=== PATIENT | female | born 1990 | race Caucasian/White ===

== ENCOUNTER → 2021-02-15 14:19 | Outpatient (BNVA) | payer MEDICAID, SELFPAY | PROVIDERS: Family Provider Family Medicine; Visit Provider Nurse Practitioner Women's Health | DX: Z32.01 Encounter for pregnancy test, result positive (principal); N92.6 Irregular menstruation, unspecified; Z87.59 Personal history of other complications of pregnancy, childbirth and the puerperium | CPT/HCPCS: 81025; 84702 ==

== ENCOUNTER → 2021-02-19 15:23 | Outpatient (BNVA) | payer MEDICAID, SELFPAY | PROVIDERS: Family Provider Family Medicine; Visit Provider Nurse Practitioner Women's Health | DX: Z34.90 Encounter for supervision of normal pregnancy, unspecified, unspecified trimester (principal) | CPT/HCPCS: 84702 ==

== ENCOUNTER 2021-03-03 22:56 | Emergency (ER) | payer MEDICAID, SELFPAY ==
[2021-03-03 23:13] VITALS: BP 123/65; PULSE 90; RESP 15; TEMP 36.9; O2SAT 100; BMI 31.1
--- NOTE | 2021-03-04 01:37 | W.ED.PREGNAN ---
HPI - General: Chief complaint: OB/Uterine Contractions Stated complaint: Possible Miscarriage Time Seen by Provider: 03/04/21 01:09 Source: patient Mode of arrival: ambulatory Limitations: no limitations History of Present Illness: HPI Narrative: Patient is a 30-year-old female here at approximately 6 weeks for concerns of a probable miscarriage. She states has been confirmed and [facility] She reportedly had an ultrasound a week ago that she was told was ordered by mistake stating that she was told they normally do not order ultrasounds that early. She reports the US read her as a little over 5 weeks and they did not visualize HR but was told this was normal given her dates. She states today she began having a small amount of vaginal bleeding and cramping. She states bleeding is not enough to soak a pad. Patient is very tearful as she has had several miscarriages previously. MD Complaint: vaginal bleeding and other (probable miscarriage) Onset (ago): hour(s) Location: pelvis Severity: mild Quality: Cramping Relieving factors: none Exacerbating factors: none Vaginal discharge: none Vaginal bleeding: light Date of Last Menstrual Period: 01/16/21 Patient : Yes OB History - Previous Pregnancies: miscarriage care: followed by OB Associated symptoms: Deny abdominal pain, dyspareunia, dysuria, headache(s), malaise, nausea, vaginal discharge or vomiting Review of Systems Const: Denies: fever(s), chills, body aches, fatigue or malaise Card: Denies: chest pain Resp: Denies: dyspnea GI: Denies: abdominal pain, nausea, vomiting or diarrhea : Reports: vaginal bleeding and pelvic pain (mild cramping); Denies: flank pain, difficulty voiding, dysuria, urinary frequency, urinary urgency, urinary hesitancy, hematuria, genital lesions, genital pruritis, vaginal odor, vaginal discharge or dyspareunia Musc: Denies: neck pain or back pain Skin/Breast: Denies: rash Neuro: Denies: headache(s), numbness in extremities, weakness in extremities or sensory changes PFSH ED PFSH: Medical History (Updated 03/04/21 @ 02:35 by JORDIN Marion) No pertinent past medical history neg hx: hypertension, diabetes, thyroid, DVT/PE PCP: none Surgical History (Updated 02/15/21 @ 15:22 by Macey Ramirez APN, HUSSEIN) H/O dilation and curettage x1-- SAB H/O wisdom tooth extraction 2014 S/P cholecystectomy 2017 Family History Mother Diabetes Grandmother Breast cancer paternal, age onset 40's Father Diabetes Hypertension Hyperlipidemia Thyroid condition Grandfather Heart disease paternal Family/Other Uterine cancer maternal aunt, age onset 30's Ovarian cancer maternal aunt, age onset 30's Denies family history of Colon cancer Clotting disorder Anesthesia complication Bleeding disorder Stroke Female Reproductive History: Date of last menstrual period: 01/16/21 Physical Exam Const: COMMON NORMALS: no acute distress, patient oriented x3, no limitations and alert GENERAL APPEARANCE: cooperative, anxious and other (tearful) ORIENTATION/CONSCIOUSNESS: Yes awake, Yes oriented to person, Yes oriented to place and Yes oriented to time Resp: COMMON NORMALS: normal respiratory effort and clear to auscultation bilaterally AUSCULTATION: clear to auscultation bilaterally Cardio: COMMON NORMALS: regular rate and regular rhythm RATE: regular rate RHYTHM: regular rhythm GI: COMMON NORMALS: Normal to inspection, nondistended, normoactive bowel sounds present, Soft to palpation, non-tender, No hepatosplenomegaly present and no masses PALPATION: Yes Soft to palpation and Yes No hepatosplenomegaly present : COMMON NORMALS: Yes no CVA tenderness BLADDER/KIDNEY EXAM: Yes no CVA tenderness OB/EXTERNAL & SPECULUM: Deferred OB/external & speculum exam MANUAL OB EXAM: Deferred manual OB exam Back/Pelvis: COMMON NORMALS: no CVA tenderness Neuro: COMMON NORMALS: patient oriented x3 SENSORIUM/ORIENTATION: Yes alert, Yes oriented to person, Yes oriented to place and Yes oriented to time Skin: COMMON NORMALS: no rashes or lesions noted GENERAL SKIN EXAM: no rashes or lesions noted Course Vital Signs: Vital signs: Vital Signs Temperature 98.4 F 03/04/21 03:15 Pulse Rate 82 03/04/21 03:15 Respiratory Rate 16 03/04/21 03:15 Blood Pressure 118/78 03/04/21 03:15 Pulse Oximetry 99 03/04/21 03:15 MDM - OB/Uterine Contractions MDM Narrative: Medical decision making narrative: Patient had hcg performed almost 14 days ago at [facility] and it was 779. Today it is decreased to 613. I informed patient that most likely this will not be a viable given these results. I do not think US at this time would be overly beneficial as she is still incredibly early and she just had one less than a week ago. I expressed the importance of following up with [facility] so they can continue to monitor this-she states she probably won't follow up with them but said she will find another provider. Strict return to ED precautions given regarding worsening bleeding, cramping, fevers. She verbalized understanding. Lab Data: Labs: Lab Results 03/04/21 03/04/21 03/04/21 Range/Units 01:40 01:40 01:40 WBC 9.6 (4.0-10.0) 10^3/ uL RBC 4.33 (4.1-5.3) 10^6/u L Hgb 11.5 (11.5-15.3) g/dL Hct 37.1 (37.0-47.0) % MCV 85.7 (81-99) fL MCH 26.6 L (28.0-34.0) pg MCHC 31.0 (30.0-36.0) g/dL RDW 13.9 (12.1-15.1) % Plt Count 262 (130-400) 10^3/c mm MPV 10.3 (7.4-10.4) fL Neut % (Auto) 60.8 % Lymph % (Auto) 30.7 % Upton % (Auto) 6.7 % Eos % (Auto) 1.1 % Baso % (Auto) 0.4 % Neut # (Auto) 5.85 (1.8-7.7) 10^3/u L Lymph # (Auto) 3.0 (0.8-4.8) 10^3/u L Upton # (Auto) 0.7 (0.2-0.9) 10^3/u L Eos # (Auto) 0.1 (0.0-0.8) 10^3/u L Baso # (Auto) 0.0 (0.0-0.1) 10^3/u L Nucleated RBC % (a uto) 0 % Nucleated RBCs # 0.0 /100WBC Sodium 141 (136-145) mmol/L Potassium 3.6 (3.5-5.1) mmol/L Chloride 106 (98-107) mmol/L Carbon Dioxide 25 (22-29) mmol/L Anion Gap 13.6 (5-19) BUN 9 (6-20) mg/dL Creatinine 0.6 (0.5-0.9) mg/dL GFR Calculation 119.0 (90-130) mL/min Glucose 94 (65-115) mg/dL Calculated Osmolal ity 290 (285-295) mOsm/k g Calcium 8.9 (8.5-10.5) mg/dL Total Bilirubin 0.2 (0.15-1.2) mg/dL AST 13 (0-32) U/L ALT 10 (0-33) U/L Alkaline Phosphata se 85 (35-105) IU/L Total Protein 6.6 (6.6-8.7) g/dL Albumin 3.9 (3.5-5.2) g/dL Globulin 2.7 (1.3-4.6) g/dL Ser , Tyesha i-Qnt 613.10 mIU/mL Urine Color (Yellow) Urine Appearance (CLEAR) Urine pH (5-7) Ur Specific Gravit y (1.005-1.030) Urine Protein (Negative) Urine Glucose (UA) (Normal) Urine Ketones (Negative) Urine Blood (Negative) Urine Nitrate (Negative) Urine Bilirubin (Negative) Urine Urobilinogen (Negative) mg/dL Ur Leukocyte Lilia ase (Negative) Urine RBC (0-2) /hpf Urine WBC (0-5) /hpf Ur Squamous Epith Cells (0-5) /hpf Amorphous Sediment /hpf Urine Bacteria (NONE) /hpf Urine Mucus /hpf Blood Type A Positive Rho(D) Type Positive / 4+ 03/04/21 Range/Units 01:46 WBC (4.0-10.0) 10^3/ uL RBC (4.1-5.3) 10^6/u L Hgb (11.5-15.3) g/dL Hct (37.0-47.0) % MCV (81-99) fL MCH (28.0-34.0) pg MCHC (30.0-36.0) g/dL RDW (12.1-15.1) % Plt Count (130-400) 10^3/c mm MPV (7.4-10.4) fL Neut % (Auto) % Lymph % (Auto) % Upton % (Auto) % Eos % (Auto) % Baso % (Auto) % Neut # (Auto) (1.8-7.7) 10^3/u L Lymph # (Auto) (0.8-4.8) 10^3/u L Upton # (Auto) (0.2-0.9) 10^3/u L Eos # (Auto) (0.0-0.8) 10^3/u L Baso # (Auto) (0.0-0.1) 10^3/u L Nucleated RBC % (a uto) % Nucleated RBCs # /100WBC Sodium (136-145) mmol/L Potassium (3.5-5.1) mmol/L Chloride (98-107) mmol/L Carbon Dioxide (22-29) mmol/L Anion Gap (5-19) BUN (6-20) mg/dL Creatinine (0.5-0.9) mg/dL GFR Calculation (90-130) mL/min Glucose (65-115) mg/dL Calculated Osmolal ity (285-295) mOsm/k g Calcium (8.5-10.5) mg/dL Total Bilirubin (0.15-1.2) mg/dL AST (0-32) U/L ALT (0-33) U/L Alkaline Phosphata se (35-105) IU/L Total Protein (6.6-8.7) g/dL Albumin (3.5-5.2) g/dL Globulin (1.3-4.6) g/dL Ser , Tyesha i-Qnt mIU/mL Urine Color Yellow (Yellow) Urine Appearance Sl cloudy A (CLEAR) Urine pH 7 (5-7) Ur Specific Gravit y 1.010 (1.005-1.030) Urine Protein Neg (Negative) Urine Glucose (UA) Norm (Normal) Urine Ketones Negative (Negative) Urine Blood 3+ H (Negative) Urine Nitrate Negative (Negative) Urine Bilirubin Neg (Negative) Urine Urobilinogen 4 H (Negative) mg/dL Ur Leukocyte Lilia ase 1+ H (Negative) Urine RBC 40-50 H (0-2) /hpf Urine WBC 10-15 H (0-5) /hpf Ur Squamous Epith Cells 25-40 H (0-5) /hpf Amorphous Sediment 1+ /hpf Urine Bacteria 3+ H (NONE) /hpf Urine Mucus 1+ /hpf Blood Type Rho(D) Type Discharge Plan Discharge Patient Disposition: Home Clinical Impression: Non-viable Condition: Stable Prescriptions: No Action No Known Home Medications RF: 0 Discharge Orders: Discharge ED (Routine); Ordered 03/04/21 Ordered By: Marina Vallejo Patient Instructions: Spontaneous Miscarriage (ED) Coding Level of Care Code ED [employer] Supervisor for Filemon Negrete
[2021-03-04 01:52] LABS: Basophils % 0.4 %; Eosinophils # 0.1 10^3/uL (0.0-0.8); Eosinophils % 1.1 %; Hematocrit 37.1 % (37.0-47.0); Hemoglobin 11.5 g/dL (11.5-15.3); Lymphocytes % 30.7 %; Mean Corpuscular Hemoglobin 26.6 pg (28.0-34.0); Mean Corpuscular Volume 85.7 fL (81-99); Mean Platelet Volume 10.3 fL (7.4-10.4); Monocytes # 0.7 10^3/uL (0.2-0.9); Monocytes % 6.7 %; Neutrophils # 5.85 10^3/uL (1.8-7.7); Neutrophils % 60.8 %; Nucleated Red Blood Cells % 0 %; Platelet Count 262 10^3/cmm (130-400); Red Blood Count 4.33 10^6/uL (4.1-5.3); Red Cell Distribution Width 13.9 % (12.1-15.1); White Blood Count 9.6 10^3/uL (4.0-10.0)
[2021-03-04 02:02] LABS: Add Urine Microscopic? YES; Bilirubin Urine Neg (Negative); Blood Urine 3+ (Negative); Glucose Urine UA Norm (Normal); Ketones Urine Negative (Negative); Leukocyte Esterase Urine 1+ (Negative); Nitrate Urine Negative (Negative); Protein Urine Neg (Negative); Urine Color Yellow (Yellow); Urobilinogen Urine 4 mg/dL (Negative); pH Urine 7 (5-7)
[2021-03-04 02:03] LABS: RBC Urine 40-50 /hpf (0-2)
[2021-03-04 02:04] LABS: Add Urine Culture? No; Amorphous Sediment Urine 1+ /hpf; Bacteria Urine 3+ /hpf; Mucus Urine 1+ /hpf; Squamous Epithelial Cell Urine 25-40 /hpf (0-5)
[2021-03-04 02:20] LABS: Alanine Aminotransferase 10 U/L (0-33); Albumin Level 3.9 g/dL (3.5-5.2); Alkaline Phosphatase 85 IU/L (35-105); Anion Gap 13.6 (5-19); Aspartate Amino Transferase 13 U/L (0-32); Blood Urea Nitrogen 9 mg/dL (6-20); Calcium 8.9 mg/dL (8.5-10.5); Carbon Dioxide 25 mmol/L (22-29); Chloride 106 mmol/L (98-107); Globulin 2.7 g/dL (1.3-4.6); Glucose 94 mg/dL (65-115); Osmolality Calculated 290 mOsm/kg (285-295); Potassium 3.6 mmol/L (3.5-5.1); Sodium 141 mmol/L (136-145); Total Bilirubin 0.2 mg/dL (0.15-1.2); Total Protein 6.6 g/dL (6.6-8.7)
[2021-03-04 03:15] VITALS: BP 118/78; PULSE 82; RESP 16; TEMP 36.9; O2SAT 99
== END 2021-03-04 03:17 | disposition home or self-care (01) ==
PROVIDERS: Emergency Provider Physician Assistant
DX: O36.4XX0 Maternal care for intrauterine death, not applicable or unspecified (principal); Z3A.01 Less than 8 weeks gestation of pregnancy
CPT/HCPCS: 80053; 81001; 84702; 85025; 86900; 99282

== ENCOUNTER 2021-05-14 16:43 | Emergency (ER) | payer MEDICAID, SELFPAY ==
[2021-05-14 17:06] VITALS: BP 104/73; PULSE 90; RESP 17; TEMP 37; O2SAT 98; BMI 30.2
[2021-05-14 20:50] LABS: Basophils % 0.3 %; Eosinophils # 0.1 10^3/uL (0.0-0.8); Eosinophils % 0.6 %; Hematocrit 38.5 % (37.0-47.0); Hemoglobin 12.4 g/dL (11.5-15.3); Lymphocytes % 25.3 %; Mean Corpuscular HGB Conc 32.2 g/dL (30.0-36.0); Mean Corpuscular Hemoglobin 27.3 pg (28.0-34.0); Mean Corpuscular Volume 84.6 fl (81-99); Mean Platelet Volume 10.2 fL (7.4-10.4); Monocytes # 0.7 10^3/uL (0.2-0.9); Monocytes % 5.7 %; Neutrophils # 8.06 10^3/uL (1.8-7.7); Neutrophils % 67.8 %; Nucleated Red Blood Cells % 0 %; Platelet Count 313 10^3/cmm (130-400); Red Blood Count 4.55 10^6/uL (4.1-5.3); Red Cell Distribution Width 14.1 % (12.1-15.1); White Blood Count 11.9 10^3/uL (4.0-10.0)
--- NOTE | 2021-05-14 21:34 | W.ED.ABDPA2 ---
HPI - Abdominal Pain General: Chief Complaint: Abdominal Pain Stated Complaint: L ABD PAIN;(UNKNOWN HOW FAR ALONG) Time Seen by Provider: 05/14/21 21:25 History of Present Illness: HPI narrative: 31-year-old female reports that she is . She estimates about 8 weeks. She had her last menstrual cycle in January 2021 but then had a miscarriage at the end of February. She did not have a period again as she immediately got . She has not had a first trimester ultrasound at this point. She reports her Rh status is positive. Patient is here today with several days of left lower quadrant abdominal pain that is sharp and burning. Patient reports daily bowel movements without any change. She denies any back pain. She has been having vomiting in the mornings for the last 4 days. She does feel waves of nausea and fatigue come over her. She has a history of cholecystectomy. She denies any vaginal bleeding, hematuria, dysuria, urinary frequency or urgency. She has no known history of diverticulitis. She was sent over by her doctor to make sure that she does not have an ectopic . She is G9 Living 3, miscarriages x5 in first trimester. Associated Symptoms: Reports bloating, GI cramping, nausea and vomiting; Denies chills, constipation, diarrhea, dysuria, fever(s), hematochezia, hematuria, hematemesis and syncope Related Data: Date of Last Menstrual Period: 01/16/21 Review of Systems General: Reports: 10 or more systems reviewed and unremarkable except in HPI and below Const: Reports: body aches, change in appetite, fatigue and malaise; Denies: fever(s) or chills Eyes: Denies: change in vision ENMT: Denies: throat pain Card: Reports: lightheadedness; Denies: chest pain, palpitations, edema or syncope Resp: Denies: dyspnea or productive cough GI: Reports: abdominal pain, nausea, vomiting, bloating and GI cramping; Denies: hematemesis, diarrhea, constipation or hematochezia : Denies: flank pain, difficulty voiding, dysuria, urinary frequency, urinary urgency, urinary hesitancy, hematuria or vaginal discharge Musc: Denies: neck pain, back pain, extremity pain or extremity swelling Skin/Breast: Denies: rash or erythema Neuro: Denies: headache(s), numbness in extremities, weakness in extremities, lack of coordination or difficulty walking PFSH ED PFSH: Medical History (Updated 05/14/21 @ 22:23 by Luther Parmar MD) No pertinent past medical history neg hx: hypertension, diabetes, thyroid, DVT/PE PCP: none Surgical History (Updated 02/15/21 @ 15:22 by Macey Ramirez APN, HUSSEIN) H/O dilation and curettage x1-- SAB H/O wisdom tooth extraction 2014 S/P cholecystectomy 2017 Family History Mother Diabetes Grandmother Breast cancer paternal, age onset 40's Father Diabetes Hypertension Hyperlipidemia Thyroid condition Grandfather Heart disease paternal Family/Other Uterine cancer maternal aunt, age onset 30's Ovarian cancer maternal aunt, age onset 30's Denies family history of Colon cancer Clotting disorder Anesthesia complication Bleeding disorder Stroke Female Reproductive History: Date of last menstrual period: 01/16/21 Physical Exam Const: COMMON NORMALS: no limitations, healthy appearing, alert and well nourished EXAM LIMITATIONS: no altered mental status GENERAL APPEARANCE: cooperative, well kempt and well developed; not in distress and not ill appearing NUTRITIONAL APPEARANCE: overweight ORIENTATION/CONSCIOUSNESS: Yes awake; not confused HENMT: COMMON NORMALS: normocephalic, atraumatic, external ears normal and Normal external nose present HEAD & SCALP: normal to inspection, normocephalic and atraumatic FACE & SINUS: face symmetric NOSE: Normal external nose present EXTERNAL EAR: Yes external ears normal MOUTH: lip normal; no muffled voice Eye: COMMON NORMALS: EOMs intact bilaterally and conjunctivae normal GENERAL EYE: appearance normal, both eyes and all related structures CONJUNCTIVA: Yes conjunctivae normal Neck/C-Spine: COMMON NORMALS: no JVD GENERAL: Yes normal visual inspection and Yes trachea midline Resp: COMMON NORMALS: normal respiratory effort, No use of accessory muscles and clear to auscultation bilaterally EFFORT & INSPECTION: Yes able to speak in complete sentences and Yes symmetric chest movement AUSCULTATION: clear to auscultation bilaterally Cardio: COMMON NORMALS: no JVD, regular rate and regular rhythm RATE: regular rate RHYTHM: regular rhythm PERIPHERAL PULSES: radial pulses present GI: COMMON NORMALS: Soft to palpation and no masses INSPECTION: Yes normal to inspection, No abdominal wall ecchymosis, No abdominal distension, Yes central obesity and No Fluid wave present PALPATION: Yes Soft to palpation, Yes Tenderness to palpation present (GI) (minimal diffuse pelvic pain with deep palpation), No Guarding due to palpation present (GI), No Rigid due to palpation and No Rebound tenderness present PERCUSSION: no fluid wave : BLADDER/KIDNEY EXAM: No CVA tenderness Back/Pelvis: COMMON NORMALS: thoraco-lumbar ROM normal GENERAL BACK: No CVA tenderness LUMBAR SPINE/LOWER BACK: Yes paraspinal muscle tenderness Extremity: COMMON NORMALS: normal to inspection GENERAL: Yes normal exam except as noted Neuro: COMMON NORMALS: moves all extremities, no focal motor deficits and no sensory deficits noted SENSORIUM/ORIENTATION: Yes alert Psych: COMMON NORMALS: mental status grossly normal, Normal thought process present, cooperative, normal affect and speech normal APPEARANCE: Yes well kempt SPEECH: Yes normal speech THOUGHT PROCESS: Normal thought process present Skin: COMMON NORMALS: no rashes or lesions noted, turgor normal and no jaundice GENERAL SKIN EXAM: no rashes or lesions noted and turgor normal Course Vital Signs: Vital signs: Vital Signs Temperature 98.6 F 05/14/21 17:06 Pulse Rate 87 05/14/21 21:38 Respiratory Rate 18 05/14/21 21:38 Blood Pressure 114/72 05/14/21 21:38 Pulse Oximetry 98 05/14/21 21:38 MDM - Abdominal Pain MDM Narrative: Medical decision making narrative: 31 yo f with chief concern of left lower abdominal/pelvic pain. ddx includes pain, abdominal wall strain from vomiting, ectopic, diverticulitis, uti, cystitis, PID, ovarian cyst, neoplas, colitis, atypical appendicitis, constipation, fecal retention, etc. She does not appear toxic and has minimal abdominal tenderness with deep palpation. UPDATE: HCG 77k I have ordered pelvic US. 2233: Sign out to Dr Salgado pending UA and pelvic US. Lab Data: Labs: Lab Results 05/14/21 05/14/21 05/14/21 Range/Units 20:37 20:37 20:37 WBC 11.9 H (4.0-10.0) 10^3/ uL RBC 4.55 (4.1-5.3) 10^6/u L Hgb 12.4 (11.5-15.3) g/dL Hct 38.5 (37.0-47.0) % MCV 84.6 (81-99) fl MCH 27.3 L (28.0-34.0) pg MCHC 32.2 (30.0-36.0) g/dL RDW 14.1 (12.1-15.1) % Plt Count 313 (130-400) 10^3/c mm MPV 10.2 (7.4-10.4) fL Neut % (Auto) 67.8 % Lymph % (Auto) 25.3 % Childress % (Auto) 5.7 % Eos % (Auto) 0.6 % Baso % (Auto) 0.3 % Neut # (Auto) 8.06 H (1.8-7.7) 10^3/u L Lymph # (Auto) 3.0 (0.8-4.8) 10^3/u L Childress # (Auto) 0.7 (0.2-0.9) 10^3/u L Eos # (Auto) 0.1 (0.0-0.8) 10^3/u L Baso # (Auto) 0.0 (0.0-0.1) 10^3/u L Nucleated RBC % (a uto) 0 % Nucleated RBCs # 0.0 /100WBC Sodium 135 L (136-145) mmol/L Potassium 3.7 (3.5-5.1) mmol/L Chloride 101 (98-107) mmol/L Carbon Dioxide 23 (22-29) mmol/L Anion Gap 14.7 (5-19) BUN 6 (6-20) mg/dL Creatinine 0.5 (0.5-0.9) mg/dL GFR Calculation 145.9 H (90-130) mL/min Glucose 78 (65-115) mg/dL Calculated Osmolal ity 276 L (285-295) mOsm/k g Calcium 9.0 (8.5-10.5) mg/dL Lipase 35 (13-60) U/L Ser , Tyesha i-Qnt 71990.00 mIU/mL Blood Type A Positive Rho(D) Type Positive Discharge Plan Discharge Clinical Impression: Vomiting affecting , Intrauterine , Acute left lower quadrant pain, Rh(D) positive Condition: Stable Prescriptions: No Action No Known Home Medications RF: 0 Referrals: Damien Loo MD [Primary Care Provider] - 1-3 days (Follow-up for abdominal pain affecting and vomiting.) Discharge Diet: Advance as tolerated Discharge Activity: Resume usual activity Patient Instructions: Abdominal Pain (ED), Abdominal Pain in (ED) Coding Level of Care Code ED [employer] Dispatcher for Chg Fwd Exam Comprehensive
--- NOTE | 2021-05-14 21:37 | PC.NURSE ---
Assumed care at 2119
[2021-05-14 21:38] VITALS: BP 114/72; PULSE 87; RESP 18; O2SAT 98
[2021-05-14 21:47] LABS: Anion Gap 14.7 (5-19); Blood Urea Nitrogen 6 mg/dL (6-20); Carbon Dioxide 23 mmol/L (22-29); Chloride 101 mmol/L (98-107); Glomerular Filtration Rate 145.9 mL/min (90-130); Glucose 78 mg/dL (65-115); Lipase 35 U/L (13-60); Osmolality Calculated 276 mOsm/kg (285-295); Potassium 3.7 mmol/L (3.5-5.1); Sodium 135 mmol/L (136-145)
[2021-05-14] MEDS: ondansetron 2 mg/ML SDV 2 mL 4 MG IVP (22:01)
[2021-05-14] MEDS: sodium chloride 0.9% 1,000 ML 999 ML IV (22:02)
--- NOTE | 2021-05-14 22:10 | USR_ITS ---
PROCEDURE INFORMATION: Exam: US First Trimester, Transabdominal and US , Transvaginal Exam date and time: 05/14/2021 10:10 PM Age: 31 years old Clinical indication: complicated by abdominal or pelvic pain; Right lower quadrant; First trimester (<14 weeks 0 days); Gestational age or lmp: 9 w 5 d; ; Additional info: Llq pain, hcg 77k, eval for iup, R/O ectopic TECHNIQUE: Imaging protocol: Real-time transabdominal obstetrical ultrasound of the maternal pelvis and a first trimester , less than 14 weeks 0 days, with image documentation. Transvaginal imaging was used for better evaluation of the fetus, adnexa, and/or cervix. COMPARISON: US OB transvaginal [facility] 02/26/2021 3:19 PM FINDINGS: Gestation: Single intrauterine gestation. No yolk sac visualized. Embryonic/ heart rate: 164 bpm. Extra-embryonic membranes/Placenta: Unremarkable. No subchorionic bleed. Amniotic fluid: Amniotic fluid is normal for gestational age. BIOMETRY: Gestational age (AUA): 9 weeks 5 days Betances-Rump length: 2.89 cm. MATERNAL: Uterus: Unremarkable. Cervix: The cervix is suboptimally visualized due to position and shadowing. Right adnexa: The right ovary measures 3.4 x 3.0 x 3.1 cm with normal blood flow. Left adnexa: Left ovary measures 3.0 x 3.4 x 3.7 cm with normal blood flow. Intraperitoneal space: No intraperitoneal free fluid. US/US OB <= 14 weeks fetus [id number] IMPRESSION: 1. Single living intrauterine gestation estimated at 9 weeks 5 days. 2. Estimated due date 12/12/2021.
[2021-05-14 22:38] LABS: Add Urine Culture? No; Add Urine Microscopic? YES; Bacteria Urine 2+ /hpf; Bilirubin Urine 1+ (Negative); Blood Urine 2+ (Negative); Glucose Urine UA Norm (Normal); Ketones Urine Negative (Negative); Leukocyte Esterase Urine 2+ (Negative); Nitrate Urine Negative (Negative); Protein Urine Neg (Negative); RBC Urine 0-4 /hpf (0-2); Specific Gravity, Urine 1.015 (1.005-1.030); Squamous Epithelial Cell Urine >100 /hpf (0-5); Urine Appearance Cloudy (CLEAR); Urine Color Yellow (Yellow); Urobilinogen Urine 1 mg/dL (Negative); WBC Urine >100 /hpf (0-5); pH Urine 5 (5-7)
[2021-05-14 22:55] LABS: SARS Covid-2 Antigen Negative (Negative)
[2021-05-14 23:10] VITALS: BP 106/61; PULSE 79; RESP 18; O2SAT 99
[2021-05-14 23:12] VITALS: BP 106/61; PULSE 79; RESP 18; TEMP 37; O2SAT 99
== END 2021-05-14 23:16 | disposition home or self-care (01) ==
PROVIDERS: Emergency Medicine; Nurse Practitioner Family; Emergency Provider Emergency Medicine; PCP Family Medicine
DX: O26.891 Other specified pregnancy related conditions, first trimester (principal); R10.32 Left lower quadrant pain; O21.9 Vomiting of pregnancy, unspecified; Z3A.09 9 weeks gestation of pregnancy; Z20.822 Contact with and (suspected) exposure to COVID-19
CPT/HCPCS: 76801; 80048; 81001; 83690; 84702; 85025; 86900; 87426; 96361; 96374; 99283; J2405; J7030

== ENCOUNTER 2021-09-18 08:40 | Outpatient (CLI) | payer BC, MEDICAID, SELFPAY ==
[2021-09-18 09:07] VITALS: TEMP 36.3
[2021-09-18 09:08] VITALS: BP 99/55; PULSE 85
[2021-09-18 09:25] VITALS: BP 92/50; PULSE 80
--- NOTE | 2021-09-18 09:37 | US_ITS ---
WS: [id number] ULTRASOUND OB COMPLETE TECHNIQUE: Complete ultrasound. CLINICAL INFORMATION: 28 weeks gestation; bleeding and contractions COMPARISON: May 14, 2021 FINDINGS: Closed cervix measures 5.0 cm Single interuterine gestation is identified with vertex presentation. Placenta is posterior. Placenta grade 0. Normal amniotic fluid volume. CHIRAG 14.4 cm cardiac activity: 141 BPM. AGA: 27 weeks 6 days EMELI by ultrasound: December 12, 2021 US/US OB >= 14 weeks fetus [id number] IMPRESSION: 1. Single intrauterine with visualized cardiac activity. AGA 27 week s 6 days with EMELI December 12, 2021. 2. Placenta is posterior No evidence of abruption or previa. 3. Normal amniotic fluid volume. CHIRAG 14.4 cm just below the median 4. Cervix is long and closed.
[2021-09-18 10:35] LABS: Add Urine Microscopic? NO; Charge for UA Resulting for Rev
[2021-09-18 10:53] LABS: Bilirubin Urine Neg (Negative); Blood Urine Neg (Negative); Glucose Urine UA Norm (Normal); Ketones Urine Negative (Negative); Leukocyte Esterase Urine Negative (Negative); Nitrate Urine Negative (Negative); Protein Urine Neg (Negative); Urine Appearance Clear (CLEAR); Urine Color Yellow (Yellow); Urobilinogen Urine Norm (Negative); pH Urine 8 (5-7)
== END 2021-09-18 11:25 | disposition home or self-care (01) ==
LOC: OPOB 08:49 → OBGYN 08:51
PROVIDERS: PCP Family Medicine; Visit Provider Family Medicine
DX: O46.90 Antepartum hemorrhage, unspecified, unspecified trimester (principal); Z3A.00 Weeks of gestation of pregnancy not specified; R10.9 Unspecified abdominal pain
CPT/HCPCS: 59025; 76805; 81003; 99211

== ENCOUNTER 2021-10-23 13:15 | Outpatient (CLI) | payer BC, SELFPAY ==
[2021-10-23 13:35] VITALS: BP 107/66; PULSE 91
[2021-10-23 13:40] VITALS: TEMP 36
[2021-10-23 13:45] VITALS: RESP 15; BMI 33.8
[2021-10-23 13:50] VITALS: BP 98/56; PULSE 93
[2021-10-23 14:05] VITALS: BP 105/71; PULSE 87
== END 2021-10-23 14:18 | disposition home or self-care (01) ==
LOC: OPOB 13:19 → OBGYN 13:22
PROVIDERS: PCP Family Medicine; Visit Provider Obstetrics & Gynecology
DX: O26.899 Other specified pregnancy related conditions, unspecified trimester (principal); Z3A.00 Weeks of gestation of pregnancy not specified; N89.8 Other specified noninflammatory disorders of vagina
CPT/HCPCS: 99211

== ENCOUNTER 2021-11-25 06:53 | Outpatient (CLI) | payer BC, SELFPAY ==
[2021-11-25 07:05] VITALS: BP 110/68; PULSE 93
[2021-11-25 07:37] VITALS: BP 115/60; PULSE 91
[2021-11-25 08:08] VITALS: BP 111/66; PULSE 85
[2021-11-25 08:37] VITALS: BP 105/66; PULSE 93
== END 2021-11-25 08:45 | disposition home or self-care (01) ==
LOC: OPOB 06:53 → OBGYN 06:55
PROVIDERS: PCP Family Medicine; Visit Provider Family Medicine
DX: O26.899 Other specified pregnancy related conditions, unspecified trimester (principal); Z3A.00 Weeks of gestation of pregnancy not specified; R10.9 Unspecified abdominal pain
CPT/HCPCS: 59025; 99211

== ENCOUNTER 2021-12-01 07:36 | Inpatient (IN) | payer BC, MEDICAID, SELFPAY ==
[2021-12-01] VITALS (146 sets, daily range): BP systolic 70–127; BP diastolic 11–81; PULSE 44–153; RESP 16; TEMP 36.2–36.7; O2SAT 93–100; BMI 36.7
[2021-12-01 07:55] LABS: Basophils % 0.2 %; Eosinophils % 0.2 %; Hematocrit 28.4 % (37.0-47.0); Hemoglobin 8.8 g/dL (11.5-15.3); Lymphocytes # 1.4 10^3/uL (0.8-4.8); Lymphocytes % 17.1 %; Mean Corpuscular Hemoglobin 23.7 pg (28.0-34.0); Mean Corpuscular Volume 76.5 fl (81-99); Mean Platelet Volume 10.8 fL (7.4-10.4); Monocytes # 0.4 10^3/uL (0.2-0.9); Monocytes % 5.3 %; Neutrophils # 6.42 10^3/uL (1.8-7.7); Neutrophils % 76.6 %; Nucleated Red Blood Cells % 0 %; Platelet Count 190 10^3/cmm (130-400); Red Blood Count 3.71 10^6/uL (4.1-5.3); Red Cell Distribution Width 14.6 % (12.1-15.1); White Blood Count 8.4 10^3/uL (4.0-10.0)
[2021-12-01] MEDS: lactated ringers 1,000 ML 999 ML IV ×2 (08:10→10:03)
[2021-12-01] MEDS: dextrose 5%-lactated ringers 1,000 ML 125 ML IV ×2 (08:57→14:08)
[2021-12-01] MEDS: ePHEDrine 50 mg/mL Inj 10 MG IVP ×2 (09:20→09:21)
--- NOTE | 2021-12-01 10:37 | ANES.PREANE2 ---
Pre-Anesthetic Assessment Height/Weight: Height 1.57 m Weight 91.172 kg Temp Pulse BP Pulse Ox 97.2 F L 95 103/64 99 12/01/21 08:16 12/01/21 10:35 12/01/21 10:35 12/01/21 10:31 Familial anesthetic complications: None Was Beta Janessa taken within 24 hours: N/A Social No alcohol and No tobacco Exam alert, oriented x 3, clear to auscultation bilaterally and regular rate & rhythm Airway Submandibular: within normal limits Cervical ROM: within normal limits Mallampati: Class II Dentition: full History/ROS No significant history except as noted Anesthetic Plan ASA status: 2 Anesthesia: Regional (specify below) (Labor epidural) Medications/Allergies Home Medications Medication Instructions Recorded Confirmed Last Taken Type vit no.95-ferrous 1 tab PO DAILY 09/18/21 12/01/21 11/30/21 History fumarate 28 mg-folic acid 800 mcg tablet ( Multivitamins) Allergies Allergy/AdvReac Type Severity Reaction Status Date / Time Influenza Virus Vaccines Allergy Severe swelling, Verified 12/01/21 07:34 rash Latex, Natural Rubber Allergy Severe redness, Verified 12/01/21 07:34 swelling, itching Current Medications Generic Name Dose Route Start Last Admin Trade Name Freq PRN Reason Stop Dose Admin Ephedrine Sulfate 10 mg 12/01/21 07:36 12/01/21 09:21 Ephedrine 50 Mg/Ml Inj IVP 10 mg Q3M PRN Administration hypotension as directed by Dr. Scott Ringer's 1,000 mls @ 999 mls/hr 12/01/21 07:36 12/01/21 10:03 Lactated Ringers IV 999 mls/hr .Q1H1M PRN Administration Per L&D Rescitation Protocol Dextrose/Lactated Ringer's 1,000 mls @ 125 mls/hr 12/01/21 07:45 12/01/21 08:57 Dextrose 5%-Lactated Ringers IV 125 mls/hr .Q8H BARNEY Administration Ropivacaine 200 mg in 100 mls @ 13 mls/hr 12/01/21 07:45 12/01/21 09:20 Naropin Premix EPIDURAL 0 mls/hr .Q7H42M BARNEY Infusion Lactated Ringer's 1,000 mls @ 999 mls/hr 12/01/21 07:38 12/01/21 08:10 Lactated Ringers IV 999 mls/hr .Q1H1M PRN Administration See label comments PFSH Anesthesia Medical History (Updated 05/22/21 @ 00:01 by ) No pertinent past medical history neg hx: hypertension, diabetes, thyroid, DVT/PE PCP: none Surgical History (Updated 02/15/21 @ 15:22 by Macey Ramirez APN, HUSSEIN) H/O dilation and curettage x1-- SAB H/O wisdom tooth extraction 2015 S/P cholecystectomy 2017 Family History Mother Diabetes Grandmother Breast cancer paternal, age onset 40's Father Diabetes Hypertension Hyperlipidemia Thyroid condition Grandfather Heart disease paternal Family/Other Uterine cancer maternal aunt, age onset 30's Ovarian cancer maternal aunt, age onset 30's Denies family history of Colon cancer Clotting disorder Anesthesia complication Bleeding disorder Stroke Female Reproductive History Date of last menstrual period: 01/16/21 : 10 Data Anesthesia : 12/01/21 07:45 Short CBC 12/01/21 Range/Units 07:45 WBC 8.4 (4.0-10.0) 10^3/uL Hgb 8.8 L (11.5-15.3) g/dL Hct 28.4 L (37.0-47.0) % MCV 76.5 L (81-99) fl Plt Count 190 (130-400) 10^3/cmm Neut % (Auto) 76.6 % Neut # (Auto) 6.42 (1.8-7.7) 10^3/uL Cardiac Studies: No Data to Display Anesthesia Procedures Epidural Time Out Performed: Yes Consents Signed: Procedure Consent Consent: requested by attending/covering physician, from patient, risks and benefits reviewed and patient agrees to proceed Lumbar Level: L3-L4 Epidural position: sitting Epidural procedure: sterile prep of area, 1% lidocaine to numb the area, 18 g needle, neg for paresthesia, test dose given, 1.5% xylocaine 1:200k epi, placed PCEA, no systemic response, sterile dressing applied and 0.2% Ropiavacaine @ mls/hr (13) Additional Comments: SAVI at 5cm, cath at 10cm, 5mls of 2% lido PF bolused through needle
[2021-12-01] MEDS: oxytocin 30 UNIT/500 ML BAG IV (11:38)
--- NOTE | 2021-12-01 12:58 | PM.MISC ---
Miscellaneous Note Purpose of Documentation: Epidural Bolus Note: Bolused 5mls of 2% lido and 100mcg fent
--- NOTE | 2021-12-01 15:26 | ANES.PROC ---
Anesthesia Procedures Procedure/Date: 12/01/21 epidural bolus Procedure Narrative: gave pt 2% Lidocaine MPF with 100mcg Fentanyl via epidural
--- NOTE | 2021-12-01 15:58 | PM.OPHPUD ---
Labor & Delivery H&P Update Date of Procedure: December 01, 2021 Date H&P Performed: 11/27/21 Changes to previous documentation: Spontaneous rupture of membranes Admission Diagnosis: 31-year-old 10 para 3-0-6-3 with an estimated gestational age of 38 weeks and 3 days presenting with spontaneous rupture of membranes Planned procedure: Spontaneous vaginal delivery Other information: The patient presented to the hospital with grossly ruptured membranes. Nitrazine confirmed the rupture. An epidural was placed later. The patient initially had some mental status changes when she had a panic attack at the time she had her epidural placed. There were no focal neurologic signs. The symptoms resolved within 15 to 20 minutes. Pitocin was initiated due to the fact that her contractions were spacing out. She then progressed to complete without difficulty. Her was relatively unremarkable. Her labs were within normal limits. She was GBS negative. She passed her glucose screen. Her blood type is a positive The remainder of her labs were within normal limits. The patient did desire a tubal ligation after her delivery. We discussed the risks and alternatives and my office multiple times including the risks of bleeding, infection, and damage to intra-abdominal organs. We also discussed the 1 and 200 chance of becoming again despite a successful tubal ligation. We also discussed the possibility of a tubal after a tubal ligation. Related Problem List Diagnoses (1) 38 weeks gestation of : (2) Spontaneous rupture of membranes:
--- NOTE | 2021-12-01 16:10 | PM.DELIVERY ---
Delivery Note: Date of delivery: December 01, 2021 Pre-delivery diagnoses: 1. 22-year-old 10 para 3-0-6-3 at 38 weeks and 3 days estimated gestational age presenting with spontaneous rupture of membranes Post-delivery diagnoses: Spontaneous vaginal delivery Procedure: Spontaneous vaginal delivery Delivering Physician: Tomas Taylor Estimated blood loss (mL): 150 Pre-Delivery Course: The patient presented to the hospital with spontaneous rupture of membranes. An epidural was placed. Pitocin was added. She progressed to complete without difficulty. Delivery: DELIVERY: The patient progressed to complete without difficulty. She delivered a female with a weight of 7 pounds 10 ounces with Apgars of 8, 9 the baby was delivered from the JULISSA position and placed on the mother's abdomen. The cord was then clamped and cut. There was a nuchal cord x1 that was reduced at the perineum. There was no meconium. The placenta and 3 vessel cord were delivered intact shortly thereafter. The perineum and vaginal vault were carefully examined. No lacerations were noted. Both the mother and the baby were in stable condition. Post-Delivery Status: Good History History History 8 Term 3 Miscarriages/Ectopic 5 0 Living Children 3 A&P Assessment and plan (1) Spontaneous vaginal delivery: I anticipate routine care. The patient once again made it clear that she desires a tubal ligation. We are getting it scheduled at this time. 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
[2021-12-01] MEDS: HYDROcodone-acetaminophen 5-325 mg Tablet PO (17:11)
[2021-12-01] MEDS: docusate sodium 100 mg Capsule PO (17:11)
[2021-12-01] MEDS: benzocaine-menthol 78 gm Canister 1 SPRAY TOPICAL (18:22)
[2021-12-01] MEDS: lanolin oint 7 gm 1 APPLIC TOPICAL (18:23)
[2021-12-01] MEDS: ibuprofen 800 mg tablet PO (20:59)
[2021-12-02] VITALS (19 sets, daily range): BP systolic 88–120; BP diastolic 53–86; PULSE 58–82; RESP 15–17; TEMP 36.3–36.7; O2SAT 96–100
[2021-12-02] MEDS: HYDROcodone-acetaminophen 5-325 mg Tablet PO ×3 (02:17→22:44)
[2021-12-02 04:55] LABS: Hematocrit 26.7 % (37.0-47.0); Hemoglobin 7.9 g/dL (11.5-15.3); Mean Corpuscular HGB Conc 29.6 g/dL (30.0-36.0); Mean Corpuscular Hemoglobin 23.6 pg (28.0-34.0); Mean Corpuscular Volume 79.7 fl (81-99); Mean Platelet Volume 11.7 fL (7.4-10.4); Platelet Count 157 10^3/cmm (130-400); Red Blood Count 3.35 10^6/uL (4.1-5.3); Red Cell Distribution Width 14.6 % (12.1-15.1); White Blood Count 9.2 10^3/uL (4.0-10.0)
--- NOTE | 2021-12-02 05:54 | ANE.PACU2 ---
Inpatient post-anesthesia follow up: Airway intact: Yes Vital signs: Temperature 97.7 F Pulse Rate 63 Respiratory Rate 16 Blood Pressure 92/61 Pulse Oximetry 97 Oxygen Delivery Me thod Room Air Oxygen Flow Rate Fraction of Inspir ed Oxygen Hydration adequate: Yes Nausea and vomiting: No Pain level: 2 Mental status: Baseline
[2021-12-02] MEDS: ondansetron 4 MG Tablet PO (07:25)
[2021-12-02] MEDS: ibuprofen 800 mg tablet PO ×2 (10:13→21:01)
[2021-12-02] MEDS: docusate sodium 100 mg Capsule PO ×2 (10:14→21:01)
[2021-12-02] MEDS: prenatal vitamin Capsule 1 CAP PO (10:14)
--- NOTE | 2021-12-02 15:36 | ANES.PREANE2 ---
Pre-Anesthetic Assessment Height/Weight: Height 1.57 m Weight 91.172 kg Temp Pulse Resp BP Pulse Ox 98.1 F 58 L 16 95/61 96 12/02/21 10:15 12/02/21 10:15 12/02/21 10:15 12/02/21 10:15 12/02/21 10:15 Preop Diagnosis: female desiring sterilization Operation Date: 12/02/21 17:10 Proposed Procedures p Post Bilateral Tubal Ligation(Bilateral) - Tomas Taylor MD Familial anesthetic complications: Hypotension with epidural, epidural failure with 2 pregnancies Was Beta Janessa taken within 24 hours: N/A Was Clonidine taken within 24 hours: N/A Social No alcohol and No tobacco Exam alert, oriented x 3, clear to auscultation bilaterally and regular rate & rhythm Airway Submandibular: within normal limits Cervical ROM: within normal limits Mallampati: Class II Dentition: full History/ROS No significant complaints Pulmonary None reported CV/HEM Anemia None reported Hepatic None reported GI None reported Metabolic None reported Neuropsych None reported Anesthetic Plan ASA status: 2 Anesthesia: Anesthesia Evaluation and Regional (specify below) (spinal) Other: We discussed risk and benefits of spinal anesthesia including infection, paralysis/catastrophic nerve injury, back bruising/pain, PDPH, conversion to general in case of spinal failure, intraoperative and PONV, life threatening allergic reaction, post operative ICU admission requiring prolonged intubation, stroke, heart attack. Risk of > 500 ml blood loss (7ml/kg in children): No Medications/Allergies Home Medications Medication Instructions Recorded Confirmed Last Taken Type vit no.95-ferrous 1 tab PO DAILY 09/18/21 12/01/21 11/30/21 History fumarate 28 mg-folic acid 800 mcg tablet ( Multivitamins) Allergies Allergy/AdvReac Type Severity Reaction Status Date / Time Influenza Virus Vaccines Allergy Severe swelling, Verified 12/01/21 07:34 rash Latex, Natural Rubber Allergy Severe redness, Verified 12/01/21 07:34 swelling, itching Current Medications Generic Name Dose Route Start Last Admin Trade Name Freq PRN Reason Stop Dose Admin Hydrocodone Bitart/Acetaminophen 1 - 2 tab 12/01/21 17:05 12/02/21 02:17 Hydrocodone-Acetaminophen 5-325 Mg Tablet PO 2 tab Q6H PRN Administration MODERATE TO SEVERE PAIN Benzocaine 1 spray 12/01/21 17:05 12/01/21 18:22 Benzocaine-Menthol 78 Gm Canister TOPICAL 1 can PRN PRN Administration PAIN Docusate Sodium 100 mg 12/01/21 18:00 12/02/21 10:14 Docusate Sodium 100 Mg Capsule PO 100 mg BID BARNEY Administration Ibuprofen 800 mg 12/01/21 21:00 12/02/21 10:13 Ibuprofen 800 Mg Tablet PO 800 mg TID BARNEY Administration Lanolin 1 applic 12/01/21 17:05 12/01/21 18:23 Lanolin Oint 7 Gm TOPICAL 1 tube PRN PRN Administration DRYNESS Multivit/Folic Acid/Iron 1 cap 12/02/21 09:00 12/02/21 10:14 Vitamin Capsule PO 1 cap DAILY BARNEY Administration PFSH Anesthesia Medical History No pertinent past medical history neg hx: hypertension, diabetes, thyroid, DVT/PE PCP: none Surgical History H/O dilation and curettage x1-- SAB H/O wisdom tooth extraction 2014 S/P cholecystectomy 2017 Family History Mother Diabetes Grandmother Breast cancer paternal, age onset 40's Father Diabetes Hypertension Hyperlipidemia Thyroid condition Grandfather Heart disease paternal Family/Other Uterine cancer maternal aunt, age onset 30's Ovarian cancer maternal aunt, age onset 30's Denies family history of Colon cancer Clotting disorder Anesthesia complication Bleeding disorder Stroke Female Reproductive History Date of last menstrual period: 01/16/21 : 10 Data Anesthesia : 12/02/21 04:35 Short CBC 12/01/21 12/02/21 Range/Units 07:45 04:35 WBC 8.4 9.2 (4.0-10.0) 10^3/uL Hgb 8.8 L 7.9 L (11.5-15.3) g/dL Hct 28.4 L 26.7 L (37.0-47.0) % MCV 76.5 L 79.7 L (81-99) fl Plt Count 190 157 (130-400) 10^3/cmm Neut % (Auto) 76.6 % Neut # (Auto) 6.42 (1.8-7.7) 10^3/uL Cardiac Studies: No Data to Display
[2021-12-02] MEDS: lactated ringers 1,000 ML 999 ML ×2 (16:09→17:20)
[2021-12-02] MEDS: famotidine 20 mg/2 mL INJ IVP (18:00)
--- NOTE | 2021-12-02 19:15 | P.OP_ITS ---
Operative Report Date of procedure: December 02, 2021 Pre-op diagnosis: Preop Diagnosis female desiring sterilization Post-op diagnosis: Status post minilaparotomy tubal ligation Procedure done: Status post minilaparotomy bilateral tubal ligation using a modified [place] technique Specimens removed/disposition: Bilateral fallopian tube segments with the right segment being tagged Pathology: Bilateral fallopian tube segments with the right segment being tagged. Surgeon: Tomas Taylor Estimated blood loss (mL): 5 Complications: None Procedure: The patient was brought back to the operating room where anesthesia was found to be adequate. 10 mL of 0.5% bupivacaine was then used to pre-anesthetize the area just inferior to the umbilicus. A #15 blade was then used to make a 3 cm transverse incision just inferior to the umbilicus. I then dissected down to the underlying subcutaneous tissue until arriving at the fascia. The fascia was then nicked with the scalpel. The fascial incision was extended manually. I identified the fundus of the uterus and followed it to the left fallopian tube. The fallopian tube was then followed to the fimbria. The tube was then ligated, cut, and cauterized in a modified [place] fashion using 0 chromic. The right fallopian tube was then identified and followed through to the fimbria. It was ligated, cut, and cauterized in similar fashion. The right fallopian tube was tagged. Both fallopian tubes had excellent hemostasis. The fascia was reapproximated using 0 Vicryl in running stitch. The subcutaneous tissue was carefully examined and no further bleeding was noted. The skin was then reapproximated using 4-0 Vicryl in a running subcuticular stitch. A sterile dressing was placed. All counts were correct x2. The patient was moved to the recovery room in stable condition.
--- NOTE | 2021-12-02 19:18 | PM.OBGYDC ---
Discharge Providers HEAD OF MEASUREMENT & INSIGHTS Date of Admission: 12/01/21 07:36 Date of Discharge: 12/02/21 Attending Provider at Admission: Tomas Taylor MD Attending Provider at Discharge: Tomas Taylor MD Primary Care Provider: Damien Loo MD Diagnoses at Discharge Discharge Diagnosis (1) Spontaneous vaginal delivery: Status: Acute (2) Sterilization consult: Status: Acute Reason for Visit Reason for Visit: ROM Hospital Course Hospital Course The patient presented to the hospital with spontaneous rupture of membranes. An epidural was placed. She did have a panic attack at the time of the epidural placement. Her symptoms resolved shortly after the epidural was placed. She progressed to complete and had an unremarkable delivery of a healthy appearing . Her course was also unremarkable. A bilateral tubal ligation was performed prior to discharge. Her bleeding was within normal limits during her hospital stay. Her pain was well controlled. She breast-fed well. Information Peripartum Data: Infant Delivery Method: Vaginal Physical Exam Narrative: The patient is alert. She appears comfortable. Her heart has a regular rate and rhythm with no murmurs appreciated. Lungs are clear to auscultation bilaterally. Her fundus is firm and below the umbilicus. Urinary Catheter Management: Welch: Cath Placed During This Visit: yes Urinary Catheter Date of Insertion: 12/01/21 Urinary Catheter Time of Insertion: 09:45 History History History 8 Term 3 Miscarriages/Ectopic 5 0 Living Children 3 Discharge Data Studies Completed and Pending Laboratory Results WBC 9.2 10^3/uL (4.0-10.0) 12/02/21 04:35 RBC 3.35 10^6/uL (4.1-5.3) L 12/02/21 04:35 Hgb 7.9 g/dL (11.5-15.3) L 12/02/21 04:35 Hct 26.7 % (37.0-47.0) L 12/02/21 04:35 MCV 79.7 fl (81-99) L 12/02/21 04:35 MCH 23.6 pg (28.0-34.0) L 12/02/21 04:35 MCHC 29.6 g/dL (30.0-36.0) L 12/02/21 04:35 RDW 14.6 % (12.1-15.1) 12/02/21 04:35 Plt Count 157 10^3/cmm (130-400) 12/02/21 04:35 MPV 11.7 fL (7.4-10.4) H 12/02/21 04:35 Neut % (Auto) 76.6 % 12/01/21 07:45 Lymph % (Auto) 17.1 % 12/01/21 07:45 [place] % (Auto) 5.3 % 12/01/21 07:45 Eos % (Auto) 0.2 % 12/01/21 07:45 Baso % (Auto) 0.2 % 12/01/21 07:45 Neut # (Auto) 6.42 10^3/uL (1.8-7.7) 12/01/21 07:45 Lymph # (Auto) 1.4 10^3/uL (0.8-4.8) 12/01/21 07:45 [place] # (Auto) 0.4 10^3/uL (0.2-0.9) 12/01/21 07:45 Eos # (Auto) 0.0 10^3/uL (0.0-0.8) 12/01/21 07:45 Baso # (Auto) 0.0 10^3/uL (0.0-0.1) 12/01/21 07:45 Nucleated RBC % (auto) 0 % 12/01/21 07:45 Nucleated RBCs # 0.0 /100WBC 12/01/21 07:45 Vitals Last Vital Signs Temp 98.1 F 12/02/21 17:00 Pulse 66 12/02/21 17:00 Resp 16 12/02/21 17:00 BP 96/77 12/02/21 17:00 Pulse Ox 97 12/02/21 17:00 Discharge Plan Discharge Patient Disposition: Home Condition: Stable Prescriptions: New ibuprofen 800 mg Tablet 800 mg PO TID Qty: 45 0RF hydrocodone-acetaminophen 5-325 mg Tablet 1 tab PO Q6H PRN (Reason: Moderate To Severe Pain) Qty: 10 0RF Continued PNV cmb#95-ferrous fumarate-FA [ Multivitamins] 28 mg iron- 800 mcg tablet 1 tab PO DAILY 0RF Discharge Orders: Discharge Order (Routine); Ordered 12/02/21 Ordered By: Tomas Taylor Referrals: Tomas Taylor MD [Physician] - 4-7 days (Please set up 6-week follow-up as well) Discharge Diet: Usual diet Discharge Activity: Limit activity as instructed Patient Instructions: Opioid Safety Discharge Attestations HEAD OF MEASUREMENT & INSIGHTS Time Spent in Discharge Care*: less than 30 min Specific Discharge Activities: Specific discharge activities: educating patient and educating and/or supporting family/caregiver Coding Level of Care Code Acute 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
--- NOTE | 2021-12-02 19:30 | PC.NURSE ---
This nurse handed the patients her prescription for hydrocodone so that he could go get it filled for her.
--- NOTE | 2021-12-02 20:01 | XRR_ITS ---
PROCEDURE INFORMATION: Exam: XR Abdomen Exam date and time: 12/02/2021 7:42 PM Age: 31 years old Clinical indication: Screening exam; Post surgical status; No final count done after c section; Additional info: No final count completed after procedure TECHNIQUE: Imaging protocol: XR of the abdomen. Views: Frontal supine view of the abdomen. 1 View. COMPARISON: CR Chest 1 [place] [id number] 05/06/2019 2:18 AM FINDINGS: Gastrointestinal tract: Normal. No bowel dilation. Organs: Cholecystectomy clips noted. Bones/joints: Unremarkable. Soft tissues: No radiopaque foreign body. XR/XR KUB portable [id number] IMPRESSION: No radiopaque foreign body.
--- NOTE | 2021-12-02 21:12 | ANE.PACU2 ---
Inpatient post-anesthesia follow up: Airway intact: Yes Vital signs: Temperature 98.1 F Pulse Rate 63 Respiratory Rate 16 Blood Pressure 117/72 Pulse Oximetry 100 Oxygen Delivery Me thod Room Air Oxygen Flow Rate Fraction of Inspir ed Oxygen Hydration adequate: Yes Nausea and vomiting: No Pain level: 4 Mental status: Baseline
== END 2021-12-02 23:02 | disposition home or self-care (01) | DRG 798 ==
LOC: OPOB 10:28 → OBGYN 10:28
PROVIDERS: Admitting Provider Family Medicine; PCP Family Medicine; Visit Provider Family Medicine
PROC: 0U570ZZ Destruction of Bilateral Fallopian Tubes, Open Approach (ICD-10-PCS; CPT 58605; principal; 2021-12-02 17:00)
DX: O69.9XX0 Labor and delivery complicated by cord complication, unspecified, not applicable or unspecified (principal); Z37.0 Single live birth; Z3A.38 38 weeks gestation of pregnancy
CPT/HCPCS: 12345; 36415; 51702; 59409; 74018; 83986; 85025; 85027; 88302; 99211; J2250; J2405; J2795; J3010; J3490; Q0162

== ENCOUNTER 2022-02-01 20:55 | Emergency (ER) | payer BC, MEDICAID, SELFPAY ==
[2022-02-01 21:03] VITALS: BP 111/78; PULSE 89; RESP 16; TEMP 36.8; O2SAT 99; BMI 31.1
--- NOTE | 2022-02-01 21:14 | XRR_ITS ---
PROCEDURE INFORMATION: Exam: XR Left Wrist Exam date and time: 02/01/2022 9:23 PM Age: 31 years old Clinical indication: Injury or trauma; Fall; Blunt trauma (contusions or hematomas); Wrist; Left; Additional info: Fall L wrist pain TECHNIQUE: Imaging protocol: XR Left wrist. Views: 3 or more views. COMPARISON: No relevant prior studies available. FINDINGS: Bones/joints: Normal. Soft tissues: Normal. XR/XR wrist LT min 3V* [id number] IMPRESSION: No acute findings.
[2022-02-01 22:06] VITALS: BP 93/68; PULSE 84; RESP 16; O2SAT 99
[2022-02-01] MEDS: oxyCODONE-APAP 5-325 mg Tablet 2 TAB PO (22:06)
[2022-02-01 22:45] VITALS: BP 115/74; PULSE 71; RESP 16; O2SAT 98
--- NOTE | 2022-02-01 23:36 | ED_ITS ---
HPI - Fall General: Chief Complaint: Fall Stated Complaint: fell and injured L wrist Time Seen by Provider: 02/01/22 21:09 History of Present Illness: 31-year-old female who fell on an outstretched hand this evening while walking. She sustained an injury to her left wrist. She complains of left wrist pain with some swelling. No other injury. MD complaint: fall Onset (ago): hour(s) Fall from: standing Fall witnessed: yes, by family Place fall occurred: street Loss of consciousness: None Context: tripped/slipped Location of injury - extremities: Left: forearm Associated symptoms-after fall: Denies abdominal pain, chest pain, confusion, difficulty walking, neck pain, numbness or short of breath Review of Systems Card: Denies: chest pain GI: Denies: abdominal pain Musc: Denies: neck pain Neuro: Denies: difficulty walking or confusion PFS ED PFSH: Medical History No pertinent past medical history neg hx: hypertension, diabetes, thyroid, DVT/PE PCP: none Surgical History H/O dilation and curettage x1-- SAB H/O wisdom tooth extraction 2015 S/P cholecystectomy 2017 Family History Mother Diabetes Grandmother Breast cancer paternal, age onset 40's Father Diabetes Hypertension Hyperlipidemia Thyroid condition Grandfather Heart disease paternal Family/Other Uterine cancer maternal aunt, age onset 30's Ovarian cancer maternal aunt, age onset 30's Denies family history of Colon cancer Clotting disorder Anesthesia complication Bleeding disorder Stroke Female Reproductive History: Date of last menstrual period: 01/16/21 Physical Exam Const: GENERAL APPEARANCE: cooperative HENMT: COMMON NORMALS: normocephalic and atraumatic HEAD & SCALP: normocephalic and atraumatic Eye: COMMON NORMALS: Equal, round and reactive pupils present and EOMs intact bilaterally PUPIL: Yes Equal, round and reactive pupils present Neck/C-Spine: COMMON NORMALS: full ROM GENERAL: Yes trachea midline Chest: CHEST: Yes Symmetrical chest wall rise Resp: COMMON NORMALS: normal respiratory effort and No use of accessory muscles Cardio: COMMON NORMALS: regular rate and regular rhythm RATE: regular rate RHYTHM: regular rhythm Extremity: NARRATIVE EXTREMITY EXAM: Exam the right upper extremity reveals tenderness to the radial and ulnar right wrist. Less tenderness to the forearm more proximally. Minimal elbow tenderness. There is no deformity. Sensation is intact distally. Capillary refill is normal Neuro: RADHA COMA SCALE: document GCS findings [place] coma scale eye opening: Spontaneous [place] coma scale verbal response: Orientated [place] coma scale motor response: Obey commands [place] coma scale total score: 15 Course Vital Signs: Vital signs: Vital Signs Temperature 98.3 F 02/01/22 21:03 Pulse Rate 71 02/01/22 22:45 Respiratory Rate 16 02/01/22 22:45 Blood Pressure 115/74 02/01/22 22:45 Pulse Oximetry 98 02/01/22 22:45 MDM - Fall Medical Decision Making X-rays are negative for fracture. She will go into a wrist splint, Velcro, and follow-up within 1 week with her primary. Repeat x-rays at that point if needed. Lab Data Radiology Impressions Wrist X-Ray 02/01/22 21:14 IMPRESSION: No acute findings. Discharge Plan Discharge Patient Disposition: Home Clinical Impression: Sprain and strain of left wrist Condition: Stable Prescriptions: Continued hydrocodone-acetaminophen 5-325 mg Tablet 1 tab PO Q6H PRN (Reason: Moderate To Severe Pain) Qty: 10 0RF No Action PNV cmb#95-ferrous fumarate-FA [ Multivitamins] 28 mg iron- 800 mcg tablet 1 tab PO DAILY 0RF ibuprofen 800 mg Tablet 800 mg PO TID Qty: 45 0RF Discharge Orders: Discharge ED (Routine); Ordered 02/01/22 Ordered By: Ziyda Palacio Referrals: Damien Loo MD [Primary Care Provider] - 4-7 days Patient Instructions: Wrist Injury (ED), Opioid Safety Activity Restrictions/Additional Instructions: See your doctor next week. Wear the brace until you are seen. If yeast distiller, repeat x-rays may be needed. Return for worsening pain despite treatment. Ice may help Coding Level of Care Code ED Turnaround Engineer for Filemon Negrete
== END 2022-02-01 22:45 | disposition home or self-care (01) ==
PROVIDERS: Emergency Provider Emergency Medicine; PCP Family Medicine
DX: S63.502A Unspecified sprain of left wrist, initial encounter (principal); S66.912A Strain of unspecified muscle, fascia and tendon at wrist and hand level, left hand, initial encounter; W01.0XXA Fall on same level from slipping, tripping and stumbling without subsequent striking against object, initial encounter
CPT/HCPCS: 73110; 99283

== ENCOUNTER 2022-08-22 02:26 | Emergency (ER) | payer BC, MEDICAID, SELFPAY ==
--- NOTE | 2022-08-22 02:30 | ECG_ITS ---
[facility] Test Date: 2022-08-22 Pat Name: Esperanza Moon Department: Room: Gender: Female Manager Of Development: : 1990 Requested By: Eagle Salgado Order Number: [id number] Jeri MD: Rivas Pelletier M.D. Measurements Intervals [place] Rate: 92 P: 32 WV: 125 QRS: 56 QRSD: 81 T: 23 QT: 333 QTc: 412 Interpretive Statements SINUS RHYTHM NONSPECIFIC T-WAVE ABNORMALITY Compared to ECG 05/06/2019 02:23:38 Sinus tachycardia no longer present Short [place] interval no longer present T-wave abnormality still present Electronically Signed On 08-22-2022 13:51:45 MATTRESS MAKER by Rivas Pelletier M.D. [id number] f
--- NOTE | 2022-08-22 02:34 | CTR_ITS ---
PROCEDURE INFORMATION: Exam: CT Head Without Contrast Exam date and time: 08/22/2022 2:43 AM Age: 32 years old Clinical indication: Stroke-like symptoms; Headache; Julio upper extremity and julio lower extremity weakness; Additional info: Multiple syncopal episodes. C/O severe B[place]O with weakness to all four extremities. Patient appears very lethargic. TECHNIQUE: Imaging protocol: Computed tomography of the head without contrast. Radiation optimization: All CT scans at this facility use at least one of these dose optimization techniques: automated exposure control; mA and/or kV adjustment per patient size (includes targeted exams where dose is matched to clinical indication); or iterative reconstruction. Other technique: STROKE PROTOCOL was implemented. COMPARISON: No relevant prior studies available. RADIATION DOSE METRICS: Total DLP (mGy-cm): 1022.18 FINDINGS: Brain: No cerebral/cerebellar infarct. No brain parenchymal or extra-axial hemorrhage. Cerebral ventricles: No ventriculomegaly. Paranasal sinuses: Paranasal sinuses are clear. No air-fluid level. Mastoid air cells: Visualized mastoid air cells are clear. Bones/joints: There is congenital incomplete fusion of the posterior arch of C1. No calvarial or skull base fracture. Soft tissues: Unremarkable. CT/CT head wo con* [id number] IMPRESSION: No acute infarct or hemorrhage. ASSESSMENT: ASPECTS ([place] Stroke Program Early CT Score) is 10.
[2022-08-22 02:35] VITALS: BP 114/85; PULSE 86; RESP 16; O2SAT 100
--- NOTE | 2022-08-22 02:41 | ED_ITS ---
HPI - Altered Mental Status General: Chief Complaint: Altered Mental Status Stated Complaint: headache, n/s, fainting Time Seen by Provider: 08/22/22 02:34 Source: patient and family Mode of arrival: ambulatory Limitations: no limitations History of Present Illness: 32-year-old female states that tonight she has been having a headache that is severe in nature along with some neck pain has been states that she has been in and out of consciousness having difficulty staying awake. She states to me she just feels extremely tired she states she feels weak in her extremities and having a hard time lifting both her arms and both her legs denies any fever no vomiting no diarrhea. Associated symptoms: Deny depression Review of Systems Const: Reports: fatigue and malaise Eyes: Denies: blurry vision or eye discomfort ENMT: Denies: throat pain or dental pain Card: Denies: chest pain Resp: Denies: dyspnea GI: Denies: abdominal pain, nausea, vomiting or diarrhea : Denies: dysuria Musc: Denies: neck pain or back pain Skin/Breast: Denies: rash Neuro: Reports: headache(s) and weakness in extremities Psych: Denies: depression Matti/Lymph: Denies: easy bruising All/Imm: Denies: urticaria PFSH ED PFSH: Medical History No pertinent past medical history neg hx: hypertension, diabetes, thyroid, DVT/PE PCP: none Surgical History H/O dilation and curettage x1-- SAB H/O wisdom tooth extraction 2014 S/P cholecystectomy 2017 Family History Mother Diabetes Grandmother Breast cancer paternal, age onset 40's Father Diabetes Hypertension Hyperlipidemia Thyroid condition Grandfather Heart disease paternal Family/Other Uterine cancer maternal aunt, age onset 30's Ovarian cancer maternal aunt, age onset 30's Denies family history of Colon cancer Clotting disorder Anesthesia complication Bleeding disorder Stroke Female Reproductive History: Date of last menstrual period: 01/16/21 Physical Exam Const: COMMON NORMALS: average body habitus and patient oriented x3 GENERAL APPEARANCE: cooperative HENMT: COMMON NORMALS: normocephalic and atraumatic HEAD & SCALP: normo cephalic and atraumatic Eye: COMMON NORMALS: Equal, round and reactive pupils present and conjunctivae normal CONJUNCTIVA: Yes conjunctivae normal PUPIL: Yes Equal, round and reactive pupils present Neck/C-Spine: COMMON NORMALS: supple and no meningeal signs Chest: COMMONS NORMALS: normal inspection of the chest Resp: COMMON NORMALS: normal respiratory effort and clear to auscultation bilaterally EFFORT & INSPECTION: Yes able to speak in complete sentences AUSCULTATION: clear to auscultation bilaterally Cardio: COMMON NORMALS: regular rate and regular rhythm RATE: regular rate RHYTHM: regular rhythm GI: COMMON NORMALS: Normal to inspection, nondistended, normoactive bowel sounds present, Soft to palpation and non-tender PALPATION: Yes Soft to palpation Extremity: COMMON NORMALS: normal to inspection Neuro: COMMON NORMALS: patient oriented x3 MENINGEAL SIGNS: Yes no meningeal signs CRANIAL NERVES: Yes CN normal except as noted OTHER: weakness to all extremities Psych: COMMON NORMALS: mental status grossly normal Skin: COMMON NORMALS: no rashes or lesions noted GENERAL SKIN EXAM: no rashes or lesions noted Procedures Lumbar Puncture Time Out Performed: Yes Patient Position: left lateral decubitus Skin Prep: Povidone-Iodine 1% Local Anesthetic: lidocaine 1% Amount of anesthesia used (mL): 5 Spinal Needle Gauge: 22G Interspace Used: L3-L4 Fluid Initially Obtained: clear Complications: none Course Vital Signs: Vital signs: Vital Signs Pulse Rate 95 08/22/22 04:00 Respiratory Rate 19 H 08/22/22 04:00 Blood Pressure 94/57 08/22/22 04:00 Pulse Oximetry 99 08/22/22 04:00 Oxygen Delivery Me thod 08/22/22 02:35 MDM - Altered Mental Status Medical Decision Making Patient presents here with a headache first arrived she had weakness she could have had a migraine with aura she does have a history of migraines her headache was not made worse with bright lights. Patient's afebrile here her head CT is normal I did do a lumbar puncture that was normal she is now feeling much improved she is amatory her strength back she has no signs of myasthenia gravis or subarachnoid hemorrhage she is stable for discharge she is to follow-up with PCP and return if worsening. Lab Data 08/22/22 02:35 08/22/22 02:[address] 08/22/22 02:34 IMPRESSION: No acute infarct or hemorrhage. ASSESSMENT: ASPECTS ([place] Stroke Program Early CT Score) is 10. Head/Neck CTA 08/22/22 02:44 IMPRESSION: No large vessel occlusion or stenosis. IMPRESSION: No vascular stenosis, occlusion or dissection. REFERENCES: NASCET CRITERIA. The degree of stenosis in the cervical segment of the internal carotid artery is based on NASCET criteria. Normal is no stenosis. Mild is less than 50% stenosis. Moderate is 50-69% stenosis. Severe is 70% to 99% stenosis. Total occlusion is no detectable patent lumen. Laboratory Results WBC 13.8 10^3/uL (4.0-10.0) H 08/22/22 02:35 RBC 4.94 10^6/uL (4.1-5.3) 08/22/22 02:35 Hgb 12.9 g/dL (11.5-15.3) 08/22/22 02:35 Hct 41.0 % (37.0-47.0) 08/22/22 02:35 MCV 83.0 fl (81-99) 08/22/22 02:35 MCH 26.1 pg (28.0-34.0) L 08/22/22 02:35 MCHC 31.5 g/dL (30.0-36.0) 08/22/22 02:35 RDW 14.4 % (12.1-15.1) 08/22/22 02:35 Plt Count 310 10^3/cmm (130-400) 08/22/22 02:35 MPV 10.2 fL (7.4-10.4) 08/22/22 02:35 Neut % (Auto) 67.9 % 08/22/22 02:35 Lymph % (Auto) 22.2 % 08/22/22 02:35 [place] % (Auto) 7.8 % 08/22/22 02:35 Eos % (Auto) 1.4 % 08/22/22 02:35 Baso % (Auto) 0.4 % 08/22/22 02:35 Neut # (Auto) 9.36 10^3/uL (1.8-7.7) H 08/22/22 02:35 Lymph # (Auto) 3.1 10^3/uL (0.8-4.8) 08/22/22 02:35 [place] # (Auto) 1.1 10^3/uL (0.2-0.9) H 08/22/22 02:35 Eos # (Auto) 0.2 10^3/uL (0.0-0.8) 08/22/22 02:35 Baso # (Auto) 0.1 10^3/uL (0.0-0.1) 08/22/22 02:35 Nucleated RBC % (auto) 0 % 08/22/22 02:35 Nucleated RBCs # 0.0 /100WBC 08/22/22 02:35 PT 12.60 SECONDS (12.1-14.9) 08/22/22 02:35 INR 0.92 (0.8-1.2) 08/22/22 02:35 Sodium 142 mmol/L (136-145) 08/22/22 02:35 Potassium 3.8 mmol/L (3.5-5.1) 08/22/22 02:35 Chloride 106 mmol/L (98-107) 08/22/22 02:35 Carbon Dioxide 27 mmol/L (22-29) 08/22/22 02:35 Anion Gap 12.8 (5-19) 08/22/22 02:35 BUN 13 mg/dL (6-20) 08/22/22 02:35 Creatinine 0.7 mg/dL (0.5-0.9) 08/22/22 02:35 GFR Calculation 98.3 mL/min (90-130) 08/22/22 02:35 Glucose 104 mg/dL (65-115) 08/22/22 02:35 Calculated Osmolality 294 mOsm/kg (285-295) 08/22/22 02:35 Calcium 10.0 mg/dL (8.5-10.5) 08/22/22 02:35 Total Bilirubin 0.2 mg/dL (0.15-1.2) 08/22/22 02:35 AST 24 U/L (0-32) 08/22/22 02:35 ALT 49 U/L (0-33) H 08/22/22 02:35 Alkaline Phosphatase 130 U/L (35-105) H 08/22/22 02:35 Total Protein 7.3 g/dL (6.6-8.7) 08/22/22 02:35 Albumin 4.4 g/dL (3.5-5.2) 08/22/22 02:35 Globulin 2.9 g/dL (1.3-4.6) 08/22/22 02:35 TSH 6.06 uIU/mL (0.27-4.20) H 08/22/22 02:35 HCG, Qual Negative (Negative) 08/22/22 04:14 CSF Appearance Clear (CLEAR) 08/22/22 03:35 CSF Color Colorless (COLORLESS) 08/22/22 03:35 CSF WBC 1 /uL (0-5) 08/22/22 03:35 CSF RBC 0 10^3/uL (0-0) 08/22/22 03:35 CSF Mononuclear # Auto 0.001 10^3/uL (50-90) L 08/22/22 03:35 CSF Mononuclear WBCs % 100 % (50-90) H 08/22/22 03:35 CSF Polynuclear WBCs # 0.000 10^3/uL (0-10) 08/22/22 03:35 CSF Polynuclear WBCs % 0 % (0-10) 08/22/22 03:35 CSF Glucose 55 mg/dL (40-70) 08/22/22 03:35 CSF Total Protein 22 mg/dL (15-45) 08/22/22 03:35 Urine Opiates Screen Negative ng/mL (Negative) 08/22/22 04:14 Ur Barbiturates Screen Negative ng/mL (Negative) 08/22/22 04:14 Ur Phencyclidine Scrn Negative ng/mL (Negative) 08/22/22 04:14 Ur Amphetamines Screen Negative ng/mL (Negative) 08/22/22 04:14 U Benzodiazepines Scrn Negative ng/mL (Negative) 08/22/22 04:14 Urine Cocaine Screen Negative ng/mL (Negative) 08/22/22 04:14 U Marijuana (THC) Screen Negative ng/mL (Negative) 08/22/22 04:14 Ethyl Alcohol < 10 mg/dL (0-10) 08/22/22 02:35 EKG Data EKG 1: I personally reviewed and interpreted this EKG as follows: EKG interpretation date: 08/22/22 EKG interpretation time: 02:36 Interpretation: nsr hr [address] or t wave abnormalities qrs 81 qtc 382 Discharge Plan Discharge Patient Disposition: Home Clinical Impression: Headache, Weakness Condition: Stable Prescriptions: New meclizine 25 mg tablet 25 mg PO BID PRN (Reason: dizziness) Qty: 14 0RF No Action PNV [id number]-FA [ Multivitamins] 28 mg iron- 800 mcg tablet 1 tab PO DAILY ibuprofen 800 mg Tablet 800 mg PO TID Qty: 45 0RF hydrocodone-acetaminophen 5-325 mg Tablet 1 tab PO Q6H PRN (Reason: Moderate To Severe Pain) Qty: 10 0RF Discharge Orders: Discharge ED (Routine); Ordered 08/22/22 Ordered By: Eagle Salgado Referrals: Damien Loo MD [Primary Care Provider] - 1-3 days Discharge Diet: Advance as tolerated Discharge Activity: Resume usual activity Patient Instructions: Weakness (ED), General Headache (ED) Coding Level of Care Code ED Purchase Analyst for Chg Fwd Exam Comprehensive
[2022-08-22 02:43] LABS: Basophils # 0.1 10^3/uL (0.0-0.1); Basophils % 0.4 %; Eosinophils # 0.2 10^3/uL (0.0-0.8); Eosinophils % 1.4 %; Hemoglobin 12.9 g/dL (11.5-15.3); Lymphocytes # 3.1 10^3/uL (0.8-4.8); Lymphocytes % 22.2 %; Mean Corpuscular HGB Conc 31.5 g/dL (30.0-36.0); Mean Corpuscular Hemoglobin 26.1 pg (28.0-34.0); Mean Platelet Volume 10.2 fL (7.4-10.4); Monocytes # 1.1 10^3/uL (0.2-0.9); Monocytes % 7.8 %; Neutrophils # 9.36 10^3/uL (1.8-7.7); Neutrophils % 67.9 %; Nucleated Red Blood Cells % 0 %; Platelet Count 310 10^3/cmm (130-400); Red Blood Count 4.94 10^6/uL (4.1-5.3); Red Cell Distribution Width 14.4 % (12.1-15.1); White Blood Count 13.8 10^3/uL (4.0-10.0)
--- NOTE | 2022-08-22 02:44 | CTR_ITS ---
PROCEDURE INFORMATION: Exam: CTA Head With Contrast, Arteriography Exam date and time: 08/22/2022 2:48 AM Age: 32 years old Clinical indication: Stroke-like symptoms; Drowsines/somnolence and syncope/collapse; Julio upper extremity and julio lower extremity weakness; Additional info: [facility] TECHNIQUE: Imaging protocol: Computed tomographic angiography of the head with contrast. Exam focused on the arteries. 3D rendering (Not supervised by radiologist): MIP and/or 3D reconstructed images were created by the technologist. Radiation optimization: All CT scans at this facility use at least one of these dose optimization techniques: automated exposure control; mA and/or kV adjustment per patient size (includes targeted exams where dose is matched to clinical indication); or iterative reconstruction. Contrast material: OMNI 350; Contrast volume: 100 ml; Contrast route: INTRAVENOUS (IV); COMPARISON: CT head wo con* [id number] 08/22/2022 2:43 AM RADIATION DOSE METRICS: Total DLP (mGy-cm): 470.02 FINDINGS: ANTERIOR CIRCULATION: Right internal carotid artery: Intracranial segment is patent with no significant stenosis. No aneurysm. Right middle cerebral artery: No occlusion or significant stenosis. No aneurysm. Right anterior cerebral artery: No occlusion or significant stenosis. No aneurysm. Left internal carotid artery: Intracranial segment is patent with no significant stenosis. No aneurysm. Left middle cerebral artery: No occlusion or significant stenosis. No aneurysm. Left anterior cerebral artery: No occlusion or significant stenosis. No aneurysm. POSTERIOR CIRCULATION: Right vertebral artery: No occlusion or significant stenosis. No aneurysm. Left vertebral artery: No occlusion or significant stenosis. No aneurysm. Basilar artery: No occlusion or significant stenosis. No aneurysm. Right posterior cerebral artery: No occlusion or significant stenosis. No aneurysm. Left posterior cerebral artery: No occlusion or significant stenosis. No aneurysm. Brain: No definite mass, mass effect, or midline shift. Cerebral ventricles: No ventriculomegaly. Bones/joints: Unremarkable. No acute fracture. Soft tissues: Unremarkable. PROCEDURE INFORMATION: Exam: CTA Neck With Contrast Exam date and time: 08/22/2022 2:48 AM Age: 32 years old Clinical indication: Stroke-like symptoms; Drowsines/somnolence and syncope/collapse; Julio upper extremity and julio lower extremity weakness; Additional info: [place] TECHNIQUE: Imaging protocol: Computed tomographic angiography of the neck with contrast. 3D rendering (Not supervised by radiologist): MIP and/or 3D reconstructed images were created by the technologist. Radiation optimization: All CT scans at this facility use at least one of these dose optimization techniques: automated exposure control; mA and/or kV adjustment per patient size (includes targeted exams where dose is matched to clinical indication); or iterative reconstruction. Contrast material: OMNI 350; Contrast volume: 100 ml; Contrast route: INTRAVENOUS (IV); COMPARISON: CT angio chest PE protcl [id number] 05/11/2019 10:41 AM RADIATION DOSE METRICS: Total DLP (mGy-cm): 470.02 FINDINGS: Right common carotid artery: No stenosis. No dissection or occlusion. Right internal carotid artery: No stenosis of the extracranial segment. No dissection or occlusion. Right external carotid artery: No occlusion or stenosis of the origin. Left common carotid artery: No stenosis. No dissection or occlusion. Left internal carotid artery: No stenosis of the extracranial segment. No dissection or occlusion. Left external carotid artery: No occlusion or stenosis of the origin. Right vertebral artery: No stenosis. No dissection or occlusion. Left vertebral artery: No stenosis. No dissection or occlusion. Soft tissues: Normal. No significant soft tissue swelling. Bones/joints: No acute fracture. Other findings: There is bovine aortic arch morphology. CT/CT angio headneck* [id number] IMPRESSION: No large vessel occlusion or stenosis. IMPRESSION: No vascular stenosis, occlusion or dissection. REFERENCES: NASCET CRITERIA. The degree of stenosis in the cervical segment of the internal carotid artery is based on NASCET criteria. Normal is no stenosis. Mild is less than 50% stenosis. Moderate is 50-69% stenosis. Severe is 70% to 99% stenosis. Total occlusion is no detectable patent lumen.
[2022-08-22 02:58] LABS: INR 0.92 (0.8-1.2)
[2022-08-22] MEDS: diphenhydrAMINE 50 mg/mL SDV 1mL IVP (02:58)
[2022-08-22] MEDS: sodium chloride 0.9% 1,000 ML 999 ML IV (02:58)
[2022-08-22] MEDS: metoclopramide 5 mg/mL SDV 2 mL 10 MG IVP (02:59)
[2022-08-22] MEDS: iohexol 350 mg/mL 500 mL Btl (per mL) IV (03:00)
[2022-08-22 03:17] LABS: Alanine Aminotransferase 49 U/L (0-33); Albumin Level 4.4 g/dL (3.5-5.2); Alkaline Phosphatase 130 U/L (35-105); Anion Gap 12.8 (5-19); Aspartate Amino Transferase 24 U/L (0-32); Blood Urea Nitrogen 13 mg/dL (6-20); Carbon Dioxide 27 mmol/L (22-29); Chloride 106 mmol/L (98-107); Globulin 2.9 g/dL (1.3-4.6); Glomerular Filtration Rate 98.3 mL/min (90-130); Glucose 104 mg/dL (65-115); Osmolality Calculated 294 mOsm/kg (285-295); Potassium 3.8 mmol/L (3.5-5.1); Sodium 142 mmol/L (136-145); Thyroid Stimulating Hormone 6.06 uIU/mL (0.27-4.20); Total Bilirubin 0.2 mg/dL (0.15-1.2); Total Protein 7.3 g/dL (6.6-8.7)
[2022-08-22] MEDS: midazolam 1 mg/mL INJ 2 mL 2 MG IVP (03:22)
[2022-08-22 03:26] LABS: Alcohol Level < 10 mg/dL (0-10)
[2022-08-22] MEDS: lidocaine 1% INJ 20 mL MDV (mL) INJECTION (03:32)
[2022-08-22 03:33] VITALS: BP 109/74; PULSE 99; RESP 19; O2SAT 100
--- NOTE | 2022-08-22 03:54 | PC.NURSE ---
Lumbar puncture performed by Dr Salgado. Patient tolerated well. Specimens sent to lab.
[2022-08-22 03:57] LABS: CSF Mononuclear # 0.001 10^3/uL (50-90); Mononuclear WBC CSF % 100 % (50-90); Polynuclear WBC CSF % 0 % (0-10); Red Blood Cell CSF 0 10^3/uL (0-0); White Blood Cell CSF 1 /uL (0-5)
[2022-08-22 03:59] LABS: Cyto Order Verification Order Verified
[2022-08-22 04:00] VITALS: BP 94/57; PULSE 95; RESP 19; O2SAT 99
[2022-08-22 04:01] LABS: Appearance CSF CLEAR (CLEAR); Color CSF COLORLESS (COLORLESS)
[2022-08-22 04:11] LABS: Glucose CSF 55 mg/dL (40-70)
[2022-08-22 04:12] LABS: Total Protein CSF 22 mg/dL (15-45)
[2022-08-22 04:28] LABS: HCG Qualitative Urine. Negative (Negative)
[2022-08-22 04:30] LABS: Amphetamines Screen Urine Negative (Negative); Barbiturates Screen Urine Negative (Negative); Benzodiazepines Screen Urine Negative (Negative); Cocaine Screen Urine Negative (Negative); Opiate Screen Urine Negative (Negative); PCP Screen Urine Negative (Negative); THC Screen Urine Negative (Negative)
--- NOTE | 2022-08-22 04:31 | PC.NURSE ---
patient ambulated to bathroom with assist x 1 with a steady gait.
[2022-08-22] MEDS: meclizine 25 mg tablet PO (04:37)
[2022-08-22 04:46] VITALS: BP 102/74; PULSE 93; RESP 16; O2SAT 96
--- NOTE | 2022-08-22 09:26 | PC.NURSE ---
NOTIFIED CHARGE NURSE RODRI OF GRAM POSITIVE RODS ON PT CSF. SHE VERBALIZED UNDERSTANDING AND THAT SHE WOULD INFORM PHYSICIAN.
--- NOTE | 2022-08-22 11:07 | PC.NURSE ---
Spoke with Dr. Parmar regarding pt CSF lab results, requested pt to return to ER. Called pt and spoke with Esperanza regarding return to ER. Esperanza states she needs to find a campground manager and will come back.
[2022-08-28 00:19] LABS: VDRL on CSF NON-REACTIVE
== END 2022-08-22 04:45 | disposition home or self-care (01) ==
PROVIDERS: Emergency Provider Emergency Medicine; PCP Family Medicine
DX: R51.9 Headache, unspecified (principal); R53.1 Weakness
CPT/HCPCS: 62270; 70450; 70496; 70498; 80053; 80306; 80307; 80503; 81025; 82945; 84157; 84443; 85025; 85610; 86592; 87070; 87075; 87205; 89050; 93005; 96361; 96374; 96375; 99285; J1200; J2250; J2765; J7030; J8597; Q9967

== ENCOUNTER 2022-08-22 13:12 | Inpatient (IN) | payer BC, SELFPAY ==
[2022-08-22] VITALS (8 sets, daily range): BP systolic 101–147; BP diastolic 64–90; PULSE 72–90; RESP 14–18; TEMP 36.5–37.1; O2SAT 95–99; BMI 32.9; BMI 35.4
--- NOTE | 2022-08-22 14:01 | ED_ITS ---
HPI - Recheck/Abnormal Lab/Rx General: Chief Complaint: Recheck/Abnormal Lab/Rx Stated Complaint: abnormal labs Time Seen by Provider: 08/22/22 13:40 History of Present Illness: 32 yo f was seen last night/early this morning for headache and AMS. She had an LP. The gram stain came back with FEW GRAM POSITIVE RODS . Patient returns to ER after being notified of results. Please see Dr Guillermo's note from earlier. The headache was sudden onset around 2pm yesterday. No f/c, trauma, rashes. No chronic headaches. Review of Systems General: Reports: 10 or more systems reviewed and unremarkable except in HPI and below Const: Reports: fatigue; Denies: fever(s), chills or body aches Eyes: Denies: change in vision ENMT: Denies: throat pain Card: Denies: chest pain, edema or syncope Resp: Denies: dyspnea or productive cough GI: Denies: abdominal pain, nausea, vomiting or diarrhea : Denies: flank pain, dysuria or urinary frequency Musc: Denies: neck pain, back pain, extremity pain or extremity swelling Skin/Breast: Denies: rash or erythema Neuro: Reports: headache(s) and confusion; Denies: numbness in extremities, weakness in extremities, lack of coordination, difficulty walking or involuntary movements PFSH ED PFSH: Medical History No pertinent past medical history neg hx: hypertension, diabetes, thyroid, DVT/PE PCP: none Surgical History H/O dilation and curettage x1-- SAB H/O wisdom tooth extraction 2015 S/P cholecystectomy 2017 Family History Mother Diabetes Grandmother Breast cancer paternal, age onset 40's Father Diabetes Hypertension Hyperlipidemia Thyroid condition Grandfather Heart disease paternal Family/Other Uterine cancer maternal aunt, age onset 30's Ovarian cancer maternal aunt, age onset 30's Denies family history of Colon cancer Clotting disorder Anesthesia complication Bleeding disorder Stroke Social History Smoking and tobacco status: never smoked Alcohol intake: never Female Reproductive History: Date of last menstrual period: 01/16/21 Physical Exam Const: COMMON NORMALS: no limitations, alert and well nourished EXAM LIMITATIONS: no altered mental status HENMT: COMMON NORMALS: normocephalic, atraumatic and external ears normal HEAD & SCALP: normocephalic and atraumatic EXTERNAL EAR: Yes external ears normal MOUTH: no muffled voice Resp: COMMON NORMALS: normal respiratory effort and No use of accessory muscles Extremity: COMMON NORMALS: normal to inspection Neuro: COMMON NORMALS: moves all extremities, no focal motor deficits and no sensory deficits noted SENSORIUM/ORIENTATION: Yes alert SPEECH: speech normal Psych: COMMON NORMALS: mental status grossly normal, Normal thought process present, cooperative, normal affect and speech normal SPEECH: Yes normal speech THOUGHT PROCESS: Normal thought process present Skin: COMMON NORMALS: no rashes or lesions noted, turgor normal and no jaundice GENERAL SKIN EXAM: no rashes or lesions noted and turgor normal Course Vital Signs: Vital signs: Vital Signs Temperature 98.5 F 08/26/22 14:12 Pulse Rate 72 08/26/22 14:12 Respiratory Rate 16 08/26/22 14:12 Blood Pressure 109/78 08/26/22 14:12 Pulse Oximetry 96 08/26/22 14:12 Oxygen Delivery Me thod 08/26/22 12:00 MDM - Recheck/Abnormal Lab/Rx Medical Decision Making Patient with positive gram stain from CSF. She also has headache. See note from Dr Guillermo. Patient will be admitted to hospitalist to help sort out whether this is true bacterial meningitis or contaminant. Lab Data 08/25/22 05:20 08/25/22 05:20 Radiology Impressions Chest X-Ray 08/22/22 14:32 IMPRESSION: No obvious acute consolidation. Suboptimal lung base assessment. Followup including lateral view may be obtained if clinically indicated. Head MRI 08/22/22 15:40 IMPRESSION: Exam is somewhat limited due to motion artifact. Fast imaging was performed. 1. No evidence of restricted diffusion to suggest acute ischemia. 2. No suspicious intracranial signal abnormalities considering motion artifact. 3. No hemosiderin on susceptibly weighted images. 4. No hydrocephalus or mass effect. 5. No other suspicious findings. Laboratory Results WBC 7.9 10^3/uL (4.0-10.0) 08/22/22 14:55 RBC 4.66 10^6/uL (4.1-5.3) 08/22/22 14:55 Hgb 12.0 g/dL (11.5-15.3) 08/22/22 14:55 Hct 38.8 % (37.0-47.0) 08/22/22 14:55 MCV 83.3 fl (81-99) 08/22/22 14:55 MCH 25.8 pg (28.0-34.0) L 08/22/22 14:55 MCHC 30.9 g/dL (30.0-36.0) 08/22/22 14:55 RDW 14.4 % (12.1-15.1) 08/22/22 14:55 Plt Count 303 10^3/cmm (130-400) 08/22/22 14:55 MPV 10.0 fL (7.4-10.4) 08/22/22 14:55 Neut % (Auto) 58.8 % 08/22/22 14:55 Lymph % (Auto) 31.8 % 08/22/22 14:55 [place] % (Auto) 6.9 % 08/22/22 14:55 Eos % (Auto) 1.6 % 08/22/22 14:55 Baso % (Auto) 0.5 % 08/22/22 14:55 Neut # (Auto) 4.66 10^3/uL (1.8-7.7) 08/22/22 14:55 Lymph # (Auto) 2.5 10^3/uL (0.8-4.8) 08/22/22 14:55 [place] # (Auto) 0.6 10^3/uL (0.2-0.9) 08/22/22 14:55 Eos # (Auto) 0.1 10^3/uL (0.0-0.8) 08/22/22 14:55 Baso # (Auto) 0.0 10^3/uL (0.0-0.1) 08/22/22 14:55 Nucleated RBC % (auto) 0 % 08/22/22 14:55 Nucleated RBCs # 0.0 /100WBC 08/22/22 14:55 ESR 5 mm/hr (0-15) 08/22/22 14:55 Sodium 141 mmol/L (136-145) 08/22/22 14:55 Potassium 3.9 mmol/L (3.5-5.1) 08/22/22 14:55 Chloride 106 mmol/L (98-107) 08/22/22 14:55 Carbon Dioxide 26 mmol/L (22-29) 08/22/22 14:55 Anion Gap 12.9 (5-19) 08/22/22 14:55 BUN 8 mg/dL (6-20) 08/22/22 14:55 Creatinine 0.7 mg/dL (0.5-0.9) 08/22/22 14:55 GFR Calculation 98.3 mL/min (90-130) 08/22/22 14:55 Glucose 88 mg/dL (65-115) 08/22/22 14:55 Calculated Osmolality 290 mOsm/kg (285-295) 08/22/22 14:55 Calcium 9.4 mg/dL (8.5-10.5) 08/22/22 14:55 Total Bilirubin 0.4 mg/dL (0.15-1.2) 08/22/22 14:55 AST 27 U/L (0-32) 08/22/22 14:55 ALT 49 U/L (0-33) H 08/22/22 14:55 Alkaline Phosphatase 131 U/L (35-105) H 08/22/22 14:55 C-Reactive Protein 13.0 mg/L (0.0-4.9) H 08/22/22 14:55 Total Protein 7.2 g/dL (6.6-8.7) 08/22/22 14:55 Albumin 4.3 g/dL (3.5-5.2) 08/22/22 14:55 Globulin 2.9 g/dL (1.3-4.6) 08/22/22 14:55 Procalcitonin 0.02 ng/mL (0-0.5) 08/22/22 14:55 Urine Color Yellow (Yellow) 08/22/22 15:50 Urine Appearance Clear (CLEAR) 08/22/22 15:50 Urine pH 5 (5-7) 08/22/22 15:50 Ur Specific [place] 1.015 (1.005-1.030) 08/22/22 15:50 Urine Protein Neg (Negative) 08/22/22 15:50 Urine Glucose (UA) Norm (Normal) 08/22/22 15:50 Urine Ketones Negative (Negative) 08/22/22 15:50 Urine Blood Neg (Negative) 08/22/22 15:50 Urine Nitrate Negative (Negative) 08/22/22 15:50 Urine Bilirubin Neg (Negative) 08/22/22 15:50 Urine Urobilinogen Norm mg/dL (Negative) 08/22/22 15:50 Ur Leukocyte Esterase Negative (Negative) 08/22/22 15:50 CSF Lyme IgG (Immblot) No bands detected 08/22/22 16:55 CSF Lyme IgM (Immblot) No bands detected 08/22/22 16:55 Nasal Influ A H1 2009 PCR Cancelled 08/22/22 14:55 RPR Nonreactive (Nonreactive) 08/22/22 14:55 Adenovirus (PCR) Cancelled 08/22/22 14:55 Lyme Ab (Western Blot) <0.90 index 08/22/22 16:55 Lyme IgG Bands Present Not Reportable 08/22/22 16:55 Lyme IgM Bands Present Not Reportable 08/22/22 16:55 C. pneumoniae DNA (PCR) Cancelled 08/22/22 14:55 Coronavirus 229E (PCR) Cancelled 08/22/22 14:55 E. chaffeensis IgG Ab <1:64 08/22/22 16:55 E. chaffeensis IgM Ab <1:20 08/22/22 16:55 E. chaffeensis Interp See note 08/22/22 16:55 E. chaffeensis Comment Not Reportable 08/22/22 16:55 F. tularensis Ab TNP 08/22/22 16:55 Hepatitis A IgM Ab Non-reactive (Nonreactive) 08/22/22 14:55 Hep Bs Antigen Non-reactive (Nonreactive) 08/22/22 14:55 Hep B Core IgM Ab Non-reactive (Nonreactive) 08/22/22 14:55 Hepatitis C Antibody Non-reactive (Nonreactive) 08/22/22 14:55 Herpes Simplex Source Cerebrospinal fluid 08/22/22 16:55 HIV 1&2 Ab & HIV 1 Ag Non-reactive (Non-Reactiv) 08/22/22 14:55 HIV 1&2 Antibody Non-reactive (Non-Reactiv) 08/22/22 14:55 Human Metapneumovir PCR Cancelled 08/22/22 14:55 Influenza A (H1) PCR Cancelled 08/22/22 14:55 Influenza A (H3) PCR Cancelled 08/22/22 14:55 Influenza Type A (PCR) Cancelled 08/22/22 14:55 Influenza Type B (PCR) Cancelled 08/22/22 14:55 M. pneumoniae (PCR) Cancelled 08/22/22 14:55 Parainfluenza 1 (PCR) Cancelled 08/22/22 14:55 Parainfluenza 2 (PCR) Cancelled 08/22/22 14:55 Parainfluenza 3 (PCR) Cancelled 08/22/22 14:55 Parainfluenza 4 (PCR) Cancelled 08/22/22 14:55 RSV Type A (PCR) Cancelled 08/22/22 14:55 RSV Type B (PCR) Cancelled 08/22/22 14:55 Entero/Rhino (PCR) Cancelled 08/22/22 14:55 Rickettsia IgG Ab Not detected 08/22/22 16:55 Rickettsia IgM Ab Not detected 08/22/22 16:55 SARS-CoV-2 (PCR) Cancelled 08/22/22 14:55 HSV 1 DNA Not detected 08/22/22 16:55 HSV 2 DNA Not detected 08/22/22 16:55 Discharge Plan Discharge Patient Disposition: Admitted As Inpatient Admit Provider: Aquiles Darden Clinical Impression: Abnormal CSF microbiological findings Condition: Stable Coding Level of Care Code ED Educational Director for Binag Penelope
--- NOTE | 2022-08-22 14:32 | XRR_ITS ---
PROCEDURE INFORMATION: Exam: XR Chest Exam date and time: 08/22/2022 2:40 PM Age: 32 years old Clinical indication: Other: AMS TECHNIQUE: Imaging protocol: Radiologic exam of the chest. Views: 1 view. COMPARISON: CR XR chest 1V [id number] 05/06/2019 2:18 AM FINDINGS: Lungs: The lung bases are suboptimally assessed due to technique however the upper lungs are clear of focal consolidation. Pleural spaces: Unremarkable. No pleural effusion. No pneumothorax. Heart/Mediastinum: Cardiac silhouette appears normal in size. No obvious vascular congestion. Bones/joints: No acute osseous findings. Other findings: Single view was submitted. XR/XR chest 1V portable [id number] IMPRESSION: No obvious acute consolidation. Suboptimal lung base assessment. Followup including lateral view may be obtained if clinically indicated.
--- NOTE | 2022-08-22 14:32 | PC.PHAR ---
pts states the pt was on paxil 20mg daily states 20mg worked great but was increased to 40mg daily-pts states the pt tries to take the paxil 40mg hs but states sometimes she misses doses ext med history shows last filled 07/04/22 30d/s pts states the pt went ahead and took a paxil 40mg tab this am 08/22/22-rx written 08/22/22 for meclizine 25mg bid prn pts states havent filled rx yet-notes are made in the pharmacy comments
[2022-08-22 15:17] LABS: Basophils % 0.5 %; Eosinophils # 0.1 10^3/uL (0.0-0.8); Eosinophils % 1.6 %; Hematocrit 38.8 % (37.0-47.0); Lymphocytes # 2.5 10^3/uL (0.8-4.8); Lymphocytes % 31.8 %; Mean Corpuscular HGB Conc 30.9 g/dL (30.0-36.0); Mean Corpuscular Hemoglobin 25.8 pg (28.0-34.0); Mean Corpuscular Volume 83.3 fl (81-99); Monocytes # 0.6 10^3/uL (0.2-0.9); Monocytes % 6.9 %; Neutrophils # 4.66 10^3/uL (1.8-7.7); Neutrophils % 58.8 %; Nucleated Red Blood Cells % 0 %; Platelet Count 303 10^3/cmm (130-400); Red Blood Count 4.66 10^6/uL (4.1-5.3); Red Cell Distribution Width 14.4 % (12.1-15.1); White Blood Count 7.9 10^3/uL (4.0-10.0)
[2022-08-22 15:23] LABS: Erythrocyte Sedimentation Rate 5 mm/hr (0-15)
[2022-08-22] MEDS: cefepime 2,000 MG in sodium chloride 0.9% (plus) 50 ML 100 MG IV (15:24)
[2022-08-22 15:37] LABS: Alanine Aminotransferase 49 U/L (0-33); Albumin Level 4.3 g/dL (3.5-5.2); Alkaline Phosphatase 131 U/L (35-105); Anion Gap 12.9 (5-19); Aspartate Amino Transferase 27 U/L (0-32); Blood Urea Nitrogen 8 mg/dL (6-20); Calcium 9.4 mg/dL (8.5-10.5); Carbon Dioxide 26 mmol/L (22-29); Chloride 106 mmol/L (98-107); Globulin 2.9 g/dL (1.3-4.6); Glomerular Filtration Rate 98.3 mL/min (90-130); Glucose 88 mg/dL (65-115); Osmolality Calculated 290 mOsm/kg (285-295); Potassium 3.9 mmol/L (3.5-5.1); Sodium 141 mmol/L (136-145); Total Bilirubin 0.4 mg/dL (0.15-1.2); Total Protein 7.2 g/dL (6.6-8.7)
[2022-08-22] MEDS: HYDROmorphone 1 mg/mL INJ 1 mL 0.5 MG IVP (15:38)
[2022-08-22] MEDS: vancomycin 1,250 MG/250 ML PIGGYBACK 250 MG IV ×2 (15:38→23:19)
--- NOTE | 2022-08-22 15:40 | MR_ITS ---
WS: [id number] MRI HEAD WITHOUT CONTRAST TECHNIQUE: Sagittal T1, T2 axial, T2 axial FLAIR, axial and coronal T1 images, axial susceptibility w eighted imaging, axial diffusion weighted images, and coronal T2 images were obtained. CLINICAL INFORMATION: headache COMPARISON: CTA August 22, 2022 FINDINGS: Some images degraded by patient motion. Fast imaging was performed. No evidence of restricted diffusion to suggest acute ischemia. Ventricular system and basal cisterns are patent. No suspicious intracranial signal abnormalities considering motion artifact. Normal poste rior fossa. Normal vascular flow voids at the skull base. No extra-axial fluid collections. No eviden ce of mass or mass effect. Paranasal sinuses and mastoid air cells are well aerated. Normal posterior nasopharynx. Normal parapharyngeal fat. No hemosiderin on the susceptibly weighted i mages. Normal optic chiasm and pituitary infundibulum. Temporal lobes and hippocampal formations are normal in appearance. MR/MR head wo con* [id number] IMPRESSION: Exam is somewhat limited due to motion artifact. Fast imaging was p erformed. 1. No evidence of restricted diffusion to suggest acute ischemia. 2. No suspicious intracranial signal abnormalities considering motion artifact . 3. No hemosiderin on susceptibly weighted images. 4. No hydrocephalus or mass effect. 5. No other suspicious findings.
[2022-08-22 15:44] LABS: Procalcitonin 0.02 ng/mL (0-0.5)
--- NOTE | 2022-08-22 15:50 | PM.HP ---
Providers/Chief Complaint Primary Care Provider: Damien Loo MD Chief Complaint: abnormal labs History of Present Illness Esperanza Moon is a 32 year old female with no significant past medical history who presents to [facility] due to headache, altered mental status. Patient tells me that yesterday, at roughly 2 PM, she was doing some housework, when she had a sudden onset of headache as she described the worst headache of her life, dizziness, feeling unwell, grogginess, she called her who had a family member come by and sit with her until he came at 6 PM. She tells her that this episode only lasted a few minutes, after that she just felt groggy felt unwell. Was able to carry out on the evening, at roughly 1 AM she woke up to use the bathroom, when she sat down her was there and she slumped over became nonresponsive. She was breathing, he slowly pulled her to the floor, and was able to arouse her, no facial droop no slurring of words, no seizure-like episodes. She is reporting grogginess and weakness and weakness so this prompted them to bring her to the emergency room. She tells me she does not remember this at all, she had an ER evaluation, lumbar puncture which was unrevealing, blood work that was unrevealing and she was sent home. She tells me that when she got home she got home at roughly 6 she is able to send her children to school, but throughout the day she felt groggy continues to have a severe headache, radiating to her back, now she is having neck pain she tells me that the area of the lumbar puncture is also hurting her back and her spine she feels stiff all over. She denies any fevers, no chills, no known exposures, no known exposure to animals, no tick bites, no exposure to sheep, she does tell me that there is been a lot of stress in the house, recently their 8-month-old fell off the bed and suffered a skull fracture and CPS has been involved. She also had another child who developed a significant cellulitis after tonsillectomy requiring over 2-month hospitalization, she tells me she did spend a long time in the hospital in June with her child. She did have an epidural, but this was over 6 months ago, Review of Systems Const: Denies: fever(s) Eyes: Denies: change in vision Card: Denies: chest pain Resp: Denies: dyspnea GI: Denies: abdominal pain : Denies: flank pain Skin/Breast: Denies: rash Neuro: Reports: headache(s) Medications/Allergies Home Medications Medication Instructions Recorded Confirmed Last Taken Type vit no.95-ferrous 1 tab PO DAILY 09/18/21 08/22/22 11/30/21 History fumarate 28 mg-folic acid 800 mcg tablet ( Multivitamins) acetaminophen 500 mg tablet 1,000 mg PO Q6H PRN Pain 08/22/22 08/22/22 08/15/22 History ibuprofen 800 mg tablet 800 mg PO TID PRN Pain 08/22/22 08/22/22 08/15/22 History meclizine 25 mg tablet 25 mg PO BID PRN dizziness #14 tabs 08/22/22 08/22/22 Unknown Rx paroxetine HCl 40 mg tablet 40 mg PO BEDTIME 08/22/22 08/22/22 08/22/22 History went ahead and took Allergies Allergy/AdvReac Type Severity Reaction Status Date / Time Influenza Virus Vaccines Allergy Severe swelling, Verified 12/01/21 07:34 rash Latex, Natural Rubber Allergy Severe redness, Verified 12/01/21 07:34 swelling, itching PFSH Acute PFSH: Medical History No pertinent past medical history neg hx: hypertension, diabetes, thyroid, DVT/PE PCP: none Surgical History H/O dilation and curettage x1-- SAB H/O wisdom tooth extraction 2015 S/P cholecystectomy 2017 Family History Mother Diabetes Grandmother Breast cancer paternal, age onset 40's Father Diabetes Hypertension Hyperlipidemia Thyroid condition Grandfather Heart disease paternal Family/Other Uterine cancer maternal aunt, age onset 30's Ovarian cancer maternal aunt, age onset 30's Denies family history of Colon cancer Clotting disorder Anesthesia complication Bleeding disorder Stroke Social History (Updated 08/22/22 @ 15:54 by Aquiles Darden MD) Smoking and tobacco status: never smoked Alcohol intake: never Substance/Drug Use: never Female Reproductive History: Date of last menstrual period: 01/16/21 Vitals/I&O/Wt Last Vital Signs Temp 97.7 F 08/22/22 13:44 Pulse 80 08/22/22 13:44 Resp 18 08/22/22 15:38 BP 143/90 08/22/22 14:52 Pulse Ox 95 08/22/22 15:38 O2 Del Method 08/22/22 13:44 Weight last 48 hrs Weight 81.647 kg Physical Exam Const: COMMON NORMALS: no acute distress and patient oriented x3 HENMT: COMMON NORMALS: normocephalic HEAD & SCALP: normocephalic Neck/C-Spine: COMMON NORMALS: no JVD Lymph: LYMPHATIC: no lymphadenopathy noted Resp: COMMON NORMALS: normal respiratory effort, No retractions, No use of accessory muscles and clear to auscultation bilaterally AUSCULTATION: clear to auscultation bilaterally Cardio: COMMON NORMALS: no JVD, regular rate, regular rhythm, S1 normal heart sound present and S2 normal heart sound present RATE: regular rate RHYTHM: regular rhythm HEART SOUNDS: S1 normal heart sound present and S2 normal heart sound present GI: COMMON NORMALS: Normal to inspection, nondistended, normoactive bowel sounds present, Soft to palpation, non-tender, No hepatosplenomegaly present, no masses and no bruits PALPATION: Yes Soft to palpation Extremity: COMMON NORMALS: no calf tenderness and no pedal edema Neuro: COMMON NORMALS: patient oriented x3, CN's II-XII intact bilaterally, moves all extremities, no focal motor deficits and no sensory deficits noted MENINGEAL SIGNS: Yes nuccal rigidity, Yes Brudzinski's sign present and Yes Kernig's sign presnet Psych: COMMON NORMALS: mental status grossly normal Data 08/22/22 14:55 08/22/22 14:55 Micro: Microbiology 08/22/22 14:55 Blood Culture - Preliminary Blood SPECIMEN COLLECTED 08/22/22 15:05 Blood Culture - Preliminary Blood SPECIMEN COLLECTED A&P Assessment and plan (1) Meningitis: Plan Meningitis -CSF studies were unrevealing -However her gram stain is positive for gram-positive rods -Could be contamination versus real infection -We will follow cultures, add blood cultures -Start vancomycin and cefepime -Neurochecks -We will order an MRI of the brain -Full code -Lovenox for DVT prophylaxis Attestations Medical Necessity Statement*: Patient requires hospitalization, inpatient, greater than 2 minutes, for meningitis Coding Level of Care Code 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
--- NOTE | 2022-08-22 16:20 | PC.NURSE ---
pt taken to MRI 1610
[2022-08-22 16:21] LABS: Add Urine Microscopic? NO; Charge for UA Resulting for Rev
[2022-08-22 16:45] LABS: Bilirubin Urine Neg (Negative); Blood Urine Neg (Negative); Glucose Urine UA Norm (Normal); Ketones Urine Negative (Negative); Leukocyte Esterase Urine Negative (Negative); Nitrate Urine Negative (Negative); Protein Urine Neg (Negative); Specific Gravity, Urine 1.015 (1.005-1.030); Urine Appearance Clear (CLEAR); Urine Color Yellow (Yellow); Urobilinogen Urine Norm (Negative); pH Urine 5 (5-7)
[2022-08-22 17:02] LABS: Rapid Plasma Reagin Syphilis Nonreactive (Nonreactive)
[2022-08-22] MEDS: diphenhydrAMINE 50 mg/mL SDV 1mL 25 MG IVP (17:47)
--- NOTE | 2022-08-22 18:14 | P.CONIM_ITS ---
Providers/Reason For Consult Consulting Physician/Specialty*: Lisa Hernandez MD/Infectious Disease Reason for Consult*: Meningitis Requesting Physician: Dr. Parmar/ER Attending Physician: Aquiles Darden MD Primary Care Provider: Damien Loo MD History of Present Illness History of Present Illness Esperanza Moon is a 32 year old female without known significant without known significant comorbidities who was in her usual state of health until 2 PM yesterday. While doing some housework she had sudden onset of headache which she described as the worst of her life. She also started feeling unwell and appears had a syncopal episode. Her came to the house at around 6 PM and noted her to be confused. Patient states she feels as if she is in a brain fog and cannot think clearly. At around 1 AM she got up to use the bathroom slumped over and became nonresponsive. She was brought into the emergency room at this time. CT head and CTA of her head and neck were unremarkable. MRI of her head performed today additionally does not have any suspicious findings. Through the course of the night she had continued to complain of nausea, dizziness, intermittent headache and also photophobia.lumbar puncture was performed overnight which showed only 1 WBC, normal glucose, normal protein. Gram stain however today has revealed gram-positive rods. She denies any other sick contacts. She has a history of recurrent cold sores. She most recently had a cold sore over her lips. She has preschool-aged childre n and a young infant who have been sick recently with multiple viral illnesses. They have also had group A strep. Patient herself denies any recent URI type symptoms. She has irritable bowel disease and has recurrent diarrhea. She has been under tremendous stress recently due to her children's illnesses and attributes her current diarrhea for the past week to her stress. She often eats deli meats and cheese. Cooked meat is often medium rare. No history of consumption of unpasteurized food products. Lives at home with and kids. No history of antibiotic exposure prior to taking the lumbar puncture. Denies history of IV drug use. NO h/o STDs Review of Systems General: Reports: 10 or more systems reviewed and unremarkable except in HPI and below Const: Denies: fever(s), chills or body aches Eyes: Denies: change in vision, blurry vision or photophobia ENMT: Reports: hoarseness; Denies: throat pain, enlarged tonsils, odynophagia or nasal congestion Card: Denies: chest pain, palpitations, irregular heart rhythm, edema, swelling of feet/ankles, lightheadedness, pre-syncope, dyspnea on exertion or orthopnea Resp: Denies: dyspnea, productive cough, non-productive cough, wheezing, stridor, pain on inspiration, change in phlegm color, hemoptysis or chest congestion GI: Denies: abdominal pain, nausea, vomiting, hematemesis, coffee ground emesis, dysphagia, heartburn, diarrhea, constipation, GI cramping, change in stool character, hematochezia or melena : Denies: flank pain, difficulty voiding, dysuria, urinary frequency, urinary urgency, urinary hesitancy or hematuria Musc: Denies: neck pain, back pain, extremity pain, joint swelling, joint warm th or deformity Neuro: Denies: headache(s), numbness in extremities, weakness in extremities, sensory changes, difficulty walking, frequent falls, dizziness, vertigo, beh avioral changes, Slurred speech present or seizure-like activity Psych: Denies: anxiety, depression, suicidal ideation or homicidal ideation Endo: Denies: polyuria, polydipsia, tired all the time, cold intolerance or hot flashes Matti/Lymph: Denies: easy bruising or easy bleeding Medications/Allergies Home Medications Medication Instructions Recorded Confirmed Last Taken Type vit no.95-ferrous 1 tab PO DAILY 09/18/21 08/22/22 11/30/21 History fumarate 28 mg-folic acid 800 mcg tablet ( Multivitamins) acetaminophen 500 mg tablet 1,000 mg PO Q6H PRN Pain 08/22/22 08/22/22 08/15/22 History ibuprofen 800 mg tablet 800 mg PO TID PRN Pain 08/22/22 08/22/22 08/15/22 History meclizine 25 mg tablet 25 mg PO BID PRN dizziness #14 tabs 08/22/22 08/22/22 Unknown Rx paroxetine HCl 40 mg tablet 40 mg PO BEDTIME 08/22/22 08/22/22 08/22/22 History went ahead and took Allergies Allergy/AdvReac Type Severity Reaction Status Date / Time Influenza Virus Vaccines Allergy Severe swelling, Verified 12/01/21 07:34 rash Latex, Natural Rubber Allergy Severe redness, Verified 12/01/21 07:34 swelling, itching PFSH Acute PFSH: Medical History No pertinent past medical history neg hx: hypertension, diabetes, thyroid, DVT/PE PCP: none Surgical History H/O dilation and curettage x1-- SAB H/O wisdom tooth extraction 2015 S/P cholecystectomy 2017 Family History Mother Diabetes Grandmother Breast cancer paternal, age onset 40's Father Diabetes Hypertension Hyperlipidemia Thyroid condition Grandfather Heart disease paternal Family/Other Uterine cancer maternal aunt, age onset 30's Ovarian cancer maternal aunt, age onset 30's Denies family history of Colon cancer Clotting disorder Anesthesia complication Bleeding disorder Stroke Social History Smoking and tobacco status: never smoked Alcohol intake: never Substance/Drug Use: never Female Reproductive History: Date of last menstrual period: 01/16/21 Vitals/I&O/Wt Last Vital Signs Temp 97.7 F 08/22/22 13:44 Pulse 72 08/22/22 16:57 Resp 18 08/22/22 15:38 BP 115/74 08/22/22 15:55 Pulse Ox 98 08/22/22 16:57 O2 Del Method 08/22/22 16:57 Weight last 48 hrs Weight 81.647 kg Physical Exam Narrative: General: No acute distress, AO x3 HEENT: PERRLA, pupils bilaterally equal and reactive, pallors not present Chest: Normal vesicular breath sounds, no added sounds, equal good air entry bilaterally CVS: S1-S2 regular, no murmurs, no tachycardia, no gallops, no rubs Abdomen: Soft, nontender, no organomegaly, bowel sounds present Neuro: No focal deficits, no facial deformity, AO x3, power 5/5 in all limbs Data 08/22/22 14:55 08/22/22 14:55 Micro: Microbiology 08/22/22 14:55 Blood Culture - Preliminary Blood SPECIMEN COLLECTED 08/22/22 15:05 Blood Culture - Preliminary Blood SPECIMEN COLLECTED CSF gram stain: GPR , pending further identification A&P Assessment and plan (1) Meningitis: Patient presenting to the emergency room with c/o headache, photophobia, disorientation and ?syncopal events CT head/ CTA head and neck/ MRI head unremarkable. No gross neck stiffness on exam however c/o back pain since LP yesterday. CSF analysis bland, not characteristic of bacterial meningitis however given her concerning symptoms and a positive gram stain will treat as presumptive meningitis for now. Will discuss with micro lab in am regarding final gram stain and cx results, uncertain if this is a contamination She has been started on treatment with cefepime and vancomycin check bacterial AG panel from CSF given her h/o recurrent cold sores and bland CSF, cannot exclude aseptic meningitis at this time. Check HSV DNA and add ACV 10mg/kg iv q8h while pending results negative serum RPR, pending tick panel, pending cryptococcus AG Plan continue cefepime/vancomycin/ACV while pending further cx and diagnostic data Consult Attestations Medical Necessity Statement: suspected meningitis. 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
[2022-08-22] MEDS: ondansetron 2 mg/ML SDV 2 mL 4 MG IVP (18:47)
[2022-08-22] MEDS: morphine 4 mg/mL SDV 1 mL 1 MG IVP (18:47)
[2022-08-22] MEDS: acyclovir 800 MG in sodium chloride 0.9% (100 ml) 100 ML 110 MG IV (20:55)
[2022-08-22] MEDS: enoxaparin 40 mg/0.4 mL Syringe SUBCUT (20:57)
[2022-08-22] MEDS: pantoprazole 40 mg SDV IVP (21:08)
[2022-08-22 23:03] LABS: Hepatitis A Antibody IgM Non-Reactive (Nonreactive); Hepatitis B Core IgM Non-Reactive (Nonreactive); Hepatitis B Surface Antigen Non-Reactive (Nonreactive); Hepatitis C Virus Antibody Non-Reactive (Nonreactive)
[2022-08-22] MEDS: diphenhydrAMINE 25 mg Capsule PO (23:19)
[2022-08-23] VITALS (14 sets, daily range): BP systolic 92–110; BP diastolic 65–74; PULSE 77–97; RESP 16–19; TEMP 36.7–37.1; O2SAT 97–99
[2022-08-23 00:07] LABS: HIV 1 & 2 Antibody Non-Reactive (Non-Reactiv); HIV 1 & 2 Antigen Non-Reactive (Non-Reactiv)
[2022-08-23 01:19] LABS: Adenovirus Not Detected (NOT DETECT); Chlamydia Pneumoniae Not Detected (NOT DETECT); Coronavirus 229E,HKU1,NL63,OC4 Not Detected (NOT DETECT); Human Metapneumovirus Not Detected (NOT DETECT); Human Rhinovirus/Enterovirus Not Detected (NOT DETECT); Influenza A Not Detected (NOT DETECT); Influenza A H1 Not Detected (NOT DETECT); Influenza A H1-2009 Not Detected (NOT DETECT); Influenza A H3 Not Detected (NOT DETECT); Influenza B Not Detected (NOT DETECT); Mycoplasma Pneumoniae Not Detected (NOT DETECT); Parainfluenza Virus Type 1 Not Detected (NOT DETECT); Parainfluenza Virus Type 2 Not Detected (NOT DETECT); Parainfluenza Virus Type 3 Not Detected (NOT DETECT); Parainfluenza Virus Type 4 Not Detected (NOT DETECT); Respiratory Syncytial Virus A Not Detected (NOT DETECT); Respiratory Syncytial Virus B Not Detected (NOT DETECT); SARS-COV-2 Not Detected (NOT DETECT)
[2022-08-23] MEDS: cefepime 2,000 MG in sodium chloride 0.9% (plus) 50 ML 100 MG IV (03:45)
[2022-08-23] MEDS: morphine 4 mg/mL SDV 1 mL 1 MG IVP ×3 (04:02→22:37)
[2022-08-23] MEDS: meclizine 25 mg tablet PO ×2 (04:12→16:02)
[2022-08-23] MEDS: acyclovir 800 MG in sodium chloride 0.9% (100 ml) 100 ML 110 MG IV ×2 (05:24→19:58)
[2022-08-23 06:03] LABS: Basophils % 0.4 %; Eosinophils # 0.2 10^3/uL (0.0-0.8); Eosinophils % 2.5 %; Hematocrit 37.3 % (37.0-47.0); Hemoglobin 11.6 g/dL (11.5-15.3); Lymphocytes # 2.2 10^3/uL (0.8-4.8); Lymphocytes % 27.1 %; Mean Corpuscular HGB Conc 31.1 g/dL (30.0-36.0); Mean Corpuscular Volume 83.4 fl (81-99); Mean Platelet Volume 10.2 fL (7.4-10.4); Monocytes # 0.6 10^3/uL (0.2-0.9); Monocytes % 7.5 %; Neutrophils # 5.02 10^3/uL (1.8-7.7); Neutrophils % 62.3 %; Nucleated Red Blood Cells % 0 %; Platelet Count 280 10^3/cmm (130-400); Red Blood Count 4.47 10^6/uL (4.1-5.3); Red Cell Distribution Width 14.6 % (12.1-15.1); White Blood Count 8.1 10^3/uL (4.0-10.0)
[2022-08-23 06:35] LABS: Anion Gap 12.1 (5-19); Blood Urea Nitrogen 10 mg/dL (6-20); Calcium 8.8 mg/dL (8.5-10.5); Carbon Dioxide 24 mmol/L (22-29); Chloride 106 mmol/L (98-107); Chol HDL Ratio 4.46 mg/dL (0.0-4.40); Cholesterol 156 mg/dL (0-200); Glomerular Filtration Rate 98.3 mL/min (90-130); Glucose 95 mg/dL (65-115); HDL Cholesterol 35 mg/dL (60-100); LDL Cholesterol Calculated 97 mg/dL (50-129); LDL HDL Ratio 2.77 RATIO (0.00-3.22); Osmolality Calculated 285 mOsm/kg (285-295); Potassium 4.1 mmol/L (3.5-5.1); Sodium 138 mmol/L (136-145); Thyroid Stimulating Hormone 2.87 uIU/mL (0.27-4.20); Triglycerides 119 mg/dL (0-150)
[2022-08-23 08:00] LABS: Estmated Average Glucose 103; Hemoglobin A1C 5.2 % (4.0-6.0)
[2022-08-23] MEDS: vancomycin 1,250 MG/250 ML PIGGYBACK 50 MG IV (08:55)
[2022-08-23] MEDS: diphenhydrAMINE 25 mg Capsule PO (08:56)
[2022-08-23] MEDS: ondansetron 2 mg/ML SDV 2 mL 4 MG IVP (12:43)
[2022-08-23] MEDS: TRAMadol 50 mg Tablet PO (12:55)
--- NOTE | 2022-08-23 13:32 | P.PN_ITS ---
Subjective Subjective: Patient was seen this morning, she continues to have a headache, no nausea, no vomiting Vitals/I&O/Wt Last Vital Signs Temp 98.2 F 08/23/22 12:00 Pulse 93 08/23/22 12:00 Resp 16 08/23/22 12:00 BP 110/74 08/23/22 12:00 Pulse Ox 97 08/23/22 12:00 O2 Del Method 08/23/22 12:00 08/22/22 08/23/22 08/23/22 22:59 06:59 14:59 Intake Total 300 / 300 532.000 / 832.000 Output Total 250 / 250 Balance 300 / 300 282.000 / 582.000 Weight last 48 hrs Weight 87.997 kg Weight 81.647 kg Physical Exam Const: COMMON NORMALS: no acute distress and patient oriented x3 Resp: COMMON NORMALS: normal respiratory effort, No retractions, No use of accessory muscles and clear to auscultation bilaterally AUSCULTATION: clear to auscultation bilaterally Cardio: COMMON NORMALS: regular rate, regular rhythm, S1 normal heart sound present and S2 normal heart sound present RATE: regular rate RHYTHM: regular rhythm HEART SOUNDS: S1 normal heart sound present and S2 normal heart sound present GI: COMMON NORMALS: Normal to inspection, nondistended, normoactive bowel sounds present and non-tender Extremity: COMMON NORMALS: no pedal edema Neuro: COMMON NORMALS: patient oriented x3 Psych: COMMON NORMALS: mental status grossly normal Data 08/23/22 05:00 08/23/22 05:00 Micro: Microbiology 08/22/22 04:00 Cryptococcal Antigen - Final Cerebrospinal Fluid 08/22/22 04:00 Bacterial Antigens - Final Cerebrospinal Fluid 08/22/22 14:55 Blood Culture - Preliminary Blood SPECIMEN COLLECTED 08/22/22 15:05 Blood Culture - Preliminary Blood SPECIMEN COLLECTED A&P Assessment and plan (1) Meningitis: -CSF studies were unrevealing Had MRI -1.? No evidence of restricted diffusion to suggest acute ischemia. 2.? No suspicious intracranial signal abnormalities considering motion artifact. 3.? No hemosiderin on susceptibly weighted images. 4.? No hydrocephalus or mass effect. 5.? No other suspicious findings. -However her gram stain is positive for gram-positive rods -Likely contamination -We will follow cultures, add blood cultures, LP cultures -Continue vancomycin and cefepime, acyclovir added for antiviral coverage -Neurochecks -Has complaints of chest pain this morning, will do EKG series -Has complaints of a headache, started tramadol -Full code -Lovenox for DVT prophylaxis Plan Plan for today continue antibiotics, continue antivirals, order EKG series for chest pain, Ultram for headache Attestations Medical Necessity Statement*: Patient requires hospitalization for concerns for meningitis Coding Level of Care Code Acute Mission Coordinator for [facility] Diagnoses Meningitis G03.9
[2022-08-23] MEDS: acyclovir 800 MG in sodium chloride 0.9% (100 ml) 100 ML 100 MG IV (13:47)
--- NOTE | 2022-08-23 14:39 | ECG_ITS ---
[facility] Test Date: 2022-08-23 Pat Name: Esperanza Moon Department: Room: 258 Gender: Female [employer]er: : 1990 Requested By: Aquiles Darden Order Number: [id number] Reading MD: Sushant Bourgeois Measurements Intervals [place] Rate: 99 P: 58 GA: 126 QRS: 56 QRSD: 82 T: 22 QT: 326 QTc: 419 Interpretive Statements SINUS RHYTHM NONSPECIFIC T-WAVE ABNORMALITY Compared to ECG 08/22/2022 02:36:28 No significant changes Electronically Signed On 08-24-2022 15:25:34 SUPERVISOR BIT AND SHANK DEPARTMENT by Sushant Bourgeois [id number]
[2022-08-23 15:29] LABS: Troponin(5th) Baseline 6 ng/L (0-10)
--- NOTE | 2022-08-23 15:32 | ECG_ITS ---
[facility] Test Date: 2022-08-23 Pat Name: Esperanza Moon Department: Room: 258 Gender: Female Bus Boy: : 1990 Requested By: Aquiles Darden Order Number: [id number] Reading MD: Sushant Bourgeois Measurements Intervals [place] Rate: 86 P: 51 NV: 132 QRS: 62 QRSD: 80 T: 10 QT: 344 QTc: 414 Interpretive Statements SINUS RHYTHM NONSPECIFIC T-WAVE ABNORMALITY Compared to ECG 08/23/2022 14:39:18 No significant changes Electronically Signed On 08-24-2022 15:46:53 POOL TABLE MECHANIC by Sushant Bourgeois [id number]
[2022-08-23 15:35] LABS: Vancomycin Trough 32.1 ug/mL (10-15)
[2022-08-23 18:32] LABS: Troponin 5 2HR Delta 0 ABS# (0-10)
[2022-08-23] MEDS: pantoprazole 40 mg SDV IVP (19:59)
[2022-08-23] MEDS: enoxaparin 40 mg/0.4 mL Syringe SUBCUT (20:59)
[2022-08-23] MEDS: PARoxetine 20 mg Tablet 40 MG PO (20:59)
--- NOTE | 2022-08-23 22:27 | PC.NURSE ---
This nurse called pharmacy at this time to verify the Vancomycin dosing instructions. The current active orders are the correct ones verified with pharmacy.
[2022-08-23 22:28] LABS: Troponin 5 6HR Delta 0 ng/L (0-12)
[2022-08-24] VITALS (9 sets, daily range): BP systolic 100–115; BP diastolic 66–76; PULSE 71–89; RESP 15–18; TEMP 37–37.2; O2SAT 94–97
[2022-08-24] MEDS: diphenhydrAMINE 25 mg Capsule PO ×2 (00:01→13:03)
--- NOTE | 2022-08-24 00:55 | PC.NURSE ---
upon most recent rounding the patient ambulated to the bathroom with standby assistance. was also in the room at this time and they both verbalized that she tolerated it very well.
[2022-08-24] MEDS: cefepime 2,000 MG in sodium chloride 0.9% (plus) 50 ML 100 MG IV (02:02)
[2022-08-24] MEDS: acyclovir 800 MG in sodium chloride 0.9% (100 ml) 100 ML 110 MG IV ×2 (03:04→11:50)
[2022-08-24 05:27] LABS: Basophils % 0.4 %; Eosinophils # 0.1 10^3/uL (0.0-0.8); Eosinophils % 0.6 %; Hemoglobin 10.9 g/dL (11.5-15.3); Lymphocytes # 1.4 10^3/uL (0.8-4.8); Lymphocytes % 16.7 %; Mean Corpuscular HGB Conc 31.1 g/dL (30.0-36.0); Mean Corpuscular Hemoglobin 25.8 pg (28.0-34.0); Mean Corpuscular Volume 82.9 fl (81-99); Mean Platelet Volume 9.9 fL (7.4-10.4); Monocytes # 0.6 10^3/uL (0.2-0.9); Monocytes % 7.1 %; Neutrophils # 6.37 10^3/uL (1.8-7.7); Neutrophils % 74.7 %; Nucleated Red Blood Cells % 0 %; Platelet Count 264 10^3/cmm (130-400); Red Blood Count 4.22 10^6/uL (4.1-5.3); Red Cell Distribution Width 14.1 % (12.1-15.1); White Blood Count 8.5 10^3/uL (4.0-10.0)
[2022-08-24 05:51] LABS: Anion Gap 13.1 (5-19); Blood Urea Nitrogen 9 mg/dL (6-20); Calcium 9.1 mg/dL (8.5-10.5); Carbon Dioxide 24 mmol/L (22-29); Chloride 102 mmol/L (98-107); Glomerular Filtration Rate 98.3 mL/min (90-130); Glucose 110 mg/dL (65-115); Osmolality Calculated 279 mOsm/kg (285-295); Potassium 4.1 mmol/L (3.5-5.1); Sodium 135 mmol/L (136-145)
[2022-08-24] MEDS: acetaminophen 500 mg Tablet 1000 MG PO ×2 (09:33→17:34)
[2022-08-24] MEDS: ondansetron 2 mg/ML SDV 2 mL 4 MG IVP ×2 (09:33→17:33)
[2022-08-24] MEDS: TRAMadol 50 mg Tablet PO (11:02)
--- NOTE | 2022-08-24 13:13 | P.PN_ITS ---
Subjective Subjective: Infectious disease progress note. Per discussion with micro lab there appears to be growth in the thio broth which appears to be alphahemolytic Streptococcus, waiting to be further identified. Patient states her headaches are slightly improved compared to previously. She feels like she is improving. No neck stiffness today. She has been afebrile and hemodynamically stable. Medications: Reviewed: Yes Vitals/I&O/Wt Last Vital Signs Temp 98.9 F 08/24/22 12:00 Pulse 71 08/24/22 12:00 Resp 16 08/24/22 12:00 BP 115/75 08/24/22 12:00 Pulse Ox 95 08/24/22 12:00 O2 Del Method 08/24/22 08:00 08/23/22 08/24/22 08/24/22 22:59 06:59 14:59 Intake Total 1142 / 1392 666 / 2058 116 / 116 Output Total 400 / 400 Balance 742 / 992 666 / 1658 116 / 116 Weight last 48 hrs Weight 87.997 kg Weight 81.647 kg Physical Exam Narrative: General: No acute distress, AO x3 HEENT: PERRLA, pupils bilaterally equal and reactive, pallors not present Chest: Normal vesicular breath sounds, no added sounds, equal good air entry bilaterally CVS: S1-S2 regular, no murmurs, no tachycardia, no gallops, no rubs Abdomen: Soft, nontender, no organomegaly, bowel sounds present Neuro: No focal deficits, no facial deformity, AO x3, power 5/5 in all limbs Data 08/24/22 05:18 08/24/22 05:18 Micro: Microbiology 08/22/22 16:55 CSF Culture - Preliminary Cerebrospinal Fluid 08/22/22 15:05 Blood Culture - Preliminary Blood NEGATIVE TO DATE 08/22/22 14:55 Blood Culture - Preliminary Blood NEGATIVE TO DATE 08/22/22 23:30 Chlamydia trachomatis (ROBE) - Final Urine Random Neisseria gonorrhoeae (ROBE) - Final 08/23/22 03:30 MRSA Culture - Final Nose 08/22/22 04:00 Cryptococcal Antigen - Final Cerebrospinal Fluid 08/22/22 04:00 Bacterial Antigens - Final Cerebrospinal Fluid A&P Assessment and plan (1) Meningitis: Patient presenting to the emergency room with c/o headache, photophobia, disorientation and ?syncopal events CT head/ CTA head and neck/ MRI head unremarkable. No gross neck stiffness on exam however c/o back pain and persisting headaches which have been the worst in her life. CSF analysis bland, not characteristic of bacterial meningitis however given her concerning symptoms and a positive gram stain will treat as presumptive meningitis for now. Discussed with micro lab, initial gram stain was appearing to be gram-positive dontrell, however now cultures are with scant growth of alphahemolytic Streptococcus, possibility of Streptococcus pneumonia cannot be excluded at this time. While this may still be business banking representative of contamination, given her history of headache, neck stiffness, multiple recent URIs and her children being sick with strep throat , cannot exclude this to be a true infection. She has been started on treatment with cefepime and vancomycin , change to cefepime to ceftriaxone 2g iv q12h and continue vancomycin while pending final identification Acyclovir can be discontinued as no evidence of viral meningitis at this time. 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
[2022-08-24] MEDS: morphine 4 mg/mL SDV 1 mL 1 MG IVP ×2 (13:15→23:27)
--- NOTE | 2022-08-24 13:23 | PM.PN ---
Subjective Subjective: Patient was seen this morning no nausea, vomiting, no neck pain, no neck stiffness, she does feel better Vitals/I&O/Wt Last Vital Signs Temp 98.9 F 08/24/22 12:00 Pulse 71 08/24/22 12:00 Resp 15 08/24/22 13:15 BP 115/75 08/24/22 12:00 Pulse Ox 95 08/24/22 12:00 O2 Del Method 08/24/22 08:00 08/23/22 08/24/22 08/24/22 22:59 06:59 14:59 Intake Total 1142 / 1392 666 / 2058 116 / 116 Output Total 400 / 400 Balance 742 / 992 666 / 1658 116 / 116 Weight last 48 hrs Weight 87.997 kg Weight 81.647 kg Physical Exam Const: COMMON NORMALS: no acute distress and patient oriented x3 Resp: COMMON NORMALS: normal respiratory effort, No retractions, No use of accessory muscles and clear to auscultation bilaterally AUSCULTATION: clear to auscultation bilaterally Cardio: COMMON NORMALS: regular rate, regular rhythm, S1 normal heart sound present and S2 normal heart sound present RATE: regular rate RHYTHM: regular rhythm HEART SOUNDS: S1 normal heart sound present and S2 normal heart sound present GI: COMMON NORMALS: Normal to inspection, nondistended, normoactive bowel sounds present and non-tender Extremity: COMMON NORMALS: no pedal edema Neuro: COMMON NORMALS: patient oriented x3 Psych: COMMON NORMALS: mental status grossly normal Data 08/24/22 05:18 08/24/22 05:18 Micro: Microbiology 08/22/22 16:55 CSF Culture - Preliminary Cerebrospinal Fluid 08/22/22 15:05 Blood Culture - Preliminary Blood NEGATIVE TO DATE 08/22/22 14:55 Blood Culture - Preliminary Blood NEGATIVE TO DATE 08/22/22 23:30 Chlamydia trachomatis (ROBE) - Final Urine Random Neisseria gonorrhoeae (ROBE) - Final 08/23/22 03:30 MRSA Culture - Final Nose 08/22/22 04:00 Cryptococcal Antigen - Final Cerebrospinal Fluid 08/22/22 04:00 Bacterial Antigens - Final Cerebrospinal Fluid A&P Assessment and plan (1) Meningitis: -CSF studies were unrevealing Had MRI -1.? No evidence of restricted diffusion to suggest acute ischemia. 2.? No suspicious intracranial signal abnormalities considering motion artifact. 3.? No hemosiderin on susceptibly weighted images. 4.? No hydrocephalus or mass effect. 5.? No other suspicious findings. -However her gram stain is positive for gram-positive rods, waiting on ID identification -Contamination versus real infection -We will follow cultures, add blood cultures, LP cultures -Continue vancomycin and cefepime, acyclovir added for antiviral coverage -Vanco trough was 32.1, recheck vancomycin trough as per pharmacy -Neurochecks -Has complaints of a headache, started tramadol -She is pumping breastmilk, advised that the antibiotics, antivirals, and tramadol will likely be present in breastmilk, which can pose risks to her . Including but not limited to apnea, SIDS, and other complications. For now I would recommend for her to continue to pump breastmilk but to dispose of the breastmilk. For now would formula feed infant. We will have a better outcome for her on discharge of what she needs to do, depending on if she is discharged with antibiotic therapy. Or what medications that she gets here in the hospital as they might have long half-lives, and can affect her infant. She voiced understanding with all questions answered -Full code -Lovenox for DVT prophylaxis Plan Plan for today continue antibiotics, continue antivirals, Ultram for headache Attestations Medical Necessity Statement*: Patient requires a position for concerns for meningitis Coding Level of Care Code Acute Check Embosser for [facility] Diagnoses Meningitis G03.9
[2022-08-24] MEDS: cefTRIAXone 2,000 MG in sodium chloride 0.9% (plus) 50 ML 100 MG IV (14:25)
[2022-08-24] MEDS: pantoprazole 40 mg SDV IVP (20:56)
[2022-08-24] MEDS: PARoxetine 20 mg Tablet 40 MG PO (20:57)
[2022-08-24] MEDS: enoxaparin 40 mg/0.4 mL Syringe SUBCUT (20:57)
[2022-08-25] VITALS (8 sets, daily range): BP systolic 98–112; BP diastolic 63–77; PULSE 66–86; RESP 17–20; TEMP 36.5–37.1; O2SAT 94–98
[2022-08-25] MEDS: cefTRIAXone 2,000 MG in sodium chloride 0.9% (plus) 50 ML 100 MG IV ×2 (02:20→14:27)
[2022-08-25 05:47] LABS: Basophils % 0.4 %; Eosinophils # 0.2 10^3/uL (0.0-0.8); Hemoglobin 10.9 g/dL (11.5-15.3); Lymphocytes # 2.2 10^3/uL (0.8-4.8); Mean Corpuscular HGB Conc 31.1 g/dL (30.0-36.0); Mean Corpuscular Hemoglobin 25.8 pg (28.0-34.0); Mean Corpuscular Volume 82.7 fl (81-99); Mean Platelet Volume 10.2 fL (7.4-10.4); Monocytes # 0.7 10^3/uL (0.2-0.9); Neutrophils # 4.56 10^3/uL (1.8-7.7); Neutrophils % 59.3 %; Nucleated Red Blood Cells % 0 %; Platelet Count 254 10^3/cmm (130-400); Red Blood Count 4.23 10^6/uL (4.1-5.3); Red Cell Distribution Width 13.8 % (12.1-15.1); White Blood Count 7.7 10^3/uL (4.0-10.0)
[2022-08-25 06:07] LABS: Albumin Level 3.5 g/dL (3.5-5.2); Chloride 104 mmol/L (98-107); Sodium 138 mmol/L (136-145)
[2022-08-25 06:41] LABS: Alanine Aminotransferase 39 U/L (0-33); Alkaline Phosphatase 108 U/L (35-105); Anion Gap 11.8 (5-19); Aspartate Amino Transferase 33 U/L (0-32); Blood Urea Nitrogen 9 mg/dL (6-20); Calcium 8.6 mg/dL (8.5-10.5); Carbon Dioxide 26 mmol/L (22-29); Globulin 2.8 g/dL (1.3-4.6); Glomerular Filtration Rate 117.4 mL/min (90-130); Osmolality Calculated 285 mOsm/kg (285-295); Total Bilirubin 0.2 mg/dL (0.15-1.2); Total Protein 6.3 g/dL (6.6-8.7)
[2022-08-25 06:51] LABS: Glucose 110 mg/dL (65-115); Potassium 3.8 mmol/L (3.5-5.1)
[2022-08-25] MEDS: TRAMadol 50 mg Tablet PO (08:37)
[2022-08-25] MEDS: morphine 4 mg/mL SDV 1 mL 1 MG IVP (10:28)
--- NOTE | 2022-08-25 10:51 | MR_ITS ---
WS: [id number] MRI VENOGRAPHY HEAD INDICATION: Headache x5 days TECHNIQUE: MR venography 2-D and 3-D nmei-th-sykhmg imaging without gadolinium enhancement. FINDINGS: Sagittal sinus is patent. Dominant RIGHT transverse sinus. Distal jugular veins and sigmoid sinuses are patent. Normal straight sinus and internal cerebral veins. No evidence of dural sinus th rombosis. IMPRESSION: No evidence of dural sinus thrombosis.
--- NOTE | 2022-08-25 12:17 | PC.CHAP ---
Pastoral Care Encounter/Spiritual Assessment Type of Contact [] Declined special forces medical sergeant visit [] Patient/Family/Request visit [] Outpatient visit [] Follow-up visit [] Physician referral [] Code/Alert x] Routine visit [] Staff referral [] Actively dying [] Patient sleeping [] Family support [] [] Out of room [] Palliative care [] [] Receiving care in room [] Pre-surgical visit [] Trauma [] Long length of stay [] ICU visit [x] Other:isolation Relational/Emotional Strength [] Patient feels connected with others/family/visitors/staff [] Distress [] Loneliness/isolation [] Abandonment Spirituality of Patient [] Person of [place] [] Attends Congregation of their [place] [] Believes in Prayer [] Reads Bible or Quaker materials [] There are Spiritual issues to be addressed Medical Officer Psychiatry Interventions [] Prayer [] Active listening [] Non-anxious presence [] Spiritual/emotional support [] Crisis/trauma care [] Spiritual counseling [] Bereavement support [] Provided bereavement packet [] Provided Bible/devotional materials [] Provided toy/stuffed animal, coloring book to patient or family member [] Provided Communion [] Anointing/[place] [] Salvation [] Completed spiritual assessment [] Other: Impact on Illness or Injury [] Angry [] Fearful [] Anxious [] Often cries [] Exhaustion [] Unable to work [] Unable to attend presybeterian [] Unable to walk/stand [] Unable to read [] Unable to drive [] Unable to eat/drink [] Unable to sleep [] Unable to be with family [] Patient intubated [] Other: Summary Time spent with patient
--- NOTE | 2022-08-25 12:28 | PM.PN ---
Subjective Subjective: Infectious disease progress note. CSF culture has been updated to reflect streptococcus viridans. Growth in thio broth only. Continues to c/o headache Chart reveiwed, Case discussed with micro lab, celestina; patient not seen today Medications: Reviewed: Yes Vitals/I&O/Wt Last Vital Signs Temp 98.1 F 08/25/22 08:00 Pulse 71 08/25/22 08:00 Resp 17 08/25/22 10:28 BP 112/77 08/25/22 08:00 Pulse Ox 94 08/25/22 08:00 O2 Del Method 08/25/22 08:00 08/24/22 08/25/22 08/25/22 22:59 06:59 14:59 Intake Total 290 / 646 500 / 1146 Balance 290 / 646 500 / 1146 Weight last 48 hrs Weight 87.997 kg Physical Exam Narrative: General: No acute distress, AO x3 HEENT: PERRLA, pupils bilaterally equal and reactive, pallors not present Chest: Normal vesicular breath sounds, no added sounds, equal good air entry bilaterally CVS: S1-S2 regular, no murmurs, no tachycardia, no gallops, no rubs Abdomen: Soft, nontender, no organomegaly, bowel sounds present Neuro: No focal deficits, no facial deformity, AO x3, power 5/5 in all limbs Data 08/25/22 05:20 08/25/22 05:20 Micro: Microbiology 08/22/22 16:55 CSF Culture - Preliminary Cerebrospinal Fluid [facility] [address] [place] [id number] MELISSA WEINBERG, STATE EPIDEMIOLOGIST NAME: Esperanza Moon LOC: ER U #: [id number] AGE/SX: 32/F ROOM: RE08/22/[address]: Eagle Salgado MD : 1990 BED: DIS: FAX #: STATUS: DEP ER TLOC: Spec #: [id number] Prachi: 08/22/225 Status: COMP Req #: [id number] Recd: 08/22/[address]: Eagle Salgado MD Src: CSF SpDesc: Ordered: CSf Culture GS Procedure Result Verified Site Gram Stain Final 08/22/22-903 Result FEW GRAM POSITIVE RODS NO WHITE BLOOD CELLS CRITICAL RESULT YES/NO: YES CRITICAL CALLED BY: TO AND READ BACK BY: KIMBERLY DATE: 08/22/22 TIME: 902 * This is a corrected result. * A prior result that was reported as final has been changed. Gram Stain Final (changed) 08/22/22-899 Result FEW GRAM POSITIVE RODS NO WHITE BLOOD CELLS CSF Culture Final 08/25/22-111 Organism 1 Viridans streptococcus group Growth FROM THIO BROTH ONLY DAY 3 PROBABLE CONTAMINANT, WILL PERFORM SENSITIVITIES UPON REQUEST CRITICAL RESULT YES/NO: YES CRITICAL CALLED BY: DARRIAN TO AND READ BACK BY: DR. HERBERT DATE: 08/24/22 TIME: 1125 CSF Culture Preliminary (changed) 08/24/22-1126 ALPHA-STREP GROWING FROM THIO BROTH ONLY ON DAY 2 RESULTS TO FOLLOW CRITICAL RESULT YES/NO: YES CRITICAL CALLED BY: DARRIAN TO AND READ BACK BY: DR. HERBERT DATE: 08/24/22 TIME: 1125 CSF Culture Preliminary (changed) 08/23/22-1633 NO GROWTH AFTER 1 DAY A&P Assessment and plan (1) Meningitis: Patient presenting to the emergency room with c/o headache, photophobia, disorientation and ?syncopal events CT head/ CTA head and neck/ MRI head unremarkable. No gross neck stiffness on exam however c/o back pain and persisting headaches which have been the worst in her life. CSF analysis bland, not typical of bacterial meningitis however gram stain returned positive. Discussed with micro lab, initial gram stain was appearing to be gram-positive dontrell, however now broth cultures are with scant growth of strep viridans. Still no obvious growth on cx plates. 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 Safest course of action si to treat with abx to complete course. She had been started on treatment with cefepime, vancomycin , ACV at admission, narrowed to ceftriaxone 2g iv q12h on 08/24. negative serum RPR, negative cryptococcal Ag, negative GC/chlamydia screen. Plan: Recommend to treat for meningitis with Ceftriaxone 2g iv q12h for total treatment 14 days (08/22-09/04). PICC line to facilitate above. Can be taken off isolation precautions. Discussed with hospitalist Plan change abx to ceftriaxone, vancomycin and D/C ACV Attestations Medical Necessity Statement*: per admitting note Coding Level of Care Code Acute Information Security Consultant for [facility] Diagnoses Meningitis G03.9
[2022-08-25] MEDS: diphenhydrAMINE 25 mg Capsule PO (13:14)
[2022-08-25] MEDS: ondansetron 2 mg/ML SDV 2 mL 4 MG IVP ×2 (13:14→14:15)
[2022-08-25] MEDS: dihydroergotamine 1 mg/mL Inj IVP ×2 (13:28→13:51)
[2022-08-25] MEDS: ketorolac 30 mg/mL INJ 15 MG IVP (14:14)
[2022-08-25 14:19] LABS: Lyme AB Screen <0.90 index
[2022-08-25 16:04] LABS: HSV 2 IGG Type Specific AB <0.90 index
--- NOTE | 2022-08-25 17:22 | P.PN_ITS ---
Subjective Subjective: Patient was seen and examined this morning continues to complain of severe headache 7 out of 10 in intensity, bandlike, MRV head without contrast was done: Dural sinus thrombosis has been ruled out. Patient was started on D.H.E. 45 protocol: Did not responded well to it, started having blurred vision, was extremely nauseous. Received a dose of IV Toradol, has been started on p.o. Toradol. Neurology has been consulted. Medications: Reviewed: Yes Medication Review Details: Generic Name Dose Route Start Last Admin Trade Name Freq PRN Reason Stop Dose Admin Acetaminophen 1,000 mg 08/22/22 18:20 08/24/22 17:34 Acetaminophen 50 0 Mg Tablet PO 1,000 mg Q6H PRN Administration Pain Diphenhydramine HC l 25 mg 08/22/22 23:09 08/25/22 13:14 Diphenhydramine 25 Mg Capsule PO 25 mg Q4H PRN Administration ITCHING Enoxaparin Sodium 40 mg 08/22/22 21:00 08/24/22 20:57 Enoxaparin 40 Mg /0.4 Ml Syringe SUBCUT 40 mg Q24H BARNEY Administration Ceftriaxone Sodium 2,000 mg/ 50 mls @ 100 mls/ hr 08/24/22 14:00 08/25/22 15:01 Sodium Chloride IV Infused Q12H BARNEY Infusion Protocol Meclizine HCl 25 mg 08/22/22 18:20 08/23/22 16:02 Meclizine 25 Mg Tablet PO 25 mg BID PRN Administration dizziness Morphine Sulfate 1 mg 08/22/22 18:20 08/25/22 10:28 Morphine 4 Mg/Ml Sdv 1 Ml IVP 1 mg Q4H PRN Administration SEVERE PAIN Non-Formulary Medi cation 1 tab 08/23/22 09:00 08/25/22 08:37 Pnv [id number] us Fumarate-Fa [Pr enatal Multivitami ns] PO Not Given DAILY BARNEY Ondansetron HCl 4 mg 08/22/22 18:20 08/25/22 13:14 Ondansetron 2 Mg /Ml Sdv 2 Ml IVP 4 mg Q8H PRN Administration vomiting, or N/V if npo Pantoprazole Sodiu m 40 mg 08/22/22 19:00 08/24/22 20:56 Pantoprazole 40 Mg Sdv IVP 40 mg Q24H BARNEY Administration Paroxetine HCl 40 mg 08/22/22 21:00 08/24/22 20:57 Paroxetine 20 Mg Tablet PO 40 mg BEDTIME BARNEY Administration Tramadol HCl 50 mg 08/24/22 10:15 08/25/22 08:37 Tramadol 50 Mg T ablet PO 50 mg DAILY BARNEY Administration Vitals/I&O/Wt Last Vital Signs Temp 98.4 F 08/25/22 12:00 Pulse 70 08/25/22 12:00 Resp 17 08/25/22 12:00 BP 98/63 08/25/22 12:00 Pulse Ox 95 08/25/22 12:00 O2 Del Method 08/25/22 12:00 08/25/22 08/25/22 08/25/22 06:59 14:59 22:59 Intake Total 500 / 1146 0 / 0 380 / 380 Balance 500 / 1146 0 / 0 380 / 380 Weight last 48 hrs Weight 87.997 kg Physical Exam Const: COMMON NORMALS: patient oriented x3 HENMT: COMMON NORMALS: normocephalic, atraumatic, hearing grossly normal bilaterally and external ears normal HEAD & SCALP: normocephalic and atraumatic EXTERNAL EAR: Yes external ears normal Eye: COMMON NORMALS: no scleral icterus GENERAL EYE: appearance normal, both eyes and all related structures Resp: COMMON NORMALS: normal respiratory effort, No retractions, No use of accessory muscles and clear to auscultation bilaterally EFFORT & INSPECTION: Yes symmetric chest movement AUSCULTATION: clear to auscultation bilaterally Cardio: COMMON NORMALS: regular rate, regular rhythm, S1 normal heart sound present, S2 normal heart sound present, No gallops present (Cardio), No murmurs present (Cardio), No rub (Cardio) and Peripheral pulses 2+ throughout RATE: regular rate RHYTHM: regular rhythm HEART SOUNDS: S1 normal heart sound present and S2 normal heart sound present PERIPHERAL PULSES: Peripheral pulses 2+ throughout GI: COMMON NORMALS: Normal to inspection, nondistended, normoactive bowel sounds present, Soft to palpation, non-tender, No hepatosplenomegaly present and no masses AUSCULTATION: Yes normoactive bowel sounds PALPATION: Yes Soft to palpation and Yes No hepatosplenomegaly present RECTAL EXAM: deferred Extremity: COMMON NORMALS: no clubbing, cyanosis or edema and no pedal edema Neuro: COMMON NORMALS: patient oriented x3 Data 08/25/22 05:20 08/25/22 05:20 Micro: Microbiology 08/22/22 16:55 CSF Culture - Preliminary Cerebrospinal Fluid A&P Assessment and plan (1) Meningitis: 32-year-old female with no significant past medical history was admitted with chief complaint of worst headache of her life, altered mental status, photophobia, as well as syncopal episode. She was initially admitted for the management of meningitis. CSF analysis: Has not shown any pertinent cell count, CSF culture: Has grown strep viridans in broth, CSF bacterial antigen panel: Was negative, Neisseria meningitidis was negative, CT head CTA head and neck: Was unremarkable: CTA head and neck has not shown any aneurysm, MRI head: Negative, MRV head did not showed any dural sinus thrombosis, patient was afebrile throughout hospital stay, Kernig's?and Brudzinski was negative (though both the signs are not very specific test, can be absent even in the presence of meningitis), chlamydia and nisseria, ROBE was negative, MRSA PCR was negative, blood culture was negative, CSF cryptococcal antigen was negative, serum RPR was negative,patient was afebrile through hospital stay, she was alert awake oriented*3, though she continued to complain of bandlike headache,7/10 in severity. She was kept on IV antibiotics to cover for meningitis, neurology and infectious disease was on board, patient was given choice of going home on IV antibiotics for total of 14-day course, to cover her up for possible meningitis, given her typical symptoms, neurology was of the opinion that she can be monitored off antibiotics also, it was decided not to continue with antibiotics for now, and monitor her. Strep viridans group in broth is likely being considered as contaminant.For her headache,D.H.E. 45 protocol: Did not responded well to it, started having blurred vision, was extremely nauseous. It was discontinued, she was continued on NSAID opioids, at the time of discharge headache she still has headache, though not very severe, and has been asked to use ibuprofen as well as Tylenol as needed. Overall patient seems to have responded well to above medical management and is currently being discharged in stable condition to home she will continue to follow primary care physician as well as PCP as outpatient. Plan change abx to ceftriaxone, vancomycin and D/C ACV Attestations Medical Necessity Statement*: Patient is to be in hospital for IV antibiotics. Coding Level of Care Code Acute Utilization Review Rn for [facility] Fwd Exam Detailed Diagnoses Meningitis G03.9
--- NOTE | 2022-08-25 19:04 | PM.CONSULT ---
Providers/Reason For Consult Consulting Physician/Specialty*: Dr. Escobedo Reason for Consult*: Intractable headache Attending Physician: Omer Escobedo MD Primary Care Provider: Damien Loo MD History of Present Illness History of Present Illness This 32-year-old woman came to our emergency department on 08/22/2022 complaining of alteration in mental status, headache, fainting. She was having neck pain and had been in and out of consciousness and had trouble staying awake. She felt weak all over. She had no previous history of headaches. CBC was unremarkable. CT of the head and CT angiogram were normal with no sign of an aneurysm. Lumbar puncture was performed in the ER by Dr. Salgado. Her CSF was clear, colorless with 1 white blood cell, no red cells, glucose 55 and protein 22. CMP was unremarkable and CBC was normal. She was feeling better and was sent home. She was called back to the hospital because her Gram stain was abnormal. She was admitted by Dr. Darden and Dr. Hernandez provided consultation. MRI of the brain was normal. She was feeling better by this morning. Dr. Darden called me because her CSF culture showed strep viridans but again there were no cells in her spinal fluid so that could only be a contaminant. I recommended that if the patient still had a headache she should receive D.H.E. 45 but that made her sick. Not only was her CSF acellular but her bacterial antigens were negative including Streptococcus, haemophilus, strep pneumonia and Neisseria meningitis. Her CSF culture was positive in the thio broth only and the final Gram stain was changed to a few gram-positive rods but no white blood cells. Again that was prior to any antibiotic treatment. Dr. Hernandez recommending that she was started on treatment with cefepime and vancomycin at admission and that she should be treated with ceftriaxone 2 g IV every 12 hours for 14 days total. The patient is not prone to headaches. On the day that her symptoms began she was cleaning her closet. She stood up on a chair and was working above shoulder level adjusting things on a shelf. When she stepped down she experienced the sudden onset of severe pain at the base of her skull and in the neck. The pain was excruciating. She has had that pain off and on since then. Currently its more of a smoldering ache that she would graded as 4-01/2010 but she would now better than to be very physically active or it would increase. In the past she has spent quite a bit of time in chiropractic because she is prone to back problems. She had a CT angiogram 08/22/2022 and the reconstructions show good alignment of her vertebra and no significant disc problems within the limits of the test. Review of Systems Const: Denies: fever(s), change in weight or fatigue Eyes: Denies: change in vision, blurry vision, blind spots, photophobia, eye discomfort, seeing flashes or other (Glaucoma) ENMT: Denies: odynophagia, hoarseness, change in hearing, tinnitus, sinus pain or other (Loss of taste/smell) Card: Denies: chest pain, palpitations, syncope or other (Calf cramps) Resp: Denies: dyspnea, non-productive cough, wheezing or hemoptysis GI: Reports: nausea; Denies: abdominal pain, heartburn, diarrhea, constipation or hematochezia : Denies: urinary frequency or urinary incontinence Musc: Reports: neck pain and back pain; Denies: muscle weakness or other (Muscle pain) Skin/Breast: Denies: rash, new lesions or breast mass Neuro: Reports: headache(s), difficulty walking (Because of pain), Slurred speech present and other (Sleep Apnea); Denies: numbness in extremities, weakness in extremities, sensory changes or seizure-like activity Psych: Reports: anxiety and depression (She has had a lot of stress this year.) Endo: Denies: polyuria, polydipsia, excessive sweating or change in body appearance Matti/Lymph: Denies: easy bruising, easy bleeding or enlarged lymph nodes Medications/Allergies Home Medications Medication Instructions Recorded Confirmed Last Taken Type vit no.95-ferrous 1 tab PO DAILY 09/18/21 08/22/22 11/30/21 History fumarate 28 mg-folic acid 800 mcg tablet ( Multivitamins) acetaminophen 500 mg tablet 1,000 mg PO Q6H PRN Pain 08/22/22 08/22/22 08/15/22 History ibuprofen 800 mg tablet 800 mg PO TID PRN Pain 08/22/22 08/22/22 08/15/22 History meclizine 25 mg tablet 25 mg PO BID PRN dizziness #14 tabs 08/22/22 08/22/22 Unknown Rx paroxetine HCl 40 mg tablet 40 mg PO BEDTIME 08/22/22 08/22/22 08/22/22 History went ahead and took Allergies Allergy/AdvReac Type Severity Reaction Status Date / Time Influenza Virus Vaccines Allergy Severe swelling, Verified 12/01/21 07:34 rash Latex, Natural Rubber Allergy Severe redness, Verified 12/01/21 07:34 swelling, itching Current Medications Generic Name Dose Route Start Last Admin Trade Name Freq PRN Reason Stop Dose Admin Acetaminophen 1,000 mg 08/22/22 18:20 08/24/22 17:34 Acetaminophen 500 Mg Tablet PO 1,000 mg Q6H PRN Administration Pain Diphenhydramine HCl 25 mg 08/22/22 23:09 08/25/22 13:14 Diphenhydramine 25 Mg Capsule PO 25 mg Q4H PRN Administration ITCHING Enoxaparin Sodium 40 mg 08/22/22 21:00 08/24/22 20:57 Enoxaparin 40 Mg/0.4 Ml Syringe SUBCUT 40 mg Q24H BARNEY Administration Ceftriaxone Sodium 2,000 mg/ 50 mls @ 100 mls/hr 08/24/22 14:00 08/25/22 15:01 Sodium Chloride IV Infused Q12H BARNEY Infusion Protocol Meclizine HCl 25 mg 08/22/22 18:20 08/23/22 16:02 Meclizine 25 Mg Tablet PO 25 mg BID PRN Administration dizziness Morphine Sulfate 1 mg 08/22/22 18:20 08/25/22 10:28 Morphine 4 Mg/Ml Sdv 1 Ml IVP 1 mg Q4H PRN Administration SEVERE PAIN Non-Formulary Medication 1 tab 08/23/22 09:00 08/25/22 08:37 Pnv Cmb#95-Ferrous Fumarate-Fa [ Multivitamins] PO Not Given DAILY BARNEY Ondansetron HCl 4 mg 08/22/22 18:20 08/25/22 13:14 Ondansetron 2 Mg/Ml Sdv 2 Ml IVP 4 mg Q8H PRN Administration vomiting, or N/V if npo Pantoprazole Sodium 40 mg 08/22/22 19:00 08/24/22 20:56 Pantoprazole 40 Mg Sdv IVP 40 mg Q24H BARNEY Administration Paroxetine HCl 40 mg 08/22/22 21:00 08/24/22 20:57 Paroxetine 20 Mg Tablet PO 40 mg BEDTIME BARNEY Administration Tramadol HCl 50 mg 08/24/22 10:15 08/25/22 08:37 Tramadol 50 Mg Tablet PO 50 mg DAILY BARNEY Administration PFSH Acute PFSH: Medical History No pertinent past medical history neg hx: hypertension, diabetes, thyroid, DVT/PE PCP: none Surgical History H/O dilation and curettage x1-- SAB H/O wisdom tooth extraction 2014 S/P cholecystectomy 2016 Family History Mother Diabetes Grandmother Breast cancer paternal, age onset 40's Father Diabetes Hypertension Hyperlipidemia Thyroid condition Grandfather Heart disease paternal Family/Other Uterine cancer maternal aunt, age onset 30's Ovarian cancer maternal aunt, age onset 30's Denies family history of Colon cancer Clotting disorder Anesthesia complication Bleeding disorder Stroke Social History Smoking and tobacco status: never smoked Alcohol intake: never Substance/Drug Use: never Female Reproductive History: Date of last menstrual period: 01/16/21 Vitals/I&O/Wt Last Vital Signs Temp 98.4 F 08/25/22 16:00 Pulse 66 08/25/22 16:00 Resp 18 08/25/22 16:00 BP 112/74 08/25/22 16:00 Pulse Ox 97 08/25/22 16:00 O2 Del Method 08/25/22 16:00 08/25/22 08/25/22 08/25/22 06:59 14:59 22:59 Intake Total 500 / 1146 0 / 0 380 / 380 Balance 500 / 1146 0 / 0 380 / 380 Weight last 48 hrs Weight 194 lb Physical Exam Narrative: GENERAL: The patient was well-nourished with a healthy appearance and appropriately groomed. MENTAL STATUS: Orientation was full to 10 of 10 questions of orientation. Speech was fluent without word hesitation. No difficulty following a complex command. The affect was euthymic. Judgment was good. CRANIAL NERVES: Visual acuity was intact to reading small print. Visual menon were full to confrontation, direct and consensual. Extraocular movements were full without nystagmus. Both slow pursuit and saccadic eye movements were normal. PERRLA. Face was symmetric at rest and with grimace. Facial sensation was intact in all three distributions of the fifth cranial nerve bilaterally to touch. Hearing was intact to soft spoken voice.. Tongue and palate were midline at rest and with protrusion of the tongue and elevation of the palate. Shoulders were symmetric at rest and with shoulder shrug. MOTOR: There was no drift of the extended arms. Fine movements in the hands were rapid and symmetric. Toe tapping was rapid and symmetric. Power was 5/5 in all the muscles of all four extremities tested individually. Bulk and tone were normal. SENSATION: Pin, touch, vibration and proprioception were intact in the four extremities distally. COORDINATION: [id number], [id number] and rapid alternating movements were performed smoothly without evidence of tremor or ataxia. Stance was stable with the eyes open, as well as the eyes closed. DEEP TENDON REFLEXES: 2/4 throughout. GAIT: She was able to walk back and forth in the room. She can walk on tiptoes and heels. HEENT: Neck was supple. I could not find any tender spots over the base of the skull or cervical spine. She can touch her chin to her chest. CHEST: Clear to auscultation. CARDIOVASCULAR: The heart sounds were normal without murmur or gallop. Regular rate and rhythm. EXTREMITIES: There was no edema or cyanosis. The skin was unremarkable. The spine exhibited normal thoracic kyphosis and normal lumbar lordosis without deformities. Data 08/25/22 05:20 08/25/22 05:20 Micro: Microbiology 08/22/22 16:55 CSF Culture - Preliminary Cerebrospinal Fluid A&P Assessment and plan (1) Headache: 32-year-old woman who developed severe headache after stepping down suddenly from a chair, sudden onset of the worst headache of her life. She was aggressively worked up and there was no sign of aneurysm. CSF was acellular but then the Gram stain suggested an organism and culture of CSF reported strep viridans. 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 I talked with the patient about discontinuing antibiotics versus continuing. She and her would like to stop antibiotic therapy and I would be comfortable to watch her as an outpatient if she makes a decision to do that. (2) Meningitis: Coding Level of Care Code Acute [facility] for [facility] Diagnoses Headache R51.9 Meningitis G03.9
[2022-08-25] MEDS: ketorolac 10 mg Tablet PO (19:22)
--- NOTE | 2022-08-26 01:46 | PC.NURSE ---
at beginning of shift pt stated not planning on staying the night, just waiting to see what Dr. Vargas has to say, per Dr. Vargas, pt agreed to stay the night and just needs a PICC line put in to get ABT at home, nurse visited with pt and patient verbalized not sure if she is staying the night, waiting to speak with house sup, refused all meds stating that she does not have any headaches anymore and no nausea and feels that her body had been subjected to too many medications and wants to detox her system. pt continue to refuse 0200 ABT, stated I actually ripped my IV out, well it got caught when I was going to bed , nurse asked if patient wants another IV put in and pt stated no theres no need, they will put a PICC line in the morning anyways if I'm still here, so no need to do that .
[2022-08-26 04:00] VITALS: BP 100/66; PULSE 70; RESP 17; TEMP 36.8; O2SAT 94
--- NOTE | 2022-08-26 06:37 | PC.NURSE ---
pt refused 399 labs
[2022-08-26 08:00] VITALS: BP 100/65; PULSE 78; RESP 14; TEMP 37; O2SAT 98
--- NOTE | 2022-08-26 10:10 | P.DS_ITS ---
Discharge Providers Date of Admission: 08/22/22 17:33 Date of Discharge: August 26, 2022 Attending Provider at Admission: Aquiles Darden MD Attending Provider at Discharge: Omer Escobedo MD Primary Care Provider: Damien Loo MD Diagnoses at Discharge Discharge Diagnosis (1) Headache: Status: Acute (2) Meningitis: Status: Acute Reason for Visit Reason for Visit: abnormal labs Hospital Course Hospital Course 32-year-old female with no significant past medical history was admitted with chief complaint of worst headache of her life, altered mental status, photophobia, as well as syncopal episode. She was initially admitted for the management of meningitis. CSF analysis: Has not shown any pertinent cell count, CSF culture: Has grown strep viridans in broth, CSF bacterial antigen panel: Was negative, Neisseria meningitidis was negative, CT head CTA head and neck: Was unremarkable: CTA head and neck has not shown any aneurysm, MRI head: Negative, MRV head did not showed any dural sinus thrombosis, patient was afebrile throughout hospital stay, Kernig's?and Brudzinski was negative (though both the signs are not very specific test, can be absent even in the presence of mening itis), chlamydia and nisseria, ROBE was negative, MRSA PCR was negative, blood culture was negative, CSF cryptococcal antigen was negative, serum RPR was negative,patient was afebrile through hospital stay, she was alert awake oriented*3, though she continued to complain of bandlike headache,7/10 in severity. She was kept on IV antibiotics to cover for meningitis, neurology and infectious disease was on board, patient was given choice of going home on IV antibiotics for total of 14-day course, to cover her up for possible meningitis, given her typical symptoms, neurology was of the opinion that she can be monitored off antibiotics also, it was decided not to continue with antibiotics for now, and monitor her. Strep viridans group in broth is likely being considered as contaminant.For her headache,D.H.E. 45 protocol: Did not responded well to it, started having blurred vision, was extremely nauseous. It was discontinued, she was continued on NSAID opioids, at the time of discharge head ache she still has headache, though not very severe, and has been asked to use ibuprofen as well as Tylenol as needed. Overall patient seems to have responded well to above medical management and is currently being discharged in stable condition to home she will continue to follow primary care physician as well as PCP as outpatient. Physical Exam Const: COMMON NORMALS: patient oriented x3 HENMT: COMMON NORMALS: normocephalic, atraumatic, hearing grossly normal bilaterally and external ears normal HEAD & SCALP: normocephalic and atraumatic EXTERNAL EAR: Yes external ears normal Eye: COMMON NORMALS: no scleral icterus GENERAL EYE: appearance normal, both eyes and all related structures Resp: COMMON NORMALS: normal respiratory effort, No retractions, No use of accessory muscles and clear to auscultation bilaterally EFFORT & INSPECTION: Yes symmetric chest movement AUSCULTATION: clear to auscultation bilaterally Cardio: COMMON NORMALS: regular rate, regular rhythm, S1 normal heart sound present, S2 normal heart sound present, No gallops present (Cardio), No murmurs present (Cardio), No rub (Cardio) and Peripheral pulses 2+ throughout RATE: regular rate RHYTHM: regular rhythm HEART SOUNDS: S1 normal heart sound present and S2 normal heart sound present PERIPHERAL PULSES: Peripheral pulses 2+ throughout GI: COMMON NORMALS: Normal to inspection, nondistended, normoactive bowel sounds present, Soft to palpation, non-tender, No hepatosplenomegaly present and no masses AUSCULTATION: Yes normoactive bowel sounds PALPATION: Yes Soft to palpation and Yes No hepatosplenomegaly present RECTAL EXAM: deferred Extremity: COMMON NORMALS: no clubbing, cyanosis or edema and no pedal edema Neuro: COMMON NORMALS: patient oriented x3 Discharge Data Studies Completed and Pending Completed Studies During Hospitalization Category Date Time Status XR chest 1V portable [id number] Stat Exams 08/22/22 14:32 Completed MR head wo con* [id number] Stat MRI 08/22/22 15:40 [place] [id number] Routine MRI 08/25/22 10:51 Completed Pending at discharge Category Date Time Status BMP [Basic Metabolic Panel] AM LABS Lab 08/26/22 04:00 Ordered Blood Culture Stat Lab 08/22/22 14:55 Results C DIFF [Clostridioides Difficile PCR] Routine Lab 08/22/22 14:51 Uncollected CBC Auto Diff [Complete Blood Count w/Auto] AM LABS Lab 08/26/22 04:00 Ordered CSF Culture Stat Lab 08/22/22 16:55 Results Enteric Bacterial Panel by PCR Routine Lab 08/22/22 18:57 Uncollected Francisella Tularensis DA Stat Lab 08/22/22 16:55 Received Herpes Simplex Virus DNA Stat Lab 08/22/22 16:55 Received Lymes Disease Antibodies CSF Stat Lab 08/22/22 16:55 Received Miscellaneous Test Routine Lab 08/22/22 16:55 Received Tick Panel Stat Lab 08/22/22 16:55 Results Radiology Impressions Chest X-Ray 08/22/22 14:32 IMPRESSION: No obvious acute consolidation. Suboptimal lung base assessment. Followup including lateral view may be obtained if clinically indicated. Head MRI 08/22/22 15:40 IMPRESSION: Exam is somewhat limited due to motion artifact. Fast imaging was performed. 1. No evidence of restricted diffusion to suggest acute ischemia. 2. No suspicious intracranial signal abnormalities considering motion artifact. 3. No hemosiderin on susceptibly weighted images. 4. No hydrocephalus or mass effect. 5. No other suspicious findings. Laboratory Results WBC 7.7 10^3/uL (4.0-10.0) 08/25/22 05:20 RBC 4.23 10^6/uL (4.1-5.3) 08/25/22 05:20 Hgb 10.9 g/dL (11.5-15.3) L 08/25/22 05:20 Hct 35.0 % (37.0-47.0) L 08/25/22 05:20 MCV 82.7 fl (81-99) 08/25/22 05:20 MCH 25.8 pg (28.0-34.0) L 08/25/22 05:20 MCHC 31.1 g/dL (30.0-36.0) 08/25/22 05:20 RDW 13.8 % (12.1-15.1) 08/25/22 05:20 Plt Count 254 10^3/cmm (130-400) 08/25/22 05:20 MPV 10.2 fL (7.4-10.4) 08/25/22 05:20 Neut % (Auto) 59.3 % 08/25/22 05:20 Lymph % (Auto) 28.0 % 08/25/22 05:20 [place] % (Auto) 9.0 % 08/25/22 05:20 Eos % (Auto) 3.0 % 08/25/22 05:20 Baso % (Auto) 0.4 % 08/25/22 05:20 Neut # (Auto) 4.56 10^3/uL (1.8-7.7) 08/25/22 05:20 Lymph # (Auto) 2.2 10^3/uL (0.8-4.8) 08/25/22 05:20 [place] # (Auto) 0.7 10^3/uL (0.2-0.9) 08/25/22 05:20 Eos # (Auto) 0.2 10^3/uL (0.0-0.8) 08/25/22 05:20 Baso # (Auto) 0.0 10^3/uL (0.0-0.1) 08/25/22 05:20 Nucleated RBC % (auto) 0 % 08/25/22 05:20 Nucleated RBCs # 0.0 /100WBC 08/25/22 05:20 ESR 5 mm/hr (0-15) 08/22/22 14:55 Sodium 138 mmol/L (136-145) 08/25/22 05:20 Potassium 3.8 mmol/L (3.5-5.1) 08/25/22 05:20 Chloride 104 mmol/L (98-107) 08/25/22 05:20 Carbon Dioxide 26 mmol/L (22-29) 08/25/22 05:20 Anion Gap 11.8 (5-19) 08/25/22 05:20 BUN 9 mg/dL (6-20) 08/25/22 05:20 Creatinine 0.6 mg/dL (0.5-0.9) 08/25/22 05:20 GFR Calculation 117.4 mL/min (90-130) 08/25/22 05:20 Glucose 110 mg/dL (65-115) 08/25/22 05:20 Estimat Average Glucose 103 08/23/22 05:00 Hemoglobin A1c 5.2 % (4.0-6.0) 08/23/22 05:00 Calculated Osmolality 285 mOsm/kg (285-295) 08/25/22 05:20 Calcium 8.6 mg/dL (8.5-10.5) 08/25/22 05:20 Total Bilirubin 0.2 mg/dL (0.15-1.2) 08/25/22 05:20 AST 33 U/L (0-32) H 08/25/22 05:20 ALT 39 U/L (0-33) H 08/25/22 05:20 Alkaline Phosphatase 108 U/L (35-105) H 08/25/22 05:20 Troponin T Baseline 6 ng/L (0-10) 08/23/22 15:00 Troponin T 120 Minute 6.00 ng/L (0-10) 08/23/22 17:00 Delta Troponin T 0 ABS# (0-10) 08/23/22 17:00 Troponin T Hi Sens 6Hr 6.00 ng/L (0-10) 08/23/22 20:57 Troponin T Hi Sens 6Hr Delta 0 ng/L (0-12) 08/23/22 20:57 C-Reactive Protein 13.0 mg/L (0.0-4.9) H 08/22/22 14:55 Total Protein 6.3 g/dL (6.6-8.7) L 08/25/22 05:20 Albumin 3.5 g/dL (3.5-5.2) 08/25/22 05:20 Globulin 2.8 g/dL (1.3-4.6) 08/25/22 05:20 Triglycerides 119 mg/dL (0-150) 08/23/22 05:00 Cholesterol 156 mg/dL (0-200) 08/23/22 05:00 LDL Cholesterol, Calc 97 mg/dL (50-129) 08/23/22 05:00 HDL Cholesterol 35 mg/dL (60-100) L 08/23/22 05:00 LDL/HDL Ratio 2.77 RATIO (0.00-3.22) 08/23/22 05:00 Cholesterol/HDL Ratio 4.46 mg/dL (0.0-4.40) H 08/23/22 05:00 Procalcitonin 0.02 ng/mL (0-0.5) 08/22/22 14:55 TSH 2.87 uIU/mL (0.27-4.20) 08/23/22 05:00 Urine Color Yellow (Yellow) 08/22/22 15:50 Urine Appearance Clear (CLEAR) 08/22/22 15:50 Urine pH 5 (5-7) 08/22/22 15:50 Ur Specific [place] 1.015 (1.005-1.030) 08/22/22 15:50 Urine Protein Neg (Negative) 08/22/22 15:50 Urine Glucose (UA) Norm (Normal) 08/22/22 15:50 Urine Ketones Negative (Negative) 08/22/22 15:50 Urine Blood Neg (Negative) 08/22/22 15:50 Urine Nitrate Negative (Negative) 08/22/22 15:50 Urine Bilirubin Neg (Negative) 08/22/22 15:50 Urine Urobilinogen Norm mg/dL (Negative) 08/22/22 15:50 Ur Leukocyte Esterase Negative (Negative) 08/22/22 15:50 Nasal Influ A H1 2009 PCR Not detected (NOT DETECT) 08/22/22 23:30 Vancomycin Trough 32.1 ug/mL (10-15) H* 08/23/22 15:00 RPR Nonreactive (Nonreactive) 08/22/22 14:55 Adenovirus (PCR) Not detected (NOT DETECT) 08/22/22 23:30 Lyme Ab (Western Blot) <0.90 index 08/22/22 16:55 C. pneumoniae DNA (PCR) Not detected (NOT DETECT) 08/22/22 23:30 Coronavirus 229E (PCR) Not detected (NOT DETECT) 08/22/22 23:30 Hepatitis A IgM Ab Non-reactive (Nonreactive) 08/22/22 14:55 Hep Bs Antigen Non-reactive (Nonreactive) 08/22/22 14:55 Hep B Core IgM Ab Non-reactive (Nonreactive) 08/22/22 14:55 Hepatitis C Antibody Non-reactive (Nonreactive) 08/22/22 14:55 HSV I IgG Ab 47.30 index H 08/23/22 16:55 HSV II IgG <0.90 index 08/23/22 16:55 HIV 1&2 Ab & HIV 1 Ag Non-reactive (Non-Reactiv) 08/22/22 14:55 HIV 1&2 Antibody Non-reactive (Non-Reactiv) 08/22/22 14:55 Human Metapneumovir PCR Not detected (NOT DETECT) 08/22/22 23:30 Influenza A (H1) PCR Not detected (NOT DETECT) 08/22/22 23:30 Influenza A (H3) PCR Not detected (NOT DETECT) 08/22/22 23:30 Influenza Type A (PCR) Not detected (NOT DETECT) 08/22/22 23:30 Influenza Type B (PCR) Not detected (NOT DETECT) 08/22/22 23:30 M. pneumoniae (PCR) Not detected (NOT DETECT) 08/22/22 23:30 Parainfluenza 1 (PCR) Not detected (NOT DETECT) 08/22/22 23:30 Parainfluenza 2 (PCR) Not detected (NOT DETECT) 08/22/22 23:30 Parainfluenza 3 (PCR) Not detected (NOT DETECT) 08/22/22 23:30 Parainfluenza 4 (PCR) Not detected (NOT DETECT) 08/22/22 23:30 RSV Type A (PCR) Not detected (NOT DETECT) 08/22/22 23:30 RSV Type B (PCR) Not detected (NOT DETECT) 08/22/22 23:30 Entero/Rhino (PCR) Not detected (NOT DETECT) 08/22/22 23:30 SARS-CoV-2 (PCR) Not detected (NOT DETECT) 08/22/22 23:30 Vitals Last Vital Signs Temp 98.6 F 08/26/22 08:00 Pulse 78 08/26/22 08:00 Resp 14 08/26/22 08:00 BP 100/65 08/26/22 08:00 Pulse Ox 98 08/26/22 08:00 O2 Del Method 08/26/22 08:00 Discharge Plan Discharge Patient Disposition: Home Condition: Stable Prescriptions: Continued PNV cmb#95-ferrous fumarate-FA [ Multivitamins] 28 mg iron- 800 mcg tablet 1 tab PO DAILY paroxetine HCl 40 mg tablet 40 mg PO BEDTIME acetaminophen 500 mg Tablet 1,000 mg PO Q6H PRN (Reason: Pain) 7 Days Qty: 20 0RF meclizine 25 mg tablet 25 mg PO BID PRN (Reason: dizziness) Qty: 14 0RF Changed ibuprofen 800 mg tablet 800 mg PO TID PRN (Reason: Pain) 14 Days Qty: 20 0RF Discharge Orders: Discharge Order (Routine); Ordered 08/26/22 Ordered By: Omer Escobedo Referrals: Vanessa Vargas MD [Physician] - 08/28/22 11:15 am Monica Barkley FNP [Referring] - 09/02/22 11:15 am Patient Instructions: Acute Headache (GEN), Weakness (GEN), Opioid Safety Discharge Attestations Time Spent in Discharge Care*: greater than 30 min Quality Metrics Clinical Quality Measures [ No reported AMI, CVA or VTE this stay] Coding Level of Care Code Acute Chg FW DC note Diagnoses Headache R51.9 Meningitis G03.9
[2022-08-26 12:00] VITALS: BP 109/78; PULSE 72; RESP 16; TEMP 36.9; O2SAT 96
[2022-08-26 14:12] VITALS: BP 109/78; PULSE 72; RESP 16; TEMP 36.9; O2SAT 96
[2022-08-26 19:09] LABS: Lyme Disease AB (IGG),IBL NO BANDS DETECTED; Lyme Disease AB (IGM), IBL NO BANDS DETECTED
[2022-08-27 17:23] LABS: RMSF IGG NOT DETECTED; RMSF IGM NOT DETECTED
[2022-08-27 21:43] LABS: E. Chaffeensis AB IGG <1:64; E. Chaffeensis AB IGM <1:20
[2022-08-30 17:25] LABS: HSV 1 DNA NOT DETECTED; HSV 2 DNA NOT DETECTED; HSV Source CEREBROSPINAL FLUID
== END 2022-08-26 12:40 | disposition home or self-care (01) | DRG 99 ==
LOC: ER 16:11 → MEDSURG 17:35
PROVIDERS: Student in an Organized Health Care Education/Training Program; Admitting Provider Family Medicine; Emergency Provider Emergency Medicine; PCP Family Medicine; Visit Provider Internal Medicine
DX: G03.9 Meningitis, unspecified (principal)
CPT/HCPCS: 36415; 70544; 70551; 71045; 80048; 80053; 80061; 80074; 80202; 81003; 83036; 84145; 84443; 84484; 85025; 85651; 86000; 86140; 86403; 86592; 86617; 86618; 86653; 86666; 86695; 86696; 86735; 86757; 86788; 86789; 87040; 87070; 87075; 87205; 87327; 87486; 87491; 87530; 87581; 87591; 87633; 87641; 87806; 93005; 94664; 96365; 96367; 96372; 96375; 98960; 99285; C9113; J0133; J0692; J0696; J1110; J1170; J1200; J1650; J1885; J2270; J2405; J3370; J7040; J8597

== ENCOUNTER 2023-03-12 11:21 | Emergency (ER) | payer BC, MEDICAID, SELFPAY ==
[2023-03-12 11:37] VITALS: BP 122/84; PULSE 87; RESP 18; TEMP 36.8; O2SAT 97; BMI 34.7
[2023-03-12 12:50] LABS: Basophils % 0.4 %; Eosinophils # 0.1 10^3/uL (0.0-0.8); Eosinophils % 0.5 %; Hematocrit 40.3 % (37.0-47.0); Hemoglobin 12.4 g/dL (11.5-15.3); Lymphocytes # 2.5 10^3/uL (0.8-4.8); Lymphocytes % 27.4 %; Mean Corpuscular HGB Conc 30.8 g/dL (30.0-36.0); Mean Corpuscular Hemoglobin 25.1 pg (28.0-34.0); Mean Corpuscular Volume 81.4 fl (81-99); Monocytes # 0.5 10^3/uL (0.2-0.9); Monocytes % 5.4 %; Neutrophils # 6.01 10^3/uL (1.8-7.7); Neutrophils % 66.1 %; Nucleated Red Blood Cells % 0 %; Platelet Count 283 10^3/cmm (130-400); Red Blood Count 4.95 10^6/uL (4.1-5.3); Red Cell Distribution Width 14.1 % (12.1-15.1); White Blood Count 9.1 10^3/uL (4.0-10.0)
--- NOTE | 2023-03-12 13:02 | CT_ITS ---
WS: [id number] CT ABDOMEN PELVIS TECHNIQUE: Contrast-enhanced CT of the abdomen and pelvis with coronal and sagittal reformatted image s. CLINICAL INFORMATION: abd pain COMPARISON: 2010 DLP: 832.[address] scans at [facility] use at least one of these dose optimization techniques: automated e xposure control; mA and/or kV adjustment per patient size (includes targeted exams where dose is matc hed to clinical indication); or iterative reconstruction. FINDINGS: Lung bases are well aerated. Mild hepatomegaly with diffuse fatty infiltration. Cholecystectomy. Norm al portal vein and splenic vein. Normal pancreatic parenchymal enhancement. Normal spleen. Tiny esoph ageal hiatal hernia. Retroverted and retroflexed uterus. Normal caliber abdominal aorta. Celiac and SMA are patent. Adrenal glands are normal. No hydronephrosis in either kidney. Normal sigmoid colon. Appendix is difficult to visualize but no evidence of acute appendicitis. Theresa l terminal ileum. Multifollicular ovaries bilaterally. LEFT ovarian cyst measuring 2.1 CM. No significant free fluid in the cul-de-sac. Thickened endometrium presumably physiologic. Tiny fat-containing umbilical hernia. Normal lumbar spine. CT/CT abdomen pelvis w con* [id number] IMPRESSION: 1. No hydronephrosis in either kidney. 2. Appendix not definitely visualized but no evidence of acute appendicitis. 3. Retroverted and retroflexed uterus. 4. LEFT ovarian cyst measuring 2.5 x 2.1 CCM. 5. Prior cholecystectomy. 6. Mild hepatomegaly diffuse fatty infiltration.
--- NOTE | 2023-03-12 13:10 | W.ED.ABDPA2 ---
HPI - Abdominal Pain General: Chief Complaint: Abdominal Pain Stated Complaint: right side abd pain, n/v Time Seen by Provider: 03/12/23 12:33 Source: patient Mode of arrival: ambulatory Limitations: no limitations History of Present Illness: 32-year-old female states she been having sharp right-sided abdominal pain since Thursday. She states pain is currently 7 out of 10 she denies any vomiting or diarrhea states pain is worse with movement improved with rest. Associated Symptoms: Denies chills, diarrhea, dysuria, fever(s), nausea and vomiting Review of Systems Const: Denies: fever(s), chills, body aches or change in appetite Eyes: Denies: blurry vision or eye discomfort ENMT: Denies: throat pain or dental pain Card: Denies: chest pain Resp: Denies: dyspnea GI: Reports: abdominal pain; Denies: nausea, vomiting or diarrhea : Denies: dysuria Musc: Denies: neck pain or back pain Skin/Breast: Denies: rash Neuro: Denies: headache(s) Psych: Denies: depression PFSH ED PFSH: Medical History Headache Meningitis No pertinent past medical history neg hx: hypertension, diabetes, thyroid, DVT/PE PCP: none Surgical History H/O dilation and curettage x1-- SAB H/O wisdom tooth extraction 2014 S/P cholecystectomy 2017 Family History Mother Diabetes Grandmother Breast cancer paternal, age onset 40's Father Diabetes Hypertension Hyperlipidemia Thyroid condition Grandfather Heart disease paternal Family/Other Uterine cancer maternal aunt, age onset 30's Ovarian cancer maternal aunt, age onset 30's Denies family history of Colon cancer Clotting disorder Anesthesia complication Bleeding disorder Stroke Social History Smoking and tobacco status: never smoked Alcohol intake: never Substance/Drug Use: never Physical Exam Const: COMMON NORMALS: no acute distress, patient oriented x3 and healthy appearing HENMT: COMMON NORMALS: normocephalic and atraumatic HEAD & SCALP: normocephalic and atraumatic Eye: COMMON NORMALS: conjunctivae normal CONJUNCTIVA: Yes conjunctivae normal Neck/C-Spine: COMMON NORMALS: full ROM and supple Chest: COMMONS NORMALS: normal inspection of the chest and normal palpation of entire chest wall Resp: COMMON NORMALS: normal respiratory effort, No retractions, No use of accessory muscles and clear to auscultation bilaterally AUSCULTATION: clear to auscultation bilaterally Cardio: COMMON NORMALS: regular rate, regular rhythm and No murmurs present (Cardio) RATE: regular rate RHYTHM: regular rhythm GI: COMMON NORMALS: Normal to inspection, nondistended, normoactive bowel sounds present, Soft to palpation and no masses PALPATION: Yes Soft to palpation and Yes Tenderness to palpation present (GI) Details: RLQ Extremity: COMMON NORMALS: normal to inspection and full ROM Neuro: COMMON NORMALS: patient oriented x3, moves all extremities and no focal motor deficits Psych: COMMON NORMALS: mental status grossly normal, Normal thought process present and cooperative THOUGHT PROCESS: Normal thought process present Skin: COMMON NORMALS: no rashes or lesions noted and no wounds GENERAL SKIN EXAM: no rashes or lesions noted Course Vital Signs: Vital signs: Vital Signs Temperature 98.3 F 03/12/23 11:37 Pulse Rate 89 03/12/23 13:24 Respiratory Rate 18 03/12/23 13:24 Blood Pressure 122/84 03/12/23 11:37 Pulse Oximetry 97 03/12/23 13:24 Oxygen Delivery Me thod Room Air 03/12/23 13:24 MDM - Abdominal Pain Medical Decision Making Patient presents here with abdominal pain and blood work here is normal CT does show ovarian cyst her pain is much improved she is stable for discharge to follow-up with PCP and return if worsening Lab Data 03/12/23 12:43 03/12/23 12:58 Labs/Radiology: Radiology Impressions Abdomen/Pelvis CT 03/12/23 13:02 IMPRESSION: 1. No hydronephrosis in either kidney. 2. Appendix not definitely visualized but no evidence of acute appendicitis. 3. Retroverted and retroflexed uterus. 4. LEFT ovarian cyst measuring 2.5 x 2.1 CCM. 5. Prior cholecystectomy. 6. Mild hepatomegaly diffuse fatty infiltration. Laboratory Results WBC 9.1 10^3/uL (4.0-10.0) 03/12/23 12:43 RBC 4.95 10^6/uL (4.1-5.3) 03/12/23 12:43 Hgb 12.4 g/dL (11.5-15.3) 03/12/23 12:43 Hct 40.3 % (37.0-47.0) 03/12/23 12:43 MCV 81.4 fl (81-99) 03/12/23 12:43 MCH 25.1 pg (28.0-34.0) L 03/12/23 12:43 MCHC 30.8 g/dL (30.0-36.0) 03/12/23 12:43 RDW 14.1 % (12.1-15.1) 03/12/23 12:43 Plt Count 283 10^3/cmm (130-400) 03/12/23 12:43 MPV 10.0 fL (7.4-10.4) 03/12/23 12:43 Neut % (Auto) 66.1 % 03/12/23 12:43 Lymph % (Auto) 27.4 % 03/12/23 12:43 Alcorn % (Auto) 5.4 % 03/12/23 12:43 Eos % (Auto) 0.5 % 03/12/23 12:43 Baso % (Auto) 0.4 % 03/12/23 12:43 Neut # (Auto) 6.01 10^3/uL (1.8-7.7) 03/12/23 12:43 Lymph # (Auto) 2.5 10^3/uL (0.8-4.8) 03/12/23 12:43 Alcorn # (Auto) 0.5 10^3/uL (0.2-0.9) 03/12/23 12:43 Eos # (Auto) 0.1 10^3/uL (0.0-0.8) 03/12/23 12:43 Baso # (Auto) 0.0 10^3/uL (0.0-0.1) 03/12/23 12:43 Nucleated RBC % (auto) 0 % 03/12/23 12:43 Nucleated RBCs # 0.0 /100WBC 03/12/23 12:43 Sodium 139 mmol/L (136-145) 03/12/23 12:58 Potassium 4.1 mmol/L (3.5-5.1) 03/12/23 12:58 Chloride 104 mmol/L (98-107) 03/12/23 12:58 Carbon Dioxide 25 mmol/L (22-29) 03/12/23 12:58 Anion Gap 14.1 (5-19) 03/12/23 12:58 BUN 6 mg/dL (6-20) 03/12/23 12:58 Creatinine 0.6 mg/dL (0.5-0.9) 03/12/23 12:58 GFR Calculation 117.4 mL/min (90-130) 03/12/23 12:58 Glucose 105 mg/dL (65-115) 03/12/23 12:58 Calculated Osmolality 286 mOsm/kg (285-295) 03/12/23 12:58 Calcium 9.2 mg/dL (8.5-10.5) 03/12/23 12:58 Total Bilirubin 0.4 mg/dL (0.15-1.2) 03/12/23 12:58 AST 22 U/L (0-32) 03/12/23 12:58 ALT 29 U/L (0-33) 03/12/23 12:58 Alkaline Phosphatase 108 U/L (35-105) H 03/12/23 12:58 Total Protein 6.9 g/dL (6.6-8.7) 03/12/23 12:58 Albumin 4.0 g/dL (3.5-5.2) 03/12/23 12:58 Globulin 2.9 g/dL (1.3-4.6) 03/12/23 12:58 Lipase 22 U/L (13-60) 03/12/23 12:58 HCG, Qual Negative (Negative) 03/12/23 12:58 Discharge Plan Discharge Patient Disposition: Home Clinical Impression: Abdominal pain, Ovarian cyst Condition: Stable Prescriptions: New hydrocodone-acetaminophen 5-325 mg tablet 1 tab PO Q6H PRN (Reason: pain) Qty: 14 0RF ondansetron 4 mg tablet,disintegrating 4 mg PO Q6H PRN (Reason: nausea and vomiting) Qty: 14 0RF No Action PNV cmb#95-ferrous fumarate-FA [ Multivitamins] 28 mg iron- 800 mcg tablet 1 tab PO DAILY paroxetine HCl 40 mg tablet 40 mg PO BEDTIME ibuprofen 800 mg tablet 800 mg PO TID PRN (Reason: Pain) 14 Days Qty: 20 0RF acetaminophen 500 mg Tablet 1,000 mg PO Q6H PRN (Reason: Pain) 7 Days Qty: 20 0RF meclizine 25 mg tablet 25 mg PO BID PRN (Reason: dizziness) Qty: 14 0RF Discharge Orders: Discharge ED (Routine); Ordered 03/12/23 Ordered By: Eagle Salgado Discharge Diet: Advance as tolerated Discharge Activity: Resume usual activity Patient Instructions: Ovarian Cyst (ED), Abdominal Pain (ED), Opioid Safety Coding Level of Care Code ED Crime Specialist for Filemon Negrete
[2023-03-12] MEDS: morphine 4 mg/mL SDV 1 mL IVP (13:20)
[2023-03-12] MEDS: ondansetron 2 mg/ML SDV 2 mL 4 MG IVP (13:20)
[2023-03-12] MEDS: sodium chloride 0.9% 1,000 ML 999 ML IV (13:21)
[2023-03-12 13:24] VITALS: PULSE 89; RESP 18; O2SAT 97
[2023-03-12 13:37] LABS: HCG, Serum Qual Negative (Negative)
[2023-03-12 13:42] LABS: Alanine Aminotransferase 29 U/L (0-33); Alkaline Phosphatase 108 U/L (35-105); Anion Gap 14.1 (5-19); Aspartate Amino Transferase 22 U/L (0-32); Blood Urea Nitrogen 6 mg/dL (6-20); Calcium 9.2 mg/dL (8.5-10.5); Carbon Dioxide 25 mmol/L (22-29); Chloride 104 mmol/L (98-107); Globulin 2.9 g/dL (1.3-4.6); Glomerular Filtration Rate 117.4 mL/min (90-130); Glucose 105 mg/dL (65-115); Lipase 22 U/L (13-60); Osmolality Calculated 286 mOsm/kg (285-295); Potassium 4.1 mmol/L (3.5-5.1); Sodium 139 mmol/L (136-145); Total Bilirubin 0.4 mg/dL (0.15-1.2); Total Protein 6.9 g/dL (6.6-8.7)
[2023-03-12] MEDS: iohexol 350 mg/mL 500 mL Btl (per mL) IV (14:01)
== END 2023-03-12 14:50 | disposition home or self-care (01) ==
PROVIDERS: Emergency Provider Emergency Medicine
DX: N83.202 Unspecified ovarian cyst, left side (principal)
CPT/HCPCS: 36415; 74177; 80053; 83690; 84703; 85025; 96374; 96375; 99285; J2270; J2405; J7030; Q9967

== ENCOUNTER 2024-02-19 15:25 | Emergency (ER) | payer BC, MEDICAID, SELFPAY ==
[2024-02-19 15:27] VITALS: BP 118/72; PULSE 115; RESP 20; TEMP 36.7; O2SAT 98
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
--- NOTE | 2024-02-19 15:31 | ECG_ITS ---
[facility] Test Date: 2024-02-19 Pat Name: Esperanza Moon Department: Room: Gender: Female Stay Cutter: : 1990 Requested By: Tasneem Trejo Order Number: [id number] Jeri MD: Charlee Partida M.D. Measurements Intervals [place] Rate: 126 P: 64 VT: 96 QRS: 76 QRSD: 82 T: 11 QT: 327 QTc: 475 Interpretive Statements SINUS TACHYCARDIA WITH SHORT VT INTERVAL NONSPECIFIC ST & T-WAVE ABNORMALITY ABNORMAL RHYTHM ECG Compared to ECG 08/23/2022 15:48:52 Short VT interval now present Sinus rhythm no longer present T-wave abnormality still present Electronically Signed On 02-19-2024 19:11:47 CDT by Charlee Partida M.D. [id number]
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
[2024-02-19 16:10] LABS: Alanine Aminotransferase 27 U/L (0-33); Albumin Level 3.8 g/dL (3.5-5.2); Alkaline Phosphatase 85 U/L (35-105); Aspartate Amino Transferase 26 U/L (0-32); Blood Urea Nitrogen 8 mg/dL (6-20); Calcium 8.8 mg/dL (8.5-10.5); Carbon Dioxide 22 mmol/L (22-29); Chloride 104 mmol/L (98-107); Creatinine Clr Calc Pharmacy 136.4572; Globulin 2.9 g/dL (1.3-4.6); Glomerular Filtration Rate 116.6 mL/min (90-130); Glucose 108 mg/dL (65-115); Lactic Sepsis W/Reflex 0.8 mmol/L (0.5-2.2); Osmolality Calculated 287 mOsm/kg (285-295); Sodium 139 mmol/L (136-145); Total Bilirubin 0.3 mg/dL (0.15-1.2); Total Protein 6.7 g/dL (6.6-8.7)
[2024-02-19] MEDS: iohexol 350 mg/mL 500 mL Btl (per mL) IV (16:13)
[2024-02-19 16:18] LABS: Anion Gap 16.7 (5-19); Potassium 3.7 mmol/L (3.5-5.1)
[2024-02-19 16:34] VITALS: PULSE 109; O2SAT 98
[2024-02-19 16:41] LABS: Basophils % 0.5 %; Eosinophils % 0.5 %; Hematocrit 30.9 % (36-47); Lymphocytes # 1.6 10^3/uL (0.8-4.8); Lymphocytes % 22.2 %; Mean Corpuscular HGB Conc 31.1 g/dL (30-55); Mean Corpuscular Hemoglobin 26.4 pg (27-33); Mean Corpuscular Volume 84.9 fl (85-98); Mean Platelet Volume 9.7 fL (7.4-10.4); Monocytes # 0.4 10^3/uL (0.2-0.9); Monocytes % 5.9 %; Neutrophils # 5.14 10^3/uL (1.8-7.7); Neutrophils % 70.6 %; Nucleated Red Blood Cells % 0 %; Platelet Count 267 10^3/cmm (157-399); Red Blood Count 3.64 10^6/uL (3.85-5.65); Red Cell Distribution Width 14.3 % (12.1-15.1); White Blood Count 7.29 10^3/uL (3.29-11.43)
[2024-02-19 17:36] VITALS: RESP 16; O2SAT 98
[2024-02-19] MEDS: HYDROmorphone 1 mg/mL INJ 1 mL IVP (17:36)
[2024-02-19] MEDS: ondansetron 2 mg/ML SDV 2 mL 4 MG IVP (17:37)
[2024-02-19] MEDS: ketorolac 30 mg/mL INJ IVP (17:37)
[2024-02-19 17:38] VITALS: BP 124/84; PULSE 99; O2SAT 100
[2024-02-19 18:17] VITALS: BP 105/70; O2SAT 98
[2024-02-19 18:18] VITALS: BP 105/70; O2SAT 98
== END 2024-02-19 18:29 | disposition home or self-care (01) ==
PROVIDERS: Emergency Provider Emergency Medicine
DX: S16.1XXA Strain of muscle, fascia and tendon at neck level, initial encounter (principal); S63.501A Unspecified sprain of right wrist, initial encounter; S93.401A Sprain of unspecified ligament of right ankle, initial encounter; S06.0XAA Concussion with loss of consciousness status unknown, initial encounter; R00.0 Tachycardia, unspecified; V89.2XXA Person injured in unspecified motor-vehicle accident, traffic, initial encounter
CPT/HCPCS: 36415; 70450; 71045; 71260; 72125; 72128; 72131; 72170; 73110; 73610; 74177; 80053; 83605; 85025; 93005; 96374; 96375; 99285; J1170; J1885; J2405; Q9967

== ENCOUNTER → 2024-03-01 08:06 | Outpatient (BNVA) | payer BC, MEDICAID, SELFPAY | PROVIDERS: Visit Provider Podiatrist Foot & Ankle Surgery | DX: S99.911A Unspecified injury of right ankle, initial encounter; X58.XXXA Exposure to other specified factors, initial encounter | CPT/HCPCS: 73610; 73630 ==

== ENCOUNTER 2024-03-23 11:00 | Outpatient (CLI) | payer BC, MEDICAID, SELFPAY ==
--- NOTE | 2024-03-23 11:00 | MR_ITS ---
WS: [id number] MRI RIGHT ANKLE WITHOUT CONTRAST. COMPARISON: Radiograph 03/01/2024 Multiplanar, multisequence imaging is performed without contrast. No marrow edema or acute fracture of the ankle. Normal Achilles tendon and plantar fascia. Interosseo us ligament is normal. Anterior and posterior tibiofibular ligaments are normal. Anterior and posteri or talofibular ligaments are normal. Normal deltoid and calcaneofibular ligament. There is a small am ount of fluid adjacent to the anterior talofibular ligament which may be a small ganglion. Small amou nt of edema along the anterior lateral talar dome. Peroneal brevis and longus tendons, the flexor digitorum, flexor hallucis longus and the posterior ti bialis tendons are normal. Anterior extensor tendons are normal. Seen only on the coronal T2 imaging through the midfoot is increased T2 signal between the proximal f irst and second metatarsals. This area is not included on the ankle MRI. MR/MR ankle RT wo con* [id number] IMPRESSION: 1. No fractures or marrow edema. 2. No joint effusion. 3. Small amount of soft tissue edema along the anterior lateral talar dome 4. Anterior talofibular ligament is normal. 5. Please note this MRI the ankle does not include the Lisfranc articulation. If further evaluation of the Lisfranc ligament is necessary MRI of the foot melchor uld be obtained.
== END 2024-03-23 11:01 | disposition home or self-care (01) ==
PROVIDERS: Visit Provider Podiatrist Foot & Ankle Surgery
DX: S93.326A Dislocation of tarsometatarsal joint of unspecified foot, initial encounter (principal); M47.899 Other spondylosis, site unspecified; V49.9XXA Car occupant (driver) (passenger) injured in unspecified traffic accident, initial encounter
CPT/HCPCS: 73721

== ENCOUNTER 2025-09-02 14:41 | Emergency (ER) | payer MEDICAID, SELFPAY ==
[2025-09-02 14:48] VITALS: BP 106/68; PULSE 97; RESP 16; TEMP 36.4; O2SAT 98; BMI 26.5
--- OUTSIDE RECORDS SUMMARY | 2025-09-02 14:48 | XMS_ITS | Clinical Summary ---
Author Organization [facility] Address [address] [place] [address] Care Team Providers Care Roll Examiner Name Role Phone Unavailable Primary Care Provider Unavailabl e Allergies Active Allergy Reactions Criticality Noted Date Comments Latex Swelling Low 04/22/2016 Medications vit-iron fumarate-fa (YONIS ) 28 mg iron- 800 mcg Tablet Take 1 Tablet by mouth daily. Active CALCIUM CARBONATE/VITAMI N D3 (CALCIUM + D ORAL) Take by mouth. Active FERROUS SULFATE, DRIED (IRON, DRIED, ORAL) Take by mouth. 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 Gender Identity Not on file Sexual Orientation Not on file Last Filed Vital Signs Vital Sign Reading Time Taken Comments Blood Pressure 116/66 04/22/2016 1:24 PM CDT Pulse - - Temperature 36.8 C (98.3 F) 04/22/2016 1:24 PM CDT Respiratory Rate 18 04/22/2016 1:24 PM CDT Oxygen Saturation 100% 04/22/2016 1:24 PM CDT Inhaled Oxygen Concentration - - Weight 80.7 kg (178 lb) 04/22/2016 12:39 PM CDT Height 157.5 cm (5' 2 ) 04/22/2016 12:39 PM CDT Body Mass Index 32.56 04/22/2016 12:39 PM CDT Plan of Treatment Health Maintenance Due Date Last Done Comments DTAP/TDAP/TD VACCINES (1 - Tdap) 2011 HEPATITIS B VACCINES (1 of 3 - 19+ 3-dose series) 03/09 HPV/Cotest (21-29) 2013 CERVICAL CANCER SCREENING 2022 HPV/Cotest (30-65) 2022 PAP SMEAR 2022 INFLUENZA VACCINE (#1) 2025 RSV VACCINE (60+ or ) (1 - 1-dose 75+ series) 2067 HPV VACCINES (No Doses Required) Completed Insurance [place]ICAID [place]
--- OUTSIDE RECORDS SUMMARY | 2025-09-02 14:48 | XMS_ITS | Clinical Summary ---
Author Organization [facility] Address [address] [facility] Attn: Epic Prelude ADT [place] [address] Care Team Providers Care Rejector Name Role Phone Unavailable Primary Care Provider Unavailabl e Allergies Active Allergy Reactions Criticality Noted Date Comments Latex Swelling Low 04/22/2016 Medications calcium carbonate/vitami n D3 (CALCIUM + D ORAL) Take by mouth. 04/22/2016 Active ferrous sulfate, dried (IRON, DRIED, ORAL) Take by mouth. 04/22/2016 Active vit-iron fumarate-fa (YONIS ) 28 mg iron- 800 mcg Tablet Take 1 Tablet by mouth daily. 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 Gender Identity Not on file Sexual Orientation Not on file Last Filed Vital Signs Vital Sign Reading Time Taken Comments Blood Pressure 116/66 04/22/2016 1:24 PM CDT Pulse - - Temperature 36.8 C (98.3 F) 04/22/2016 1:24 PM CDT Respiratory Rate 18 04/22/2016 1:24 PM CDT Oxygen Saturation - - Inhaled Oxygen Concentration - - Weight 80.7 kg (178 lb) 04/22/2016 12:39 PM CDT Height 157.5 cm (5' 2 ) 04/22/2016 12:39 PM CDT Body Mass Index 32.56 04/22/2016 12:39 PM CDT Plan of Treatment Upcoming Encounters Date Type Department Care Team (Late st Contact Info) Description 12/14/2025 2:00 PM CDT Office Visit [facility] Jeramy El Dias [address] [place] [address] Eboni Cardeans MD [address] [place] [address] Health Maintenance Due Date Last Done Comments [...]
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
--- OUTSIDE RECORDS SUMMARY | 2025-09-02 14:48 | XMS_ITS | Encounter Summary ---
Author Organization [facility] Address [address] [place] [address] Care Team Providers Care Customer Advisor Specialist Name Role Phone Unavailable Primary Care Provider Unavailabl e Encounter Details Date Type Department Care Team (Late st Contact Info) Description 05/20/2005 Outpatient Historical [facility] D[facility]atology- 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
--- OUTSIDE RECORDS SUMMARY | 2025-09-02 14:48 | XMS_ITS | Encounter Summary ---
Author Organization [facility] Address [address] [place] [address] Care Team Providers Care Skelp Processor Name Role Phone Unavailable Primary Care Provider Unavailabl e Encounter Details Date Type Department Care Team (Late st Contact Info) Description 04/09/2015 Lab [facility]quisition [facility] [place] [address] [place] [phone] Joni San D, DO [address] [place] [phone] Sick Social History Tobacco Use Types Packs/Day Years Used Date Smoking Tobacco: Never Assessed Comments Unknown Sex and Gender Information Value Date Recorded Sex Assigned at Not on file 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 Gender Identity Not on file Sexual Orientation Not on file documented as of this encounter Plan of Treatment Not on file documented as of this encounter Procedures Procedure Name Priority Date/Time Associated Diagnosis Comments CBC WITH DIFFERENTIAL Routine 04/09/2015 9:37 PM CDT Sick [ICD-9-CM] TSH Routine 04/09/2015 9:37 PM CDT Sick [ICD-9-CM] LIPID PANEL Routine 04/09/2015 9:37 PM CDT Sick [ICD-9-CM] COMPREHENSIVE METABOLIC PANEL Routine 04/09/2015 9:37 PM CDT Sick [ICD-9-CM] documented in this encounter Results * TSH (04/09/2015 9:37 PM CDT) TSH 3.91 0.30 - 4.80 uIU/mL 04/09/2015 10:28 PM CDT [facility] Blood Collection / Unknown 04/09/2015 9:37 PM CDT 04/09/2015 9:37 PM CDT us Joni D Spoon DO CHEMISTRY ORDERABLES Final Resu lt [facility] CLIA # [id number] [address] [place] [id number] * (ABNORMAL) LIPID PANEL (04/09/2015 9:37 PM CDT) [facility] CHOLESTEROL 147 <200 mg/dL 04/09/2015 10:28 PM CDT [facility] TRIGLYCERIDE 123 <150 mg/dL 04/09/2015 10:28 PM CDT [facility] HDL 39(L) 40 - 59 mg/dL 04/09/2015 10:[address] [facility] LDL CALCULATED 83 <100 mg/dL 04/09/2015 10:[address] [facility] NON-HDL CHOLESTEROL 108 <130 mg/dL 04/09/2015 10:28 PM CDT [facility] Blood Collection / Unknown 04/09/2015 9:37 PM CDT 04/09/2015 9:[address] [facility] - 04/09/2015 10:28 PM CDT TOTAL CHOLESTEROL mg/dL Desirable <200 Borderline high 200-239 High >=240 TRIGLYCERIDES mg/dL Normal <150 Borderline high 150-199 High 200-499 Very high >=500 HDL CHOLESTEROL mg/dL Low <40 Normal 40-59 Desirable >=60 LDL CHOLESTEROL mg/dL Optimal <100 Low risk 100-129 Borderline high 130-159 High 160-189 Very high >=190 NON HDL CHOLESTEROL mg/dL Optimal <130 Near Optimal 130-159 Borderline High 160-189 High 190-219 Very high >=220 Based on AHA/NCEP Guidelines us Joni D Spoon DO CHEMISTRY ORDERABLES Final Resu lt [facility] [place] CLIA # [id number] [address] [place] [phone] * (ABNORMAL) COMPREHENSIVE METABOLIC PANEL (04/09/2015 9:37 PM CDT) SODIUM 141 136 - 145 mmol/L 04/09/2015 10:[address] [facility] POTASSIUM 3.8 3.5 - 5.1 mmol/L 04/09/2015 10:[address] [facility] CHLORIDE 106 98 - 107 mmol/L 04/09/2015 10:[address] [facility] CO2 31 21 - 32 mmol/L 04/09/2015 10:28 PM CDT [facility] CALCIUM 8.8 8.5 - 10.1 mg/dL 04/09/2015 10:[address] [facility] BUN 7 7 - 18 mg/dL 04/09/2015 10:[address] [facility] CREATININE 0.78 0.60 - 1.30 mg/dL 04/09/2015 10:[address] [facility] GLUCOSE 105 74 - 106 mg/dL 04/09/2015 10:28 PM [facility] TOTAL PROTEIN 7.2 6.4 - 8.2 g/dL 04/09/2015 10:28 PM [facility] ALBUMIN 3.6 3.4 - 5.0 g/dL 04/09/2015 10:[address] [facility] BILIRUBIN TOTAL 0.1(L) 0.2 - 1.0 mg/dL 04/09/2015 10:[address] [facility] ALKALINE PHOSPHATASE 82 46 - 116 U/L 04/09/2015 10:[address] [facility] AST 18 15 - 37 U/L 04/09/2015 10:28 PM [facility] ALT 29(L) 30 - 65 U/L 04/09/2015 10:[address] [facility] GFR >60 >=60 mL/min/1.7 3 sq meter 04/09/2015 10:[address] [facility] Comment: eGFR has not been validated for use in the elderly (> 70 years of age), women, patients with serious co-morbid conditions, or persons with extremes of body size or muscle mass and should also be interpreted with caution in patients with acute kidney failure, dialysis dependent patients, patients reporting exceptional dietary intake (e.g. vegetarian diet, high protein diets, creatine supplementation), and patients with severe liver disease. Based on National Kidney Disease Education Program If patient is , please refer to the GFR result. GFR, >60 >=60 mL/min/1.7 3 sq meter 04/09/2015 10:28 PM CDT [facility] ANION GAP 4(L) 12 - 20 mmol/L 04/09/2015 10:28 PM CDT [facility] Blood Collection / Unknown 04/09/2015 9:37 PM CDT 04/09/2015 9:[address] [facility] - 04/09/2015 10:28 PM CDT Effective 05/11/2014, the Alkaline Phosphatase test method and reference range have changed. Please take this into consideration when interpreting results prior to or after this date. us Joni San DO CHEMISTRY ORDERABLES Final Resu lt [facility] [id number] [address] [place] [id number] * (ABNORMAL) CBC WITH DIFFERENTIAL (04/09/2015 9:37 PM CDT) WBC 9.1 4.0 - 10.0 K/uL 04/09/2015 9:51 PM CDT [facility] RBC 4.51 3.93 - 5.22 M/uL 04/09/2015 9:51 PM CDT [facility] HEMOGLOBIN 11.4 11.2 - 15.7 g/dL 04/09/2015 9:51 PM CDT [facility] HEMATOCRIT 36.1 34.1 - 44.9 % 04/09/2015 9:51 PM CDT [facility] MCV 80.0 79.4 - 94.8 fL 04/09/2015 9:51 PM CDT [facility] MCH 25.3(L) 25.6 - 32.2 pg 04/09/2015 9:51 PM CDT [facility] MCHC 31.6(L) 32.2 - 35.5 g/dL 04/09/2015 9:51 PM CDT [facility] RDW 14.9(H) 11.0 - 14.5 % 04/09/2015 9:51 PM CDT [facility] RDW-STDEV 43.0 36.9 - 56.9 fL 04/09/2015 9:51 PM CDT [facility] PLATELETS 313 163 - 337 K/uL 04/09/2015 9:51 PM CDT [facility] [place] MPV 10.2 10.0 - 14.8 fL 04/09/2015 9:51 PM CDT [facility] NEUTROPHILS 58 34 - 71 % 04/09/2015 9:51 PM CDT [facility] LYMPHOCYTES 33 19 - 52 % 04/09/2015 9:51 PM CDT [facility] MONOCYTES 8 5 - 13 % 04/09/2015 9:51 PM CDT [facility] EOSINOPHILS 1 1 - 6 % 04/09/2015 9:51 PM CDT [facility] BASOPHILS 0 0 - 1 % 04/09/2015 9:51 PM CDT [facility] NEUTROPHIL ABSOLUTE 5.27 1.56 - 6.13 K/uL 04/09/2015 9:51 PM CDT [facility] LYMPHOCYTE ABSOLUTE 2.99 1.20 - 3.40 K/uL 04/09/2015 9:51 PM CDT [facility] MONOCYTE ABSOLUTE 0.69(H) 0.24 - 0.36 K/uL 04/09/2015 9:51 PM CDT [facility] EOSINOPHIL ABSOLUTE 0.09 0.04 - 0.36 K/uL 04/09/2015 9:51 PM CDT [facility] BASOPHILS ABSOLUTE 0.03 0.01 - 0.08 K/uL 04/09/2015 9:[address] [facility] [place] IMMATURE GRANULOCYTES 0 % 04/09/2015 9:[address] [facility] [place] IMMATURE GRANULOCYTES ABSOLUTE 0.02 K/uL 04/09/2015 9:[address] [facility] Blood Collection / Unknown 04/09/2015 9:37 PM CDT 04/09/2015 9:37 PM CDT us Joni San DO HEMATOLOGY ORDERABLES Final Res ult [facility] [place] CLIA # [id number] [address] [place] [phone] documented in this encounter Visit Diagnoses Diagnosis Sick Other unknown and unspecified cause of morbidity or mortality documented in this encounter
[2025-09-02 15:06] LABS: Glucose Urine UA Negative (Normal); Nitrate Urine Negative (Negative)
[2025-09-02 15:14] LABS: Add Urine Microscopic? YES
[2025-09-02 15:30] LABS: Specific Gravity, Urine 1.033 (1.005-1.030); UA Slide Review UA Slide Review Perf
--- NOTE | 2025-09-02 16:12 | CTR_ITS ---
PROCEDURE INFORMATION: Exam: CT Abdomen And Pelvis With Contrast Exam date and time: 09/02/2025 4:33 PM Age: 35 years old Clinical indication: Abdominal pain; Localized; Left upper quadrant (luq); Additional info: Luq pain TECHNIQUE: Imaging protocol: Computed tomography of the abdomen and pelvis with contrast. Radiation optimization: All CT scans at this facility use at least one of these dose optimization techniques: automated exposure control; mA and/or kV adjustment per patient size (includes targeted exams where dose is matched to clinical indication); or iterative reconstruction. Contrast material: OMNI 350; Contrast volume: 100 ml; Contrast route: INTRAVENOUS (IV); COMPARISON: CT abdomen pelvis w con* [id number] 03/12/2023 1:49 PM RADIATION DOSE METRICS: Total DLP (mGy-cm): 571.58 FINDINGS: Lower chest: Heart size normal. Lungs are clear of an acute process. Liver: Normal. No mass. Gallbladder and biliary ducts: Status post cholecystectomy. . No ductal dilation. Pancreas: Normal. No ductal dilation. Spleen: Normal. No splenomegaly. Adrenal glands: Normal. No mass. Kidneys and ureters: Normal. No hydronephrosis. Stomach and bowel: Vngb-vp-gjndzpib distension of the stomach without wall thickening. Moderate amount of partially digested food stuff and fluid present. This may represent some delayed gastric emptying. Stomach shows no significant distension. Mild increased fluid in the small with nonobstructive air-fluid levels. This may represent represent stasis. There is a low-lying cecum. Large amount of stool in the cecum and ascending colon. Large amount of semi solid stool in the sigmoid colon . Segment of wall thickening colon at the splenic flexure and proximal descending colon. This may be related to the underdistention. There is no pericolonic stranding. However correlate for symptoms of colitis. Appendix: No evidence of appendicitis. Intraperitoneal space: Unremarkable. No free air. No significant fluid collection. Vasculature: Unremarkable. No abdominal aortic aneurysm. Lymph nodes: Unremarkable. No enlarged lymph nodes. Urinary bladder: Unremarkable as visualized. Reproductive: Retroverted uterus. Endometrial stripe measures 9.2 mm AP diameter on sagittal images within normal limits. Low-density area of the posteriorly measuring 1.4 x 0.4 cm may represent fibroid. 2.1 cm corpus luteal cyst with enhancing wall. Maybe a small amount of fluid in the both adnexa. Bones/joints: Unremarkable. No acute fracture. Soft tissues: Unremarkable. CT/CT abdomen pelvis w con* [id number] IMPRESSION: 1. 2.1 cm corpus luteal cyst. Suggestion of a small amount of free fluid in both adnexa. This may be physiological. It could be due to rupture of the cyst. 2. Small uterine fibroid. 3. Qosu-kk-mqodmlin distension of the stomach with moderate amount of partially digested food stuff and fluid present. 4. Large amount of fecal material in the cecum and ascending colon. Xthilhek-ao-tjhcq amount of semi solid stool in the sigmoid colon. Correlate for symptoms of constipation. 5. Segment of mild wall thickening splenic flexure and descending colon possibly due to underdistention. Correlate for symptoms of colitis. 5. Maybe some mild stasis of the small bowel..
[2025-09-02 16:15] LABS: Hematocrit 40.3 % (36-47); Hemoglobin 12.70 g/dL (11.27-16.99); Mean Corpuscular HGB Conc 31.5 g/dL (30-55); Mean Corpuscular Hemoglobin 25.9 pg (27-33); Mean Corpuscular Volume 82.1 fl (85-98); Nucleated Red Blood Cells % 0 %; Platelet Count 239 10^3/cmm (157-399); Red Blood Count 4.91 10^6/uL (3.85-5.65); White Blood Count 7.54 10^3/uL (3.29-11.43)
--- NOTE | 2025-09-02 16:15 | W.ED.ABDPA2 ---
HPI - Abdominal Pain General: Chief Complaint: Abdominal Pain Stated Complaint: L side Upper ABD Pain Time Seen by Provider: 09/02/25 16:07 Source: patient Mode of arrival: ambulatory Limitations: no limitations History of Present Illness: 35-year-old female states she has been having left upper quadrant abdominal pain has been going on for roughly 4 months. States intermittent nature when she has it usually only lasts a few minutes states today she been having severe pain has been going for 4 hours. She states the pain is worse with palpation along with movement denies any vomiting or diarrhea she denies any fever Related Data Date of Last Menstrual Period: 08/15/25 Home Medications ?Medication ?Instructions ?Recorded ?Confirmed semaglutide (weight loss) 0.25 0.25 mg SUBCUT Q7D 09/02/25 09/02/25 mg/0.5 mL subcutaneous pen injector Previous Rx's ?Medication ?Instructions ?Recorded CAM Boot #1 ea 03/01/24 cephalexin 500 mg capsule 500 mg PO TID 7 days #21 caps 09/02/25 naproxen 500 mg tablet (Naprosyn) 500 mg PO BID PRN pain #20 tabs 09/02/25 polyethylene glycol 3350 17 gram 17 g PO DAILY PRN constipation #14 09/02/25 oral powder packet (Miralax) ea Allergies Allergy/AdvReac Type Severity Reaction Status Date / Time Influenza Virus Vaccines Allergy Severe swelling, Verified 09/02/25 14:51 rash Latex, Natural Rubber Allergy Severe redness, Verified 09/02/25 14:51 swelling, itching Review of Systems GI: Reports: abdominal pain [facility] ED PFSH: Medical History (Updated 09/02/25 @ 17:31 by Eagle Salgado MD) Meningitis Headache No pertinent past medical history neg hx: hypertension, diabetes, thyroid, DVT/PE PCP: none Surgical History H/O dilation and curettage x1-- SAB H/O wisdom tooth extraction 2015 S/P cholecystectomy 2017 Family History Mother Diabetes Grandmother Breast cancer paternal, age onset 40's Father Diabetes Hypertension Hyperlipidemia Thyroid disease Grandfather Heart disease paternal Family/Other Uterine cancer maternal aunt, age onset 30's Ovarian cancer maternal aunt, age onset 30's Denies family history of Colon cancer Clotting disorder Anesthesia complication Bleeding disorder Stroke Social History Smoking and tobacco/nicotine status: unknown if used tobacco/nicotine Alcohol intake: never Substance/Drug Use: never Female Reproductive History: Date of last menstrual period: 08/15/25 Physical Exam Const: COMMON NORMALS: no acute distress, patient oriented x3 and healthy appearing HENMT: COMMON NORMALS: normocephalic and atraumatic HEAD & SCALP: normocephalic and atraumatic Eye: COMMON NORMALS: Equal, round and reactive pupils present and EOMs intact bilaterally PUPIL: Yes Equal, round and reactive pupils present Neck/C-Spine: COMMON NORMALS: full ROM and supple Chest: COMMONS NORMALS: normal inspection of the chest Resp: COMMON NORMALS: normal respiratory effort, No retractions, No use of accessory muscles and clear to auscultation bilaterally AUSCULTATION: clear to auscultation bilaterally Cardio: COMMON NORMALS: regular rate, regular rhythm and No murmurs present (Cardio) RATE: regular rate RHYTHM: regular rhythm GI: COMMON NORMALS: Normal to inspection, nondistended, normoactive bowel sounds present, Soft to palpation and no masses PALPATION: Yes Soft to palpation and Yes Tenderness to palpation present (GI) Details: LUQ Extremity: COMMON NORMALS: normal to inspection and full ROM Neuro: COMMON NORMALS: patient oriented x3, moves all extremities and no focal motor deficits Psych: COMMON NORMALS: mental status grossly normal, Normal thought process present and cooperative THOUGHT PROCESS: Normal thought process present Skin: COMMON NORMALS: no rashes or lesions noted and no wounds GENERAL SKIN EXAM: no rashes or lesions noted Course Vital Signs: Vital signs: Vital Signs Temperature 97.6 F 09/02/25 14:48 Pulse Rate 95 09/02/25 16:51 Respiratory Rate 17 09/02/25 16:32 Blood Pressure 90/61 09/02/25 16:51 Pulse Oximetry 99 09/02/25 16:51 MDM - Abdominal Pain Medical Decision Making 35-year-old female who presents here with abdominal pain has been intermittent for months that does worsen today in her left upper quadrant. Differential includes cholecystitis, pancreatitis, bowel obstruction. Blood work here shows no significant abnormality does have a urine showing a UTI. CT scan here does show constipation along with a corpus luteal cyst that could be causing her pain. Her pain here has improved she has no signs of acute surgical abdomen. Will start on MiraLAX along with Naprosyn and Keflex she is stable for discharge follow-up PCP return if worsening. Medical Records I reviewed the patient's medical records. Lab Data I reviewed the patient's lab results. 09/02/25 16:09 09/02/25 16:09 Labs/Radiology: Radiology Impressions Abdomen/Pelvis CT 09/02/25 16:12 IMPRESSION: 1. 2.1 cm corpus luteal cyst. Suggestion of a small amount of free fluid in both adnexa. This may be physiological. It could be due to rupture of the cyst. 2. Small uterine fibroid. 3. Mnzp-dz-muorhebq distension of the stomach with moderate amount of partially digested food stuff and fluid present. 4. Large amount of fecal material in the cecum and ascending colon. Goqwudxt-sz-phapz amount of semi solid stool in the sigmoid colon. Correlate for symptoms of constipation. 5. Segment of mild wall thickening splenic flexure and descending colon possibly due to underdistention. Correlate for symptoms of colitis. 5. Maybe some mild stasis of the small bowel.. Laboratory Results WBC 7.54 10^3/uL (3.29-11.43) 09/02/25 16:09 RBC 4.91 10^6/uL (3.85-5.65) 09/02/25 16:09 Hgb 12.70 g/dL (11.27-16.99) 09/02/25 16:09 Hct 40.3 % (36-47) 09/02/25 16:09 MCV 82.1 fl (85-98) L 09/02/25 16:09 MCH 25.9 pg (27-33) L 09/02/25 16:09 MCHC 31.5 g/dL (30-55) 09/02/25 16:09 RDW 14.2 % (12.1-15.1) 09/02/25 16:09 Plt Count 239 10^3/cmm (157-399) 09/02/25 16:09 MPV 9.8 fL (7.4-10.4) 09/02/25 16:09 Neut % (Auto) 59.8 % 09/02/25 16:09 Lymph % (Auto) 32.4 % 09/02/25 16:09 [place] % (Auto) 6.2 % 09/02/25 16:09 Eos % (Auto) 0.8 % 09/02/25 16:09 Baso % (Auto) 0.5 % 09/02/25 16:09 Neut # (Auto) 4.51 10^3/uL (1.8-7.7) 09/02/25 16:09 Lymph # (Auto) 2.4 10^3/uL (0.8-4.8) 09/02/25 16:09 [place] # (Auto) 0.5 10^3/uL (0.2-0.9) 09/02/25 16:09 Eos # (Auto) 0.1 10^3/uL (0.0-0.8) 09/02/25 16:09 Baso # (Auto) 0.0 10^3/uL (0.0-0.1) 09/02/25 16:09 Nucleated RBC % (auto) 0 % 09/02/25 16:09 Nucleated RBCs # 0.0 /100WBC 09/02/25 16:09 Sodium 138 mmol/L (136-145) 09/02/25 16:09 Potassium 3.8 mmol/L (3.5-5.1) 09/02/25 16:09 Chloride 104 mmol/L (98-107) 09/02/25 16:09 Carbon Dioxide 21 mmol/L (22-29) L 09/02/25 16:09 Anion Gap 16.8 (5-19) 09/02/25 16:09 BUN 14 mg/dL (6-20) 09/02/25 16:09 Creatinine 0.7 mg/dL (0.5-0.9) 09/02/25 16:09 GFR Calculation 96.4 mL/min (90-130) 09/02/25 16:09 Glucose 92 mg/dL (65-115) 09/02/25 16:09 Calculated Osmolality 286 mOsm/kg (285-295) 09/02/25 16:09 Calcium 9.2 mg/dL (8.5-10.5) 09/02/25 16:09 Total Bilirubin 0.3 mg/dL (0.15-1.2) 09/02/25 16:09 AST 19 U/L (0-32) 09/02/25 16:09 ALT 14 U/L (0-33) 09/02/25 16:09 Alkaline Phosphatase 62 U/L (35-105) 09/02/25 16:09 Total Protein 7.0 g/dL (6.6-8.7) 09/02/25 16:09 Albumin 4.1 g/dL (3.5-5.2) 09/02/25 16:09 Globulin 2.9 g/dL (1.3-4.6) 09/02/25 16:09 Lipase 51 U/L (13-60) 09/02/25 16:09 Urine Color Yellow (Yellow) 09/02/25 14:53 Urine Appearance Turbid (CLEAR) A 09/02/25 14:53 Urine pH 5.5 (5-7) 09/02/25 14:53 Ur Specific [place] 1.033 (1.005-1.030) H 09/02/25 14:53 Urine Protein 1+ (Negative) A 09/02/25 14:53 Urine Glucose (UA) Negative (Normal) 09/02/25 14:53 Urine Ketones Trace (Negative) 09/02/25 14:53 Urine Blood 1+ (Negative) A 09/02/25 14:53 Urine Nitrate Negative (Negative) 09/02/25 14:53 Urine Bilirubin Negative (Negative) 09/02/25 14:53 Urine Urobilinogen 1.0 mg/dL (Negative) 09/02/25 14:53 Ur Leukocyte Esterase 2+ (Negative) A 09/02/25 14:53 Urine RBC 3-5 /hpf (0-2) 09/02/25 14:53 Urine WBC >100 /hpf (0-5) H 09/02/25 14:53 Ur Squamous Epith Cells 21-50 /hpf (0-5) H 09/02/25 14:53 Amorphous Sediment Not Reportable 09/02/25 14:53 Urine Bacteria 4+ /hpf (NONE) H 09/02/25 14:53 Hyaline Casts 15.71 /lpf 09/02/25 14:53 All radiology interpretation(s) finalized by discharge Discharge Plan Discharge Patient Disposition: Home Clinical Impression: Ovarian cyst, UTI (urinary tract infection) Abdominal pain Qualifiers: Abdominal location: left upper quadrant Qualified Code(s): R10.12 - Left upper quadrant pain Constipation Qualifiers: Constipation type: unspecified constipation type Qualified Code(s): K59.00 - Constipation, unspecified Condition: Stable Prescriptions: New naproxen [Naprosyn] 500 mg tablet 500 mg PO BID PRN (Reason: pain) Qty: 20 0RF polyethylene glycol 3350 [Miralax] 17 gram powder in packet 17 g PO DAILY PRN (Reason: constipation) Qty: 14 0RF cephalexin 500 mg capsule 500 mg PO TID 7 Days Qty: 21 0RF No Action (DME) CAM Boot See Rx Instructions .Route .MEDSUPPLY Qty: 1 0RF Rx Instructions: As directed by HOME semaglutide (weight loss) 0.25 mg/0.5 mL Pen Injector 0.25 mg SUBCUT Q7D Discharge Orders: Discharge ED (Routine); Ordered 09/02/25 Ordered By: Eagle Salgado Referrals: Radha Souza FNP [Primary Care Provider, Family Practice] - 4-7 days Discharge Diet: Advance as tolerated Discharge Activity: Resume usual activity Patient Instructions: Ovarian Cyst (ED), Constipation (ED), Abdominal Pain (ED) Print Language: Czech Coding Level of Care Code ED Dog License Officer Supervisor for Filemon Negrete
[2025-09-02 16:32] VITALS: RESP 17
[2025-09-02 16:32] LABS: Alanine Aminotransferase 14 U/L (0-33); Albumin Level 4.1 g/dL (3.5-5.2); Alkaline Phosphatase 62 U/L (35-105); Anion Gap 16.8 (5-19); Aspartate Amino Transferase 19 U/L (0-32); Blood Urea Nitrogen 14 mg/dL (6-20); Calcium 9.2 mg/dL (8.5-10.5); Carbon Dioxide 21 mmol/L (22-29); Chloride 104 mmol/L (98-107); Globulin 2.9 g/dL (1.3-4.6); Glucose 92 mg/dL (65-115); Lipase 51 U/L (13-60); Osmolality Calculated 286 mOsm/kg (285-295); Potassium 3.8 mmol/L (3.5-5.1); Sodium 138 mmol/L (136-145); Total Protein 7.0 g/dL (6.6-8.7)
[2025-09-02] MEDS: morphine 4 mg/mL SDV 1 mL IVP (16:32)
[2025-09-02] MEDS: cefTRIAXone 1,000 mg SDV 1000 MG IVP (16:33)
[2025-09-02] MEDS: ondansetron 2 mg/ML SDV 2 mL 4 MG IVP (16:33)
[2025-09-02] MEDS: iohexol 350 mg/mL 500 mL Btl (per mL) IV (16:37)
[2025-09-02 16:51] VITALS: BP 90/61; PULSE 95; O2SAT 99
[2025-09-02 17:35] VITALS: BP 91/61; PULSE 67; O2SAT 99
== END 2025-09-02 17:41 | disposition home or self-care (01) ==
PROVIDERS: Physician Assistant; Emergency Provider Emergency Medicine; PCP Nurse Practitioner Family
DX: N83.209 Unspecified ovarian cyst, unspecified side (principal); N39.0 Urinary tract infection, site not specified; R10.12 Left upper quadrant pain; K59.00 Constipation, unspecified
CPT/HCPCS: 36415; 74177; 80053; 81001; 83690; 85025; 96374; 96375; 99285; J0696; J2270; J2405